=== PATIENT | female | born 1940 | race Caucasian/White ===

== ENCOUNTER → 2018-03-31 13:59 | Outpatient (CLI) | payer MEDICARE, SELFPAY ==
--- NOTE | 2018-03-31 14:02 | ECHOD_ITS ---
Reason For Study: VALVE REPLACEMENT-EVAL Procedure This was a 2D Doppler, Color Flow transthoracic echocardiogram. Exam performed in department. Left Ventricle Normal size and thickness. The estimated ejection fraction is 75 %. Stage 2 diastolic dysfunction. No regional wall motion abnormalities noted. Right Ventricle Normal size and thickness. Normal systolic function. Atria Normal left atrium. Normal right atrium. Normal atrial septum. Bubble contrast study negative for right to left interatrial shunt. Mitral Valve Moderate focal mitral valve thickening. Tricuspid Valve Normal tricuspid valve. Trivial tricuspid valve insufficiency. Right ventricular systolic pressure estimated to be 38 mmHg. Aortic Valve Trisinus/trileaflet aortic valve. Aortic sclerosis, no stenosis. Pulmonic Valve The pulmonic valve is not well visualized. Great Vessels Normal aortic root. Normal arch. Normal inferior vena cava. Inferior vena cava collapse with sniff. Pericardium/Pleural No pericardial effusion. Medication 22 gauge I.V. with prn adaptor inserted into right arm. Performed a rapid injection of agitated mix of 9 cc saline and 1cc air to assess for atrial septal defect. MMode/2D Measurements & Calculations LVIDd: 3.4 cm IVSd: 1.2 cm LVOT diam: 2.0 cm LVIDs: 2.3 cm LVPWd: 0.92 cm LVOT area: 3.1 cm2 RVDd: 2.1 cm FS: 31.4 % Ao root diam: 3.0 cm LAV(MOD-bp): 28.2 ml EDV(MOD-sp4): 49.5 ml LAV(MOD-bp) Indexed: 17.0 ml/m2 ESV(MOD-sp4): 15.2 ml LAV(MOD-sp2): 35.4 ml EF(MOD-sp4): 69.4 % LAV(MOD-sp4): 22.3 ml SV(MOD-sp4): 34.4 ml LA A4 area: 10.7 cm2 RA A4 area: 9.7 cm2 Time Measurements MV dec time: 0.53 sec Doppler Measurements & Calculations MV E max wenceslao: 60.5 cm/sec Lat Peak E' Wenceslao: 6.7 cm/sec Med Peak E' Wenceslao: 9.3 cm/sec MV A max wenceslao: 143.5 cm/sec E/E' lat: 9.1 E/E' med: 6.5 MV E/A: 0.42 MV V2 max: 140.1 cm/sec MV P1/2t max wenceslao: 67.1 cm/sec Ao V2 max: 123.4 cm/sec MV max P.8 mmHg MV P1/2t: 172.2 msec Ao max P.1 mmHg MV V2 mean: 61.4 cm/sec MV dec slope: 114.1 cm/sec2 LITO(V,D): 3.3 cm2 MV mean P.9 mmHg MVA(P1/2t): 1.3 cm2 MV V2 VTI: 31.6 cm LV V1 max: 132.8 cm/sec PA V2 max: 101.0 cm/sec TR max wenceslao: 273.6 cm/sec LV V1 max P.1 mmHg TR max P.1 mmHg Interpretation Summary The estimated ejection fraction is 75 %. Stage 2 diastolic dysfunction. Bubble contrast study negative for right to left interatrial shunt. Trivial tricuspid valve insufficiency. Right ventricular systolic pressure estimated to be 38 mmHg. Compared to echo report dated 05/11/2016, LV function has remained the same. RVSP has decreased from 44 to 38 mm Hg. Ordering Physician: João Melvin Referring Physician: SAGRARIO KATE Performed By: Jessica Reeves RDCS
== END ==
PROVIDERS: Family Provider Internal Medicine; PCP Internal Medicine; Visit Provider Internal Medicine Cardiovascular Disease
DX: I35.0 Nonrheumatic aortic (valve) stenosis (principal); Z95.2 Presence of prosthetic heart valve
CPT/HCPCS: 93306; A4216

== ENCOUNTER → 2019-01-21 12:26 | Outpatient (CLI) | payer MEDICARE, SELFPAY ==
--- NOTE | 2019-01-21 12:28 | STE_ITS ---
Reason For Study: Pre-Op Stress Results Protocol: Dobutamine Stress Echocardiogram Maximum Predicted HR: 140 bpm Target HR: 119 bpm % Maximum Predicted HR: 90 % DurationHeart Rate Stage (mm:ss) (bpm) BP Comment Baseline 65 140/96No Chest Pain DSE 10 MCG 6:18 102 138/83No Chest Pain DSE 20 MCG 2:57 126 125/96No Chest Pain Recovery 85 121/64No Chest Pain Stress Duration: 9:15 mm:ss Maximum Stress HR: 126 bpm METS: 1 Baseline Echocardiogram Findings The estimated ejection fraction is 65 %. Stress Echo Wall motion Data Resting WM Intermediate WM Stress WM Resting Wall Motion Wall Motion Stress No regional wall motion No regional wall motion abnormalities noted. abnormalities noted. EKG Data Normal intervals are noted. The patient was titrated from 10 mcg to a maximum of 20 mcg of dobutamine during the stress. The maximum heart rate attained was 126 beats per minute. This was 90% of maximum predicted heart rate. During dobutamine infusion, there were no ST or T wave changes noted to suggest ischemia. No clinical angina was noted. Interpretation Summary The estimated ejection fraction is 65 %. Normal, adequate, dobutamine echocardiogram. Negative for ischemia by EKG and echocardiographic criteria. No anginal symptoms noted. Rare PVCs and PACs noted, which is a nonspecific finding with dobutamine. Appropriate blood pressure response to dobutamine. Test terminated due to the attainment of target heart rate. Final LVEF of 75%. No complications. Ordering Physician: João Melvin Referring Physician: Vivi Blanchard Performed By: Evy Claros, LATRELL, RVT
== END ==
PROVIDERS: Family Provider Internal Medicine; PCP Internal Medicine; Referring Provider Internal Medicine Cardiovascular Disease; Visit Provider Internal Medicine Cardiovascular Disease
DX: Z01.810 Encounter for preprocedural cardiovascular examination (principal); I27.21 Secondary pulmonary arterial hypertension; I34.2 Nonrheumatic mitral (valve) stenosis; I35.0 Nonrheumatic aortic (valve) stenosis; I49.5 Sick sinus syndrome; R06.09 Other forms of dyspnea; Z95.0 Presence of cardiac pacemaker
CPT/HCPCS: 93017; 93350; J7040; A4216

== ENCOUNTER → 2019-01-27 13:09 | Outpatient (CLI) | payer MEDICARE, SELFPAY ==
[2018-09-25 14:48] VITALS: BMI 22.4
--- NOTE | 2019-01-27 13:11 | ECHOD_ITS ---
Reason For Study: PULMONARY HTN Procedure This was a 2D Doppler, Color Flow transthoracic echocardiogram. Exam performed in department. Left Ventricle Normal size and thickness. The estimated ejection fraction is 75 %. Stage 1 diastolic dysfunction. No regional wall motion abnormalities noted. Right Ventricle Normal size and thickness. ICD or pacer leads identified within the right ventricle. Normal systolic function. Atria Normal left atrium. Normal right atrium. Normal atrial septum. Mitral Valve Mild focal mitral valve calcification. Tricuspid Valve Normal tricuspid valve. Trivial tricuspid valve insufficiency. Right ventricular systolic pressure estimated to be 37 mmHg. Aortic Valve Trisinus/trileaflet aortic valve. Mild diffuse aortic valve thickening. Pulmonic Valve Normal pulmonic valve. Great Vessels Normal aortic root. Normal arch. Normal inferior vena cava. Inferior vena cava collapse with sniff. Pericardium/Pleural No pericardial effusion. MMode/2D Measurements & Calculations LVIDd: 3.7 cm IVSd: 1.1 cm Ao root diam: 3.4 cm LVIDs: 2.3 cm LVPWd: 1.1 cm RVDd: 3.0 cm FS: 36.3 % LAV(MOD-bp): 19.2 ml LVAd ap4: 24.2 cm2 SV(MOD-sp4): 37.7 ml LAV(MOD-bp) Indexed: 11.8 ml/m2 EDV(MOD-sp4): 61.3 ml LAV(MOD-sp2): 27.6 ml EDV(sp4-el): 64.7 ml LAV(MOD-sp4): 12.6 ml LVAs ap4: 13.3 cm2 ESV(MOD-sp4): 23.7 ml ESV(sp4-el): 23.8 ml EF(MOD-sp4): 61.4 % EF(sp4-el): 63.2 % SV(sp4-el): 40.9 ml LA A4 area: 8.0 cm2 LA dimension(2D): 3.3 cm RA A4 area: 8.8 cm2 Time Measurements MV dec time: 0.47 sec Doppler Measurements & Calculations MV E max wenceslao: 76.1 cm/sec Lat Peak E' Wenceslao: 5.0 cm/sec Med Peak E' Wenceslao: 6.9 cm/sec MV A max wenceslao: 115.0 cm/sec E/E' lat: 15.1 E/E' med: 11.0 MV E/A: 0.66 MV V2 max: 125.8 cm/sec Ao V2 max: 152.2 cm/sec AI max wenceslao: 509.0 cm/sec MV max P.3 mmHg Ao max P.3 mmHg AI max P.6 mmHg MV V2 mean: 67.2 cm/sec MV mean P.1 mmHg AI dec slope: 210.8 cm/sec2 MV V2 VTI: 30.6 cm AI P1/2t: 707.2 msec LV V1 max: 136.9 cm/sec PA V2 max: 89.6 cm/sec TR max wenceslao: 284.1 cm/sec LV V1 max P.5 mmHg TR max P.3 mmHg Interpretation Summary The estimated ejection fraction is 75 %. Stage 1 diastolic dysfunction. Right ventricular systolic pressure estimated to be 37 mmHg. Trivial tricuspid valve insufficiency. Compared to echo report dated 03/31/2018, LV Function has remained the same. RVSP has remained the same. Ordering Physician: João Melvin Referring Physician: SAGRARIO KATE Performed By: Jessica Reeves RDCS
== END ==
PROVIDERS: Family Provider Internal Medicine; PCP Internal Medicine; Referring Provider Internal Medicine Cardiovascular Disease; Visit Provider Internal Medicine Cardiovascular Disease
DX: I27.21 Secondary pulmonary arterial hypertension (principal); I49.5 Sick sinus syndrome; I34.2 Nonrheumatic mitral (valve) stenosis; I35.0 Nonrheumatic aortic (valve) stenosis; Z95.0 Presence of cardiac pacemaker
CPT/HCPCS: 93306

== ENCOUNTER → 2020-07-21 13:48 | Outpatient (CLI) | payer MEDICARE, SELFPAY ==
[2020-05-15 14:45] VITALS: BMI 25.4
--- NOTE | 2020-07-21 13:50 | ECHOD_ITS ---
Reason For Study: PHTN Procedure This was a 2D Doppler, Color Flow transthoracic echocardiogram. The study was technically difficult. Due to poor accoustic windows. Exam performed in department. Left Ventricle Normal size and thickness. The estimated ejection fraction is 75 %. Stage 1 diastolic dysfunction. No regional wall motion abnormalities noted. Right Ventricle Normal size and thickness. Normal systolic function. Atria Normal left atrium. Normal right atrium. Normal atrial septum. Mitral Valve Moderate focal mitral valve thickening. Tricuspid Valve Normal tricuspid valve. Trivial tricuspid valve insufficiency. Right ventricular systolic pressure estimated to be 34 mmHg. Aortic Valve Normal aortic valve. Trisinus/trileaflet aortic valve. Pulmonic Valve Normal pulmonic valve. Great Vessels Normal aortic root. Normal arch. Normal inferior vena cava. Inferior vena cava collapse with sniff. Pericardium/Pleural No pericardial effusion. MMode/2D Measurements & Calculations LVIDd: 3.7 cm IVSd: 1.1 cm LAV(MOD-bp): 22.6 ml LVIDs: 2.5 cm LVPWd: 1.1 cm LAV(MOD-bp) Indexed: 13.7 ml/m2 FS: 31.7 % LAV(MOD-sp2): 27.2 ml LAV(MOD-sp4): 17.2 ml LA dimension(2D): 3.8 cm LA A4 area: 9.1 cm2 Doppler Measurements & Calculations MV E max wenceslao: 64.5 cm/sec Lat Peak E' Wenceslao: 4.7 cm/sec Med Peak E' Wenceslao: 7.7 cm/sec MV A max wenceslao: 119.8 cm/sec E/E' lat: 13.6 E/E' med: 8.3 MV E/A: 0.54 Ao V2 max: 110.8 cm/sec LV V1 max: 104.0 cm/sec TR max wenceslao: 270.2 cm/sec Ao max P.9 mmHg LV V1 max P.3 mmHg TR max P.2 mmHg Interpretation Summary The estimated ejection fraction is 75 %. Stage 1 diastolic dysfunction. Trivial tricuspid valve insufficiency. Right ventricular systolic pressure estimated to be 34 mmHg. Compared to echo report dated 01/27/2019, no appreciable changes noted. The study was technically difficult. Ordering Physician: João Melvin Referring Physician: Vivi Blanchard Performed By: Sarah Hunter, LATRELL, RVT
== END ==
PROVIDERS: PCP Internal Medicine; Referring Provider Internal Medicine Cardiovascular Disease; Visit Provider Internal Medicine Cardiovascular Disease
DX: I27.21 Secondary pulmonary arterial hypertension (principal)
CPT/HCPCS: 93306

== ENCOUNTER 2020-12-22 11:08 | Outpatient (RCR) | payer MEDICARE, SELFPAY ==
[2020-12-14 14:14] VITALS: BMI 25.0
== END 2020-12-22 23:59 ==
LOC: IMMUN 11:08
PROVIDERS: PCP Internal Medicine; Visit Provider Family Medicine
DX: Z23 Encounter for immunization (principal)
CPT/HCPCS: 0011A; 0012A; 91301

== ENCOUNTER 2023-09-08 18:31 | Observation (INO) | payer MEDICARE, SELFPAY ==
[2023-09-08 18:32] VITALS: BP 153/91; PULSE 87; RESP 24; TEMP 36.7; O2SAT 92
[2023-09-08 18:35] VITALS: BMI 26.7
--- NOTE | 2023-09-08 18:37 | EKG12_ITS ---
Test Reason : FALL Blood Pressure : / mmHG Vent. Rate : 093 BPM Atrial Rate : 093 BPM P-R Int : 148 ms QRS Dur : 056 ms QT Int : 364 ms P-R-T Axes : 095 014 -22 degrees QTc Int : 452 ms Sinus rhythm with occasional Premature ventricular complexes ST & T wave abnormality, consider inferior ischemia Abnormal ECG When compared with ECG of 03-JUN-2016 13:16, Premature ventricular complexes are now Present Vent. rate has increased BY [address] now depressed in Anterior leads T wave inversion now evident in Inferior leads T wave inversion now evident in Anterior leads Confirmed by JACQUE VAZQUEZ, LATHA ([id number]), commercial production editor ADAM KEENAN ([id number]) on 09/10/2023 2:26:25 PM Referred By: MARIBEL Confirmed By:LATHA SANTILLAN MD
--- NOTE | 2023-09-08 18:38 | CT_ITS ---
EXAM: CT HEAD AND MAXILLOFACIAL WITHOUT INTRAVENOUS CONTRAST CLINICAL INDICATION: altered mental status TECHNIQUE: Helically acquired images were obtained of the head/brain and face without intravenous contrast. This CT exam was performed using one or more of the following dose reduction techniques: automated exposure control, adjustment of the mA and/or kV according to patient size, and/or use of iterative reconstruction technique. COMPARISON: No relevant prior studies available. FINDINGS: BRAIN AND EXTRA-AXIAL SPACES: There is non-specific periventricular hypoattenuation which is most commonly related to chronic microvascular ischemic disease in a patient of this age. There is no mass, mass-effect, or shift of the midline structures. No evidence of acute infarct or acute intracranial hemorrhage. There is no evidence of pathologic extra-axial fluid. There is no hydrocephalus. Patent basal cisterns. Posterior fossa structures are unremarkable. BONES/JOINTS: Bilateral TMJ arthrosis. No discrete lytic or blastic abnormalities. No displaced fracture. SOFT TISSUES: Left frontal scalp soft tissue swelling. No discrete fluid collections. VASCULATURE: Arteriosclerosis. SINUSES: Hyperdensity within the left maxillary sinus likely secondary to inspissated secretions or perhaps fungal elements. MASTOID AIR CELLS: No significant abnormality. Clear. ORBITS: No acute findings. DENTAL: No significant findings. No periodontal osseous erosion. IMPRESSION: 1. Left frontal scalp soft tissue swelling. No evidence of acute maxillofacial fracture. 2. Chronic microvascular ischemic changes. No CT evidence of acute intracranial pathology. 3. Chronic left maxillary sinus disease. Follow-up as clinically indicated. EXAM: CT CERVICAL SPINE WITHOUT INTRAVENOUS CONTRAST CLINICAL INDICATION: altered mental status TECHNIQUE: Helically acquired images were obtained of the cervical spine without intravenous contrast. 2D reformatted images were reviewed. This CT exam was performed using one or more of the following dose reduction techniques: automated exposure control, adjustment of the mA and/or kV according to patient size, and/or use of iterative reconstruction technique. COMPARISON: No relevant prior studies available. FINDINGS: VERTEBRAE: Multilevel facet, uncovertebral joint, and endplate osteophytosis. Degenerative anterolisthesis of C4 on C5. No fracture. No discrete lytic or blastic abnormality. Normal craniocervical junction and cervicothoracic junction. DISCS/SPINAL CANAL/NEURAL FORAMINA: Mild to moderate multilevel spinal canal stenosis. Multilevel intervertebral disc height loss. Mild to moderate multilevel neural foraminal narrowing. SOFT TISSUES: No significant abnormality. No prevertebral soft tissue swelling. VASCULATURE: Vascular calcifications in the neck. LYMPH NODES: No significant abnormality. No cervical adenopathy. LUNG APICES: Apical pulmonary scarring bilaterally. CT/Spine Cervical without Contras IMPRESSION: Degenerative changes in the cervical spine. No evidence of acute fracture. Electronically Signed: García Rivera DO at 20:35 EDT ,
[2023-09-08 18:47] LABS: Absolute Lymphocyte Count 0.98 X10^3/uL (0.83-4.51); Basophil# 0.08 X10^3/uL; Basophil% 0.6 % (0-1); Eosinophil# 0.03 X10^3/uL; Eosinophils% 0.2 % (0-5); Hematocrit 53.1 % (37-47); Hemoglobin 17.1 g/dL (12.0-15.0); Lymphocyte # 0.98 X10^3/ul (0.83-4.51); Mean Corp Hgb Conc 32.2 g/dL (32-36); Monocyte% 6.4 % (0-10); NRBC Flagged by Analyzer 0 % (0-5); Neutrophil # 11.98 X10^3/uL (2.7-7.7); Neutrophil % 85.4 % (47-70); Platelet Count 299 K/mm3 (150-450); RBC Distribution Width CV 13.4 % (11.6-14.6); RBC Distribution Width SD 44.3 fl (35.1-43.9)
--- NOTE | 2023-09-08 18:47 | EDS_ITS ---
HPI History of Present Illness Chief Complaint: Fall Narrative Narrative: 83-year-old female presenting with confusion. She is awake and alert and answering questions. She does not recall what happened to her. She was found down on the floor of unknown downtime. She does not know how she got there. She does not know if she fainted. She cannot recall the last and she remembers. She states he wakes up every day and does the same thing. She complains of some minor hip pain on the left but is able to move her left hip. Per her daughter she was found on the floor facedown and the last time she was known to be well was 1500 yesterday. Patient recently had surgery to remove a skin cancer from her face but does not recall this. She has stitches in place and the seem to be intact. [facility] Medical History Allergic rhinitis COPD (chronic obstructive pulmonary disease) LEAL (dyspnea on exertion) Dyspnea Essential hypertension GERD (gastroesophageal reflux disease) JONATAN (obstructive sleep apnea) Secondary pulmonary arterial hypertension Sick sinus syndrome Syncope Home Medications fluticasone propionate 50 mcg/actuation nasal spray,suspension (Children's Flonase Allergy Relief) 100 mcg intranasal QDAY PRN 12/24/17 [History Last Taken Unknown] cyanocobalamin (vitamin B-12) 250 mcg tablet 250 mcg PO QDAY 03/23/18 [History Last Taken Unknown] lisinopril 10 mg tablet 10 mg PO DAILY #90 tabs 12/24/19 [Rx Last Taken Unknown] cetirizine 10 mg tablet (All Day Allergy (cetirizine)) 10 mg PO DAILY PRN 06/18/21 [History Last Taken Unknown] vitamin E (dl, acetate) 180 mg (400 unit) capsule 180 mg PO DAILY 06/18/21 [History Last Taken Unknown] metoprolol succinate 25 mg tablet,extended release 24 hr 25 mg PO DAILY #90 tabs 08/25/23 [Rx Last Taken Unknown] Allergy/AdvReac Type Severity Reaction Status Date / Time No Known Allergies Allergy Verified 09/08/23 18:32 Family History Mother pacemaker Father pacemaker Surgical History History of left heart catheterization (~05/13/16) History of tonsillectomy Presence of cardiac pacemaker (~04/2016) Social History household members: none Smoking Status: Never smoker second hand exposure: No alcohol intake: never substance use type: does not use caffeine: No what type of physical activity do you participate in: other frequency: 3-4 times per week ROS ROS ED Review of Systems ROS Unobtainable: due to mental status EXAM Physical Exam Const Vital Signs: 09/08/23 18:32 09/08/23 18:44 09/08/23 20:22 Temperature 98.1 F Temperature Source Oral Pulse Rate 87 87 Respiratory Rate 24 H 28 H Respiratory Effort Normal Respiratory Depth Normal Respiratory Pattern Normal Blood Pressure 153/91 H Blood Pressure Mean 111 Pulse Ox 92 97 Oxygen Delivery Method Room Air Room Air Nasal Cannula Oxygen Flow Rate (L/min) 2 09/08/23 21:36 09/08/23 22:18 Temperature Temperature Source Pulse Rate 78 76 Respiratory Rate 26 H 24 H Respiratory Effort Respiratory Depth Respiratory Pattern Blood Pressure Blood Pressure Mean Pulse Ox 98 96 Oxygen Delivery Method Nasal Cannula Nasal Cannula Oxygen Flow Rate (L/min) 2 2 Positive well nourished General Appearance ED: NAD HEENT Reports TM's clear HEENT Narrative: Bruising noted under the bilateral eyes and the lower eyelids Tympanic Membrane ED: Yes TM's clear Eyes PERRL and EOMs intact bilaterally Chest Wall inspection of chest normal Resp normal respiratory effort and clear to auscultation bilaterally Auscultation: Negative for rales, rhonchi or wheezes Cardio regular rhythm Rate: regular rate GI normal to inspection, nondistended, normoactive bowel sounds Back/Spine no thoracic nor lumbar tenderness Extremity Extremity Narrative: Tenderness over the left greater trochanter however the patient is able to flex the hip up to the bed. Negative logroll. No leg shortening or external rotation General Extremety ED: Yes tenderness Neuro oriented x3, CN's II-XII intact bilaterally, moves all extremities, no focal motor deficits and no sensory deficits noted Susy Coma Scale: document GCS findings Spontaneous Obeys Commands Confused 14 Sensorium / Orientation: alert Motor Exam: strength 5/5 throughout Skin Skin Narrative: As described above MDM MDM MDM Narrative Medical decision making narrative: Presenting with confusion. She is awake and alert and answering questions but does not recall any events. She does not know why she was on the floor. She does not know how long she has been there. Differential includes but is not limited to ACS, PE, CHF, pneumonia, COVID, influenza, syncope, intracranial hemorrhage, skull fracture, C-spine fracture, pelvic fracture, left hip fracture, dehydration, dysrhythmia, electrolyte abnormalities, dehydration, UTI, rhabdomyolysis. CBC will be obtained to assess white blood cell count, hemoglobin, platelets. CMP to assess liver function, renal function, electrolytes, glucose, anion gap. High-sensitivity troponin and EKG will be obtained to assess for ischemia/dysrhythmia. Chest x-ray to rule out pneumonia. Urinalysis to be obtained to assess for UTI. CPK will be obtained to assess for rhabdomyolysis. BNP to assess for CHF. Left hip x-ray to rule out a fracture. Patient given a liter normal saline. We will also obtain a CT of the brain, cervical spine, facial bones. CBC shows leukocytosis of 14.0. Hemoglobin concentrated at 17.1. Platelets are normal at 299. Creatinine is elevated at 1.03 consistent with MARY. BUN creatinine ratio was normal however. Total bilirubin elevated 1.4. Direct bilirubin 0.46, AST 47. CPK 873. Patient was given a liter of normal saline. EKG on my interpretation shows sinus rhythm at a ventricular rate of 83 bpm with occasional PVCs. No ST elevation or depression. Chest x-ray on my interpretation does appear to look like pulmonary vascular congestion however BNP 45.7. High-sensitivity troponin is 21. Urinalysis shows nitrites but no other evidence of infection. CT brain, cervical spine, facial bones all within normal limits. After given a liter of normal saline and her CPK was repeated and has gone up to 891 suggest mild rhabdomyolysis. Left hip x-ray on my interpretation showed no acute fracture however the radiologist is concerned there is a slight lucency line consistent with nondisplaced fracture. Patient able to move her left leg on exam without much difficulty. Because of the interpretation I did get a CT of the lower extremity which shows no acute fracture. Ultimately since the patient lives alone she will need to be admitted. Discussed all findings with she and her daughter. Impression: 1. Acute encephalopathy 2. Mild rhabdomyolysis 3. MARY 4. Leukocytosis 5. Left hip contusion Lab Data Attestation: I reviewed the patient's lab results. Labs: Laboratory Results - last 24 hr 09/08/23 09/08/23 09/08/23 18:40 18:40 19:10 WBC 14.0 H RBC 5.90 H Hgb 17.1 H Hct 53.1 H MCV 90.0 MCH 29.0 MCHC 32.2 RDW Std Deviation 44.3 H RDW Coeff of Shilpa 13.4 Plt Count 299 MPV 9.0 Immature Gran % (Auto) 0.400 Neut % (Auto) 85.4 H Lymph % (Auto) 7.0 L [place] % (Auto) 6.4 Eos % (Auto) 0.2 Baso % (Auto) 0.6 Absolute Neuts (auto) 12.0 H Absolute Lymphs (auto) 0.98 Nucleated RBC % 0 Sodium 137 Potassium 4.3 Chloride 100 Carbon Dioxide 30.0 Anion Gap 7 BUN 17 Creatinine 1.03 H Est GFR (MDRD) Af Amer 65 Est GFR (MDRD) Non-Af 54 L BUN/Creatinine Ratio 16.5 Glucose 116 H Calcium 9.2 Total Bilirubin 1.40 H Direct Bilirubin 0.46 H AST 47 H ALT 27 Alkaline Phosphatase 71 Total Creatine Kinase 873 H 891 H Troponin I High Sens 21 B-Natriuretic Peptide 45.7 Total Protein 7.3 Albumin 3.4 Globulin 3.9 Albumin/Globulin Ratio 0.9 Urine Color Yellow Urine Clarity Clear Urine pH 5.0 Ur Specific [place] 1.030 Urine Protein 30 H Urine Glucose (UA) Normal Urine Ketones 15 H Urine Occult Blood 150 H Urine Nitrite Positive H Urine Bilirubin 1 H Urine Urobilinogen 1 H Ur Leukocyte Esterase 25 H Urine RBC 0 SEEN Urine WBC 0 SEEN Ur Squamous Epith Cells 0-5 SEEN Urine Bacteria 0 SEEN Urine Mucus 0 SEEN Radiography Diagnostic Testing: Clinical Impression(s) from Imaging Studies Brain CT 09/08/23 18:36 IMPRESSION: Degenerative changes in the cervical spine. No evidence of acute fracture. Electronically Signed: García Rivera DO at 20:35 EDT , Cervical Spine CT 09/08/23 18:38 IMPRESSION: Degenerative changes in the cervical spine. No evidence of acute fracture. Electronically Signed: García Rivera DO at 20:35 EDT , Facial/Sinus 09/08/23 18:38 IMPRESSION: Degenerative changes in the cervical spine. No evidence of acute fracture. Electronically Signed: García Rivera DO at 20:35 EDT , Chest X-Ray 09/08/23 19:34 IMPRESSION: Apparent pulmonary vascular congestion and right basilar scarring versus intrapleural fluid suggesting a small pleural effusion. Electronically Signed: García Rivera DO at 20:26 EDT , Hip/Pelvis X-Ray 09/08/23 19:34 IMPRESSION: Subtle lucency in the intertrochanteric region of the left femur perhaps indicating nondisplaced fracture. Recommend MRI or CT. Electronically Signed: García Rivera DO at 20:30 EDT , Lower Extremity CT 09/08/23 21:06 IMPRESSION: No discrete evidence of an acute fracture or dislocation. Specifically, no intratrochanteric fracture as suspected on comparison radiograph. Colonic diverticulosis without evidence of diverticulitis. Electronically Signed: García Rivera DO at 21:44 EDT , Discharge Plan Triage Chief Complaint: Fall ED Provider: Corby Frank Dx/Rx/DC Orders Prescriptions: No Action fluticasone propionate [Children's Flonase Allergy Rlf] 50 mcg/actuation spray,suspension 100 mcg INTRANASAL QDAY PRN cyanocobalamin (vit B-12) 250 mcg tablet 250 mcg tablet 250 mcg PO QDAY lisinopril 10 mg tablet 10 mg PO DAILY Qty: 90 3RF cetirizine [All Day Allergy (cetirizine)] 10 mg tablet 10 mg PO DAILY PRN vitamin E (dl, acetate) 180 mg (400 unit) capsule 180 mg PO DAILY metoprolol succinate 25 mg tablet extended release 24 hr 25 mg PO DAILY Qty: 90 3RF Primary Care Provider: Vivi Blanchard Referrals: Vivi Blanchard MD [Primary Care Provider] -
[2023-09-08] MEDS: 0.9% Normal Saline (1000mL) 1,000 ML 999 ML IV (18:54)
[2023-09-08 19:05] LABS: ALB/GLOB Ratio 0.9 RATIO (0.9-2.4); AST(SGOT) 47 U/L (15-37); Alanine Aminotransfer ALT/SGPT 27 U/L (13-56); Albumin, Serum 3.4 g/dL (3.2-5.0); Alkaline Phosphatase 71 U/L (45-117); Anion Gap 7 (5-15); BUN 17 mg/dL (7-18); BUN/Creat Ratio 16.5 RATIO (10-20); Bilirubin, Direct 0.46 mg/dL (0.00-0.30); CPK Total, Creatine Kinase 873 U/L (26-192); Calcium,Total 9.2 mg/dL (8.5-10.1); Chloride 100 mmol/L (98-107); Creatinine, Serum 1.03 mg/dL (0.55-1.02); EST Glomerular Filtration Rate 54 mL/min (>60); Est Glom Filt Rate - Afr Amer 65 mL/min (>60); Globulin 3.9 g/dL (2.2-4.2); Glucose 116 mg/dL (74-106); Potassium 4.3 mmol/L (3.5-5.1); Protein, Total 7.3 g/dL (6.4-8.2); Sodium Level 137 mmol/L (136-145); Troponin-I HS 21 pg/mL (3.0-54.0)
[2023-09-08 19:18] LABS: BNP,B-Type NATRIURETIC PEPTIDE 45.7 pg/mL (0-100)
[2023-09-08 19:18] LABS: Bacteria 0 SEEN /hpf (None Seen); Mucous, Urine 0 SEEN /hpf (<or=2+); Red Blood Cells-Urine 0 SEEN /hpf (0-5); White Blood Cells 0 SEEN /hpf (0-5)
[2023-09-08 19:24] LABS: Color, Urine Yellow (Yellow); Glucose, Dipstick Normal (Normal); Ketone-Dipstick 15 mg/dl (Negative); Leukocyte Esterase-Dipstick 25 /ul (Negative); Nitrite-Dipstick Positive (Negative); Occult Blood-Urine 150 /ul (Negative); Protein-Dipstick 30 mg/dl (Negative); Urine Clarity Clear (Clear); Urine Urobilinogen 1 mg/dl (Normal)
[2023-09-08 19:27] LABS: Urine Bilirubin Dipstick 1 mg/dL (Negative)
[2023-09-08 19:34] LABS: Squamous Epithelial Cells - UA 0-5 SEEN /hpf (5-10)
--- NOTE | 2023-09-08 19:34 | RAD_ITS ---
EXAM: XR CHEST, 1 VIEW CLINICAL INDICATION: weakness TECHNIQUE: Frontal view of the chest. COMPARISON: 06/03/2016 FINDINGS: LUNGS AND PLEURAL SPACES: Apparent pulmonary vascular congestion and right basilar scarring versus intrapleural fluid suggesting a small pleural effusion. No pneumothorax. HEART: No significant abnormality. Cardiac silhouette not enlarged. MEDIASTINUM: Central airways and mediastinal contour are unremarkable. BONES/JOINTS: Degenerative changes in the spine and shoulders. SOFT TISSUES: No significant abnormality. VASCULATURE: Atherosclerosis. TUBES, LINES AND DEVICES: Left-sided cardiac pacer. RAD/Chest 1 View (Portable) IMPRESSION: Apparent pulmonary vascular congestion and right basilar scarring versus intrapleural fluid suggesting a small pleural effusion. Electronically Signed: García Rivera DO at 20:26 EDT ,
--- NOTE | 2023-09-08 19:34 | RAD_ITS ---
EXAM: XR LEFT HIP WITH PELVIS WHEN PERFORMED, 2 OR 3 VIEWS CLINICAL INDICATION: pain TECHNIQUE: Two or three views of the left hip with pelvis when performed. COMPARISON: No relevant prior studies available. FINDINGS: BONES/JOINTS: Subtle lucency in the intertrochanteric region of the left femur perhaps indicating nondisplaced fracture. Right hip arthroplasty with apparent normal alignment. Degenerative changes in the spine, bilateral SI joints, and hips. No widening of the pubic symphysis. SOFT TISSUES: No significant abnormality. No soft tissue swelling or gas. VASCULATURE: Vascular calcifications. RAD/HIP, UNI W/ Pelvis 2-3 Views IMPRESSION: Subtle lucency in the intertrochanteric region of the left femur perhaps indicating nondisplaced fracture. Recommend MRI or CT. Electronically Signed: García Rivera DO at 20:30 EDT ,
[2023-09-08 20:22] VITALS: PULSE 87; RESP 28; O2SAT 97
--- NOTE | 2023-09-08 21:06 | CT_ITS ---
EXAM: CT LEFT LOWER EXTREMITY WITHOUT INTRAVENOUS CONTRAST CLINICAL INDICATION: pain TECHNIQUE: Helically acquired images were obtained of the left lower extremity without intravenous contrast. 2-D reformats were performed by the technologist. This CT exam was performed using one or more of the following dose reduction techniques: automated exposure control, adjustment of the mA and/or kV according to patient size, and/or use of iterative reconstruction technique. COMPARISON: Hip and pelvis radiographs on the same date. FINDINGS: BONES/JOINTS: No discrete evidence of an acute fracture or dislocation. Specifically, no intratrochanteric fracture as suspected on comparison radiograph. Trochanteric enthesopathy. Acetabular hypertrophy and hip joint space narrowing. No sclerotic or destructive changes. SOFT TISSUES: Atrophic changes of the left thigh and gluteus muscles. No soft tissue swelling or gas. No radiopaque foreign body. VASCULATURE: Vascular calcifications. OTHER FINDINGS: Colonic diverticulosis without evidence of diverticulitis. CT/Extremity Lower without Contra IMPRESSION: No discrete evidence of an acute fracture or dislocation. Specifically, no intratrochanteric fracture as suspected on comparison radiograph. Colonic diverticulosis without evidence of diverticulitis. Electronically Signed: García Rivera DO at 21:44 EDT ,
[2023-09-08 21:36] VITALS: PULSE 78; RESP 26; O2SAT 98
[2023-09-08 22:10] LABS: CPK Total, Creatine Kinase 891 U/L (26-192)
[2023-09-08 22:18] VITALS: PULSE 76; RESP 24; O2SAT 96
--- NOTE | 2023-09-08 22:30 | HP.PCM.HOS_ITS ---
[facility] - General General Date of Admission: 09/08/23 Date of Service: 09/08/23 Chief Complaint: Found on the floor HPI Narrative TINO SONI, is a 83 F with a significant history of sick sinus syndrome; hypertension; obstructive sleep apnea; syncope and GERD who was found on the floor on the day of presentation. Reportedly patient was found on the floor with face down. Her last known well was a day before presentation; and the day before she was found on the floor with her face down. Patient has some bruises on her face and she has stitches at the left supraorbital area that was there before her present situation where she was found on the floor. Emergency department doctor reported that the patient was tender at the left hip. And x-ray and CT of the left hip was unremarkable. Patient cannot recount history. Since patient lives at home by herself and her family asked the patient be observed at the hospital. [facility] Medical History (Updated 09/09/23 @ 10:[address] Fredy Hutchins MD) Allergic rhinitis COPD (chronic obstructive pulmonary disease) LEAL (dyspnea on exertion) Dyspnea Essential hypertension GERD (gastroesophageal reflux disease) JONATAN (obstructive sleep apnea) Secondary pulmonary arterial hypertension Sick sinus syndrome Syncope Home Medications fluticasone propionate 50 mcg/actuation nasal spray,suspension (Children's Flonase Allergy Relief) 100 mcg intranasal QDAY PRN 12/24/17 [History Last Taken Unknown] cyanocobalamin (vitamin B-12) 250 mcg tablet 250 mcg PO QDAY 03/23/18 [History Last Taken Unknown] lisinopril 10 mg tablet 10 mg PO DAILY #90 tabs 12/24/19 [Rx Last Taken Unknown] cetirizine 10 mg tablet (All Day Allergy (cetirizine)) 10 mg PO DAILY PRN 06/18/21 [History Last Taken Unknown] vitamin E (dl, acetate) 180 mg (400 unit) capsule 180 mg PO DAILY 06/18/21 [History Last Taken Unknown] metoprolol succinate 25 mg tablet,extended release 24 hr 25 mg PO DAILY #90 tabs 08/25/23 [Rx Last Taken Unknown] Allergy/AdvReac Type Severity Reaction Status Date / Time No Known Allergies Allergy Verified 09/08/23 18:32 Family History Mother pacemaker Father pacemaker Surgical History History of left heart catheterization (~05/13/16) History of tonsillectomy Presence of cardiac pacemaker (~04/2016) Social History household members: none Smoking Status: Never smoker second hand exposure: No alcohol intake: never substance use type: does not use caffeine: No what type of physical activity do you participate in: other frequency: 3-4 times per week ROS ROS Narrative Pertinent positives and pertinent negatives as noted in HPI. All other systems were reviewed and are negative Vital Signs Vital Signs Vital Signs: 09/08/23 18:32 09/08/23 18:44 09/08/23 20:22 Temperature 98.1 F Temperature Source Oral Pulse Rate 87 87 Respiratory Rate 24 H 28 H Respiratory Effort Normal Respiratory Depth Normal Respiratory Pattern Normal Blood Pressure 153/91 H Blood Pressure Mean 111 Pulse Ox 92 97 Oxygen Delivery Method Room Air Room Air Nasal Cannula Oxygen Flow Rate (L/min) 2 09/08/23 21:36 09/08/23 22:18 Temperature Temperature Source Pulse Rate 78 76 Respiratory Rate 26 H 24 H Respiratory Effort Respiratory Depth Respiratory Pattern Blood Pressure Blood Pressure Mean Pulse Ox 98 96 Oxygen Delivery Method Nasal Cannula Nasal Cannula Oxygen Flow Rate (L/min) 2 2 Physical Exam Narrative Physical exam: General: Well-nourished, well-developed. Head: Ecchymosis of face. Normocephalic, no tenderness Eyes: Right supraorbital area with stitches. Vision is grossly intact. EOMI ENT, no trauma, moist mucous membranes, no rhinorrhea Neck: Nontender, No thyromegaly. CVS: Regular rate and rhythm. S1-S2 present. No murmur, gallop or rub. Respiratory : clear to auscultation bilaterally, chest wall nontender Abdomen: Soft, nontender, nondistended, normal bowel sounds, no masses : Deferred Extremities: Nontender full range of motion, no trauma Skin: Normal color, no trauma, abrasions Neuro: Alert, oriented, cranial nerves II through XII grossly intact. Psychiatry: Normal mood. Normal affect. Not depressed. Not anxious. Results Lab / Micro Data 09/09/23 07:05 09/08/23 18:40 Labs: Laboratory Results - last 24 hr 09/08/23 18:40: WBC 14.0 H, RBC 5.90 H, Hgb 17.1 H, Hct 53.1 H, MCV 90.0, MCH 29.0, MCHC 32.2, RDW Std Deviation 44.3 H, RDW Coeff of Shilpa 13.4, Plt Count 299, MPV 9.0, Immature Gran % (Auto) 0.400, Neut % (Auto) 85.4 H, Lymph % (Auto) 7.0 L, [place] % (Auto) 6.4, Eos % (Auto) 0.2, Baso % (Auto) 0.6, Absolute Neuts (auto) 12.0 H, Absolute Lymphs (auto) 0.98, Nucleated RBC % 0, Sodium 137, Potassium 4.3, Chloride 100, Carbon Dioxide 30.0, Anion Gap 7, BUN 17, Creatinine 1.03 H, Est GFR (MDRD) Af Amer 65, Est GFR (MDRD) Non-Af 54 L, BUN/Creatinine Ratio 16.5, Glucose 116 H, Calcium 9.2, Total Bilirubin 1.40 H, Direct Bilirubin 0.46 H, AST 47 H, ALT 27, Alkaline Phosphatase 71, Total Creatine Kinase 873 H 09/08/23 18:40: Total Creatine Kinase 891 H, Troponin I High Sens 21, B-Lisa riuretic Peptide 45.7, Total Protein 7.3, Albumin 3.4, Globulin 3.9, Albumin/Globulin Ratio 0.9 09/08/23 19:10: Urine Color Yellow, Urine Clarity Clear, Urine pH 5.0, Ur Specific [place] 1.030, Urine Protein 30 H, Urine Glucose (UA) Normal, Urine Ketones 15 H, Urine Occult Blood 150 H, Urine Nitrite Positive H, Urine Bilirubin 1 H, Urine Urobilinogen 1 H, Ur Leukocyte Esterase 25 H, Urine RBC 0 SEEN, Urine WBC 0 SEEN, Ur Squamous Epith Cells 0-5 SEEN, Urine Bacteria 0 SEEN, Urine Mucus 0 SEEN Micro: Microbiology 09/08/23 18:57 Nasal Secretion SARS-CoV-2 & FLU Antigen (Rapid) - Final Radiology Impression Brain CT 09/08/23 18:36 IMPRESSION: Degenerative changes in the cervical spine. No evidence of acute fracture. Electronically Signed: García Rivera DO at 20:35 EDT , Cervical Spine CT 09/08/23 18:38 IMPRESSION: Degenerative changes in the cervical spine. No evidence of acute fracture. Electronically Signed: García Rivera DO at 20:35 EDT , Facial/Sinus 09/08/23 18:38 IMPRESSION: Degenerative changes in the cervical spine. No evidence of acute fracture. Electronically Signed: García Rivera DO at 20:35 EDT , Chest X-Ray 09/08/23 19:34 IMPRESSION: Apparent pulmonary vascular congestion and right basilar scarring versus intrapleural fluid suggesting a small pleural effusion. Electronically Signed: García Rivera DO at 20:26 EDT , Hip/Pelvis X-Ray 09/08/23 19:34 IMPRESSION: Subtle lucency in the intertrochanteric region of the left femur perhaps indicating nondisplaced fracture. Recommend MRI or CT. Electronically Signed: Gacría Rivera DO at 20:30 EDT , Lower Extremity CT 09/08/23 21:06 IMPRESSION: No discrete evidence of an acute fracture or dislocation. Specifically, no intratrochanteric fracture as suspected on comparison radiograph. Colonic diverticulosis without evidence of diverticulitis. Electronically Signed: García Rivera DO at 21:44 EDT , Assessment & Plan Assessment/Plan (1) Encephalopathy acute: (2) Rhabdomyolysis: QUALIFIERS: Rhabdomyolysis type: non-traumatic Qualified Code(s): M62.82 - Rhabdomyolysis (3) MARY (acute kidney injury): PLAN: Plan Acute encephalopathy. Etiology is unclear. Differential diagnosis include seizures, syncope, CVA, etc. Check vitamin B12. Check ammonia level. Initiate syncope work-up, initiate CVA work-up. Get ultrasound of carotid. Get MRI of head. NIH scale. TSH. Check EEG. Get PT and OT to evaluate patient. Get MRI and Echocardiogram. NINDS NIH scale ordered. Permissive hypertension. Mild rhabdomyolysis On presentation CPK was 873. Repeat after IV fluids was 891. Continue to trend. IV hydration ordered. AST is only mildly elevated. ALT and alkaline phosphatase are not elevated so less likely from liver and more likely from muscles. Elevated creatinine Presentation was mildly elevated at 1.03. Last creatinine on file was in 2015. At that time his creatinine was 0.77. IV hydration. Avoid nephrotoxins. Trend BMP. DVT Prophylaxis: Subcutaneous Lovenox ordered. Time spent in the patient's overall evaluation,decision-making process, review of diagnostic data, adjustment of management, discussion with other providers, nursing and ancillary staff involved in patient's care documentation, 70 minutes. Charges/Coding Visit Charges Inpatient E&M: 86884 Init Hosp L3
[2023-09-08 23:00] VITALS: PULSE 76; RESP 16; O2SAT 96
[2023-09-08 23:57] VITALS: PULSE 76; RESP 16
[2023-09-09] VITALS (9 sets, daily range): BP systolic 102–156; BP diastolic 69–100; PULSE 78–83; RESP 16–18; TEMP 36.6–37.2; O2SAT 94–100; BMI 27.6
--- NOTE | 2023-09-09 00:14 | CDU_ITS ---
Reason For Study: Syncope Rt. Velocities/BP Lt. Velocities/BP Prox CCA 58.9/8.8 cm/sec. Prox CCA 76.1/15.4 cm/sec. Mid CCA 61.7/8.8 cm/sec. Mid CCA 63/16.8 cm/sec. Dist CCA 47.5/10.7 cm/sec. Dist CCA 49.8/13.5 cm/sec. Prox ICA 53.2/8.8 cm/sec. Prox ICA 49.8/14.6 cm/sec. Mid ICA 49.4/14.5 cm/sec. Mid ICA 64.1/12.4 cm/sec. Dist ICA 48.5/11.6 cm/sec. Dist ICA 53.1/16.8 cm/sec. Rt. ICA/CCA = 0.90. Lt. ICA/CCA = 1.02. Prox ECA 48.5/6 cm/sec. Prox ECA 67.4/9.1 cm/sec. Rt. Vert. 31.5/6 cm/sec. Lt. Vert. 41/11.3 cm/sec. Right Extracranial There is homogeneous, smooth atherosclerotic plaque noted in the right common carotid artery. There is homogeneous, smooth atherosclerotic plaque noted in the right internal carotid artery. There is intimal thickening but no significant atherosclerotic plaque noted in the right external carotid artery. Antegrade flow is noted in the right vertebral artery. Left Extracranial There is intimal thickening but no significant atherosclerotic plaque noted in the left common carotid artery. There is heterogeneous, irregular atherosclerotic plaque noted in the left internal carotid artery. There is intimal thickening but no significant atherosclerotic plaque noted in the left external carotid artery. Antegrade flow is noted in the left vertebral artery. Procedure Carotid Duplex 99771. This is a Carotid Duplex examination using B-mode, color flow and specral Doppler. Exam performed portable in patient room. VL/Carotid Duplex Ultrasound Interpretation Summary Smooth plaque in the proximal right internal carotid artery with less than 50% stenosis Less than 50% stenosis right external carotid artery Minimal irregular plaque at the proximal left internal carotid artery with less than 50% stenosis Less than 50% stenosis left external carotid artery Patent antegrade vertebral arteries bilaterally Ordering Physician: Fredy Hutchins Referring Physician: Vivi Blanchard M.D. Performed By: Regina London RVT
[2023-09-09] MEDS: 0.9% Normal Saline (1000mL) 1,000 ML 100 ML IV ×3 (01:07→20:21)
--- NOTE | 2023-09-09 05:55 | ECHOD_ITS ---
Reason For Study: SYNCOPE Procedure This was a 2D Doppler, Color Flow transthoracic echocardiogram. Previous negative bubble study. The study was technically difficult. Exam performed with patient supine due to injury of left shoulder/arm/side. Exam performed portable in patient room. Left Ventricle Normal LV size. The estimated ejection fraction is 65 %. Diastolic function is indeterminate. No regional wall motion abnormalities noted. Right Ventricle Normal RV size. Normal systolic function. Atria Normal left atrium. Normal right atrium. No doppler evidence for ASD. Mitral Valve Moderate focal mitral valve calcification of the anterior leaflet. There is no mitral valve stenosis. No mitral valve insufficiency. Tricuspid Valve There is no tricuspid stenosis. No tricuspid valve insufficiency. Unable to estimate RV systolic pressure due to inadequate jet, pulmonary artery pressure probably normal. Aortic Valve Trisinus/trileaflet aortic valve. Aortic sclerosis, no stenosis. There is no aortic stenosis. No aortic valve insufficiency. Pulmonic Valve There is no pulmonic valvular stenosis. No pulmonic valve insufficiency. Great Vessels Normal aortic root. Pericardium/Pleural No pericardial effusion. MMode/2D Measurements & Calculations LVIDd: 3.8 cm IVSd: 0.92 cm Ao root diam: 3.0 cm LVIDs: 2.5 cm LVPWd: 1.1 cm RVDd: 3.1 cm FS: 34.0 % LAV(MOD-bp): 37.3 ml LVAd ap4: 15.1 cm2 LVAd ap2: 18.3 cm2 LAV(MOD-bp) Indexed: 20.9 ml/m2 LVLd ap4: 6.7 cm LVLd ap2: 6.9 cm LAV(MOD-sp2): 36.6 ml EDV(MOD-sp4): 28.9 ml EDV(MOD-sp2): 39.0 ml LAV(MOD-sp4): 36.4 ml EDV(sp4-el): 29.0 ml EDV(sp2-el): 41.2 ml LVAs ap4: 8.0 cm2 LVAs ap2: 9.5 cm2 LVLs ap4: 6.2 cm LVLs ap2: 6.1 cm ESV(MOD-sp4): 8.9 ml ESV(MOD-sp2): 12.4 ml ESV(sp4-el): 8.8 ml ESV(sp2-el): 12.5 ml EF(MOD-sp4): 69.1 % EF(MOD-sp2): 68.1 % EF(sp4-el): 69.6 % SV(MOD-sp4): 19.9 ml SV(MOD-sp2): 26.5 ml SV(sp4-el): 20.2 ml LA dimension(2D): 3.1 cm LA A4 area: 15.4 cm2 RA A4 area: 12.9 cm2 TAPSE: 1.7 cm Time Measurements MV dec time: 0.25 sec Doppler Measurements & Calculations MV E max wenceslao: 97.5 cm/sec Lat Peak E' Wenceslao: 5.9 cm/sec Med Peak E' Wenceslao: 5.2 cm/sec MV A max wenceslao: 141.4 cm/sec E/E' lat: 16.6 E/E' med: 18.8 MV E/A: 0.69 MV V2 max: 151.0 cm/sec MV P1/2t max wenceslao: 117.3 cm/sec Ao V2 max: 104.4 cm/sec MV max P.1 mmHg MV P1/2t: 81.7 msec Ao max P.4 mmHg MV V2 mean: 90.7 cm/sec MV dec slope: 420.6 cm/sec2 Ao V2 mean: 79.8 cm/sec MV mean P.6 mmHg Ao mean P.7 mmHg MV V2 VTI: 33.4 cm MVA(P1/2t): 2.7 cm2 Ao V2 VTI: 24.8 cm AV (velocity ratio): 0.93 LV V1 max: 97.6 cm/sec PA V2 max: 54.7 cm/sec TR max wenceslao: 286.4 cm/sec LV V1 max P.8 mmHg TR max P.8 mmHg LV V1 mean P.5 mmHg LV V1 mean: 77.9 cm/sec LV V1 VTI: 23.1 cm ECHO/Echo Complete Interpretation Summary The estimated ejection fraction is 65 %. Diastolic function is indeterminate. Ordering Physician: Fredy Hutchins Referring Physician: Vivi Blanchard Performed By: Sarah Hunter, LATRELL, RVT
[2023-09-09 07:18] LABS: Absolute Lymphocyte Count 1.29 X10^3/uL (0.83-4.51); Absolute Neutrophil Count 7.8 X10^3/uL (2.0-7.7); Basophil# 0.07 X10^3/uL; Basophil% 0.7 % (0-1); Hematocrit 46.6 % (37-47); Hemoglobin 14.9 g/dL (12.0-15.0); Lymphocyte # 1.29 X10^3/ul (0.83-4.51); Lymphocyte % 12.8 % (19-41); Mean Corpuscular Hgb 29.2 pg (27.0-32.0); Mean Corpuscular Volume 91.2 fL (81-99); Mean Platelet Vol. 8.9 fl (6.2-12.0); Monocyte# 0.69 X10^3/uL; Monocyte% 6.9 % (0-10); NRBC Flagged by Analyzer 0 % (0-5); Neutrophil # 7.75 X10^3/uL (2.7-7.7); Neutrophil % 77.1 % (47-70); Platelet Count 221 K/mm3 (150-450); RBC Distribution Width CV 13.5 % (11.6-14.6); RBC Distribution Width SD 45.5 fl (35.1-43.9); Red Blood Count 5.11 M/mm3 (4.2-5.4); White Blood Count 10.1 K/mm3 (4.4-11.0)
[2023-09-09 08:21] LABS: Vitamin B12 568 pg/mL (211-911)
[2023-09-09 08:30] LABS: CPK Total, Creatine Kinase 1047 U/L (26-192); Cholesterol 145 mg/dL (200); High Density Lipoprotein 36 mg/dL; Thyroid Stim Hormone (TSH) 2.13 uIU/mL (0.358-3.74); Triglycerides 158 mg/dL; Very Low Density Lipoprotein 32 mg/dL (5-40)
--- NOTE | 2023-09-09 08:58 | PN.HOSP_ITS ---
Reason for Visit Reason for Visit: Patient is an 83-year-old lady who was brought to the hospital after she was found on the floor Objective Data Objective Data Vital Signs: Vital Signs Temp Pulse Resp BP Pulse Ox O2 Del Method O2 Flow Rate 98.1 F 80 18 144/79 H 95 Nasal Cannula 2 09/09/23 06:00 09/09/23 06:00 09/09/23 06:00 09/09/23 06:00 09/09/23 06:00 09/09/23 06:00 09/09/23 06:00 Oxygen Flow Rate (L/min) 2 Oxygen Delivery Method Nasal Cannula Weight: 72.9 kg Body Mass Index (BMI) 27.6 Intake & Output: Intake and Output for Last 24 Hours 09/07/23 09/08/23 09/09/23 23:59 23:59 23:59 Intake Total 1000 / 1000 0 / 0 Output Total 100 / 100 Balance 1000 / 1000 -100 / -100 Lab / Micro Data 09/09/23 07:05 09/08/23 18:40 Labs: Laboratory Results - last 24 hr 09/08/23 18:40: WBC 14.0 H, RBC 5.90 H, Hgb 17.1 H, Hct 53.1 H, MCV 90.0, MCH 29.0, MCHC 32.2, RDW Std Deviation 44.3 H, RDW Coeff of Shilpa 13.4, Plt Count 299, MPV 9.0, Immature Gran % (Auto) 0.400, Neut % (Auto) 85.4 H, Lymph % (Auto) 7.0 L, [place] % (Auto) 6.4, Eos % (Auto) 0.2, Baso % (Auto) 0.6, Absolute Neuts (auto) 12.0 H, Absolute Lymphs (auto) 0.98, Nucleated RBC % 0, Sodium 137, Potassium 4.3, Chloride 100, Carbon Dioxide 30.0, Anion Gap 7, BUN 17, Creatinine 1.03 H, Est GFR (MDRD) Af Amer 65, Est GFR (MDRD) Non-Af 54 L, BUN/Creatinine Ratio 16.5, Glucose 116 H, Calcium 9.2, Total Bilirubin 1.40 H, Direct Bilirubin 0.46 H, AST 47 H, ALT 27, Alkaline Phosphatase 71, Total Creatine Kinase 873 H 09/08/23 18:40: Total Creatine Kinase 891 H, Troponin I High Sens 21, B- Natriuretic Peptide 45.7, Total Protein 7.3, Albumin 3.4, Globulin 3.9, Albumin/Globulin Ratio 0.9 09/08/23 19:10: Urine Color Yellow, Urine Clarity Clear, Urine pH 5.0, Ur Specific [place] 1.030, Urine Protein 30 H, Urine Glucose (UA) Normal, Urine Ketones 15 H, Urine Occult Blood 150 H, Urine Nitrite Positive H, Urine Bilirubin 1 H, Urine Urobilinogen 1 H, Ur Leukocyte Esterase 25 H, Urine RBC 0 SEEN, Urine WBC 0 SEEN, Ur Squamous Epith Cells 0-5 SEEN, Urine Bacteria 0 SEEN, Urine Mucus 0 SEEN 09/09/23 07:05: WBC 10.1, RBC 5.11, Hgb 14.9, Hct 46.6, MCV 91.2, MCH 29.2, MCHC 32.0, RDW Std Deviation 45.5 H, RDW Coeff of Shilpa 13.5, Plt Count 221, MPV 8.9, Immature Gran % (Auto) 0.500, Neut % (Auto) 77.1 H, Lymph % (Auto) 12.8 L, [place] % (Auto) 6.9, Eos % (Auto) 2.0, Baso % (Auto) 0.7, Absolute Neuts (auto) 7.8 H, Absolute Lymphs (auto) 1.29, Nucleated RBC % 0, Ammonia 30.0, Total Creatine Kinase 1047 H, Triglycerides 158, Cholesterol 145, LDL Cholesterol 77, VLDL Cholesterol 32, HDL Cholesterol 36 L, Vitamin B12 568, TSH 2.13 Micro: Microbiology 09/08/23 18:57 Nasal Secretion SARS-CoV-2 & FLU Antigen (Rapid) - Final Radiography Diagnostic Testing: Radiology Impression Brain CT 09/08/23 18:36 IMPRESSION: Degenerative changes in the cervical spine. No evidence of acute fracture. Electronically Signed: García Rivera DO at 20:35 EDT , Cervical Spine CT 09/08/23 18:38 IMPRESSION: Degenerative changes in the cervical spine. No evidence of acute fracture. Electronically Signed: García Rivera DO at 20:35 EDT , Facial/Sinus 09/08/23 18:38 IMPRESSION: Degenerative changes in the cervical spine. No evidence of acute fracture. Electronically Signed: García Rivera DO at 20:35 EDT , Chest X-Ray 09/08/23 19:34 IMPRESSION: Apparent pulmonary vascular congestion and right basilar scarring versus intrapleural fluid suggesting a small pleural effusion. Electronically Signed: García Rivera DO at 20:26 EDT , Hip/Pelvis X-Ray 09/08/23 19:34 IMPRESSION: Subtle lucency in the intertrochanteric region of the left femur perhaps indicating nondisplaced fracture. Recommend MRI or CT. Electronically Signed: García Rivera DO at 20:30 EDT , Lower Extremity CT 09/08/23 21:06 IMPRESSION: No discrete evidence of an acute fracture or dislocation. Specifically, no intratrochanteric fracture as suspected on comparison radiograph. Colonic diverticulosis without evidence of diverticulitis. Electronically Signed: García Rivera DO at 21:44 EDT , Physical Exam Narrative GENERAL: Flat affect HEENT: Atraumatic; normocephalic EYES; Anicteric, Normal Conjunctiva NECK; supple, normal thyroid, RESPIRATORY: Diminished to auscultation CARDIOVASCULAR: Regular S1 S2, GI: soft, normoactive bowel sounds, : No Renal angle tenderness; EXTREMITIES: No edema, no clubbing, MUSCULOSKELETAL: no muscle wasting NEURO: Awake; no lateralizing signs. SKIN: No Rash PSYCH; Flat affect Assessment & Plan Assessment/Plan (1) Encephalopathy acute: (2) Rhabdomyolysis: PLAN: Plan Patient is an 83-year-old lady who was brought to the hospital after she was found on the floor 1. Acute encephalopathy ? There was a suspicion of possible CVA initial head CT unremarkable, an MRI could not be performed in view of patient having a pacemaker. An EEG was performed results pending 2. Suspected cystitis ? This may explain patient's acute encephalopathy. Patient urinalysis was abnormal with positive urine nitrites as well as urine leukocyte esterase patient started on ceftriaxone cultures sent 3. Mild rhabdomyolysis ? As a result of prolonged immobilization patient is on IV fluid with subsequent monitoring of CPK levels 4. Sick sinus syndrome ? Status post pacemaker placement 5. Hypertension - Blood pressure controlled, home medications continued with dose adjustment as needed 6. DVT prophylaxis ? [place] Time spent in the patient's overall evaluation,decision-making process, review of diagnostic data, adjustment of management, discussion with other providers, nursing nursing and ancillary staff involved in patient's care documentation, 50 Minutes Charges/Coding Visit Charges Inpatient E&M: 67318 [facility] L3
[2023-09-09] MEDS: Enoxaparin 40 MG/0.4 ML Syringe SC (10:17)
--- NOTE | 2023-09-09 10:53 | CASEMGMT ---
Assessment- SW called patient's daughter Melinda introduced self and role at [facility]. Melinda was willing to participate in assessment and is able to answer all questions appropriately.? Care providers, pharmacy, and demographics verified. Melinda wishes for patient to discharge to [place] [facility] vs [place]. SW to follow for appropriate d/c plan. Living situation- Patient normally lives alone in a multi-level old farmhouse with entry steps. PCP: Dr Blanchard Specialists: [facility] Pharmacy: [facility] DME:? CPAP, walker, rollator, wheelchair, bedside commode, and raised toilet seat. ADL's/IADL's: Patient's daughter manages patient's meds. Patient has not been using a walker. Patient has not been bathing herself as the only shower is upstairs. Patient does not drive. Patient's daughter stops by patient's home 3 nights a week to assist. Past SNF/rehab: Patient has never been to a longterm Past HH: Patient has never had home health LW: Yes. Patient's daughter was notified there is not a copy at [facility] and to please bring in a copy. POA:? Yes. Patient's daughter was notified to bring in a copy for [facility]. Patient's daughter Melinda is patient's POA. Per Melinda patient also has a DNR. SW asked Melinda to also bring this in as [facility] has patient as full code right now. Plan: Per Melinda the plan was already in place to move patient into assisted living at [place] by the end of the month. However, now that patient is in the hospital Melinda would like for patient to go to [place] [facility] or [place] whichever is more appropriate at d/c. Sofie Vora [employer]
--- NOTE | 2023-09-09 11:19 | CASEMGMT ---
Discharge Planning Referral sent to [facility] via [facility]. Zehra Salgado, Discharge Planning Asst.
--- NOTE | 2023-09-09 14:51 | CHAPLAIN ---
Type of Pastoral Visit _x__ Initial Visit ___ Follow-up Visit ___ On-call Visit ___ General Patient Visit ___ Spiritual Assessment ___ Family Conference ___ Bereavement ___ Rapid Response ___ Code Blue ___ Other (describe below) Pastoral Care Referral From _x__ Patient ___ Family ___ Nurse ___ Physician ___ Automatic Riveting Machine Operator ___ Journeyman Glazier ___ Other (describe below) Sacrament/Intervention _x__ Active listening ___ Anointing ___ Nondenominational ___ Bereavement ___ Communion _x__ Yeny exploration ___ _x__ Life review _x__ Prayer ___ Reconciliation ___ Sacrament of Sick _x__ Supportive presence ___ Wedding ___ Other (describe below) Pastoral Comments patient is sitting in a chair; this professional advisor sat in chair in front of patient and asked about her life; pt goes back to her early years growing up in [place] and then going to the farm each summer at her grandparents; pt states that she now lives in a home that has been owned for 100+ years by her family; pt cannot state why she is in the hospital or what her issue has been; pt continues to talk about her life and her experiences growing up; pt weclomes a prayer; pt is member of [employer]
--- NOTE | 2023-09-09 15:14 | CASEMGMT ---
ALVIN sent PT/OT evals to [place] via [facility]. Sofie Vora FIELD GEOLOGIST BRAND MARKETING COORDINATOR
[2023-09-09] MEDS: Ceftriaxone 1 GM/50 ML BAG IV (15:46)
[2023-09-10 00:10] VITALS: BP 158/90; PULSE 74; RESP 12; TEMP 36.6; O2SAT 99
[2023-09-10 02:16] VITALS: BMI 27.6
[2023-09-10 04:00] VITALS: BP 118/68; PULSE 74; RESP 16; TEMP 36.6; O2SAT 97
[2023-09-10 05:00] VITALS: BMI 27.6
[2023-09-10] MEDS: 0.9% Normal Saline (1000mL) 1,000 ML 100 ML IV ×2 (06:04→16:51)
[2023-09-10 07:05] VITALS: O2SAT 94
[2023-09-10 07:07] LABS: Absolute Lymphocyte Count 1.03 X10^3/uL (0.83-4.51); Absolute Neutrophil Count 4.5 X10^3/uL (2.0-7.7); Basophil# 0.03 X10^3/uL; Basophil% 0.5 % (0-1); Eosinophil# 0.33 X10^3/uL; Eosinophils% 5.1 % (0-5); Hematocrit 41.5 % (37-47); Hemoglobin 13.3 g/dL (12.0-15.0); Lymphocyte # 1.03 X10^3/ul (0.83-4.51); Lymphocyte % 15.8 % (19-41); Mean Corpuscular Hgb 29.2 pg (27.0-32.0); Mean Corpuscular Volume 91.2 fL (81-99); Mean Platelet Vol. 9.1 fl (6.2-12.0); Monocyte# 0.54 X10^3/uL; Monocyte% 8.3 % (0-10); NRBC Flagged by Analyzer 0 % (0-5); Neutrophil # 4.54 X10^3/uL (2.7-7.7); Neutrophil % 69.8 % (47-70); Platelet Count 169 K/mm3 (150-450); RBC Distribution Width CV 13.6 % (11.6-14.6); RBC Distribution Width SD 45.9 fl (35.1-43.9); Red Blood Count 4.55 M/mm3 (4.2-5.4); White Blood Count 6.5 K/mm3 (4.4-11.0)
[2023-09-10 07:37] LABS: Anion Gap 4 (5-15); BUN 17 mg/dL (7-18); BUN/Creat Ratio 26.4 RATIO (10-20); CPK Total, Creatine Kinase 488 U/L (26-192); Calcium,Total 7.9 mg/dL (8.5-10.1); Chloride 109 mmol/L (98-107); Creatinine, Serum 0.64 mg/dL (0.55-1.02); EST Glomerular Filtration Rate 93 mL/min (>60); Est Glom Filt Rate - Afr Amer 113 mL/min (>60); Estimated Creatinine Clearance 35.52 ml/min; Glucose 106 mg/dL (74-106); Potassium 4.1 mmol/L (3.5-5.1); Sodium Level 141 mmol/L (136-145)
[2023-09-10 07:39] LABS: Phosphorus 3.3 mg/dL (2.5-4.9)
[2023-09-10 07:57] VITALS: BP 136/76; PULSE 70; RESP 16; TEMP 36.8; O2SAT 95
[2023-09-10] MEDS: Enoxaparin 40 MG/0.4 ML Syringe SC (10:06)
[2023-09-10] MEDS: Acetaminophen 325 MG Tablet 650 MG PO (10:07)
[2023-09-10] MEDS: Ceftriaxone 1 GM/50 ML BAG IV (10:07)
--- NOTE | 2023-09-10 10:28 | CASEMGMT ---
Call placed to patients daughter to complete HENDERSON form. HENDERSON form explained to daughter who voiced understanding. Phone call and acknowledgment was witnessed by Sofie ESQUIVEL. Original form placed in pt?s chart and copy placed in patients room. Zehra Salgado, Discharge Planning Asst.
[2023-09-10 14:32] VITALS: BP 121/73; PULSE 79; RESP 16; TEMP 37.2; O2SAT 94
--- NOTE | 2023-09-10 14:44 | CASEMGMT ---
ALVIN received a call from [employer] [facility]. They are approving patient for [facility] skilled. ALVIN will notify physician. Sofie BENAVIDEZ
--- NOTE | 2023-09-10 15:48 | TREXTCAR_ITS ---
Diet Diet Order/Speech Therapy: 09/09/23 00:14 Diet: Cardiac - Regular Food consistency:: Regular Liquid Consistency:: Regular/Thin Routine Orders/Code Status Code Status: Full Code Wound(s) Lt forehead: Wound Type: Surgical Incision Therapies Weight Bearing: Full weight bearing Physical Therapy: Eval and Treat Occupational Therapy: Eval and Treat Problem/Diagnosis (1) Encephalopathy acute: Status: Acute Code(s): G93.40 - Encephalopathy, unspecified (2) Rhabdomyolysis: Status: Acute Code(s): M62.82 - Rhabdomyolysis Plan 1. Acute encephalopathy-believed to be secondary to metabolic reasons #2 acute cystitis-organism unknown #3 rhabdomyolysis #4 essential hypertension #5 acute debility Allergies/Procedures Done in Hospital Allergies No Known Allergies Allergy (Verified 09/08/23 18:32) Procedures: None Type of Care/Length of Stay Estimated LOS: Convalescent Care Less Than 30 days Type of Care Needed: Skilled Rehab Potential: Good Prognosis: Good Additional Orders/Day of Discharge H&P will serve as current which was dated: 09/08/23 Day of Discharge: 09/10/23 Dietary and Speech Recommendations Dietitian Recommendations/Changes: Continue cardiac diet as ordered. ONS as needed once PO adequacy established with meals. Discharge Plan Admission Admit Date/Time: 09/08/23 22:38 Primary Reason for Your Visit: metabolic encephalopathy Attending Provider: David Alaniz Primary Care Provider: Vivi Blanchard Consulting Providers: Fredy Hutchins; David Alvarez Discharge Orders/Prescriptions Prescriptions: New acetaminophen 325 mg Tablet 650 mg PO Q6H PRN PRN (Reason: Pain 1-10 Or Fever>100.7) Qty: 0 0RF cephalexin 500 mg capsule 500 mg PO TID Qty: 15 0RF Rx Instructions: start 09/11/23-stop after 15 doses Continued cyanocobalamin (vit B-12) 250 mcg tablet 250 mcg tablet 250 mcg PO QDAY lisinopril 10 mg tablet 10 mg PO DAILY Qty: 90 3RF metoprolol succinate 25 mg tablet extended release 24 hr 25 mg PO DAILY Qty: 90 3RF Discontinued fluticasone propionate [Children's Flonase Allergy Rlf] 50 mcg/actuation spray,suspension 100 mcg INTRANASAL QDAY PRN cetirizine [All Day Allergy (cetirizine)] 10 mg tablet 10 mg PO DAILY PRN vitamin E (dl, acetate) 180 mg (400 unit) capsule 180 mg PO DAILY Referrals / Follow Up: Vivi Blanchard MD [Primary Care Provider] - Disposition Disposition (needs filled in before D/C Order can be placed): Care Home Facility (2) Rhabdomyolysis Qualifiers: Rhabdomyolysis type: non-traumatic Qualified Code(s): M62.82 - Rhabdomyolysis
--- NOTE | 2023-09-10 16:01 | DS.PCM_ITS ---
Providers Date of Admission: 09/08/23 Date of Discharge: 09/10/23 Primary Care Physician: Dr. Vivi Blanchard MD Reason For Visit: ACUTE ENCEPHALOPATHY, MILD RHABDO, MARY Diagnosis Discharge Diagnosis (1) Encephalopathy acute: Status: Acute Code(s): G93.40 - Encephalopathy, unspecified (2) Rhabdomyolysis: Status: Acute Code(s): M62.82 - Rhabdomyolysis Qualifiers: Rhabdomyolysis type: non-traumatic Qualified Code(s): M62.82 - Rhabdomyolysis Plan 1. Acute encephalopathy-believed to be secondary to metabolic reasons #2 acute cystitis-organism unknown #3 rhabdomyolysis #4 essential hypertension #5 acute debility #6 dehydration Additional note: Acute kidney injury was ruled out Medications at Discharge Home Medications cyanocobalamin (vitamin B-12) 250 mcg tablet 250 mcg PO QDAY 03/23/18 lisinopril 10 mg tablet 10 mg PO DAILY #90 tabs 12/24/19 metoprolol succinate 25 mg tablet,extended release 24 hr 25 mg PO DAILY #90 tabs 08/25/23 acetaminophen 325 mg tablet 650 mg (2 x 325 mg) PO Q6H PRN PRN Pain 1-10 Or Fever>100.7 #0 tabs 09/10/23 cephalexin 500 mg capsule 500 mg PO TID #15 caps 09/10/23 Hospital Course Operations None Procedures None Summary of Care Provided Minutes Spent on Discharge: 32 Hospital Course: This 83-year-old white female was seen in the emergency room at [facility] with complaints of confusion, she was found down on the floor of her home-patient lives alone, she did not know how she got on the floor, she did not know if she fainted. Per her daughter, patient was due to be moved to an assisted living facility for further care in the near future. Work-up in the emergency room revealed an elevated white blood cell count 14,000, creatinine was slightly elevated at 1.03, CPK was elevated at 873, and bilirubin was elevated at 1.4. Patient's urine was positive for nitrites, however there were no RBCs or WBCs seen and there was no bacteria seen. 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 Patient was admitted to PCU for metabolic encephalopathy, she was seen by PT and OT, it was requested that the patient go to an extended care facility for short-term rehab services by the family and the patient consented. She was treated for cystitis, at the time of discharge, patient's urine culture was pending. This examiner remove sutures from the patient's left forehead area under direction of nursing and I also took 1 suture out myself. The wound area appears to be well-healing. On 09/10/2023, patient was seen and examined: On examination she appeared in good health and spirits, she does not appear to be in any distress. Vital signs as documented. Skin warm and dry and without overt rashes. Neck without JVD, thyroid appears normal, trachea is midline, neck is supple. Lungs clear, normal air movement was noted. Heart exam notable for regular rhythm, normal sounds and absence of murmurs, rubs or gallops. Abdomen unremarkable and without evidence of organomegaly, masses, or abdominal aortic enlargement, bowel sounds are present in all 4 quadrants, no abdominal tenderness was noted. Extremities none dematous, no cyanosis was noted, no clubbing was noted. Neuro: Cranial nerves II through XII are grossly intact, no focal motor deficits were noted, sensation to light touch and pinprick is intact, motor exam 5/5 throughout. Psych: Patient is alert and oriented as to person and place, she answers most questions appropriately On 09/10/2023, patient was seen and examined and felt to be stable for discharge to an extended care facility for [facility]. Weight / BMI Weight Weight: 72.9 kg Body Mass Index (BMI) 27.6 ABG / Lab / Microbiology Data 09/10/23 06:44 09/10/23 06:44 Laboratory: Laboratory Results - last 24 hr 09/10/23 06:44: WBC 6.5, RBC 4.55, Hgb 13.3, Hct 41.5, MCV 91.2, MCH 29.2, MCHC 32.0, RDW Std Deviation 45.9 H, RDW Coeff of Shilpa 13.6, Plt Count 169, MPV 9.1, Immature Gran % (Auto) 0.500, Neut % (Auto) 69.8, Lymph % (Auto) 15.8 L, [place] % (Auto) 8.3, Eos % (Auto) 5.1 H, Baso % (Auto) 0.5, Absolute Neuts (auto) 4.5, A bsolute Lymphs (auto) 1.03, Nucleated RBC % 0, Sodium 141, Potassium 4.1, Chloride 109 H, Carbon Dioxide 28.0, Anion Gap 4 L, BUN 17, Creatinine 0.64, Est im Creat Clear Calc 35.52, Est GFR (MDRD) Af Amer 113, Est GFR (MDRD) Non-Af 93, BUN/Creatinine Ratio 26.4 H, Glucose 106, Calcium 7.9 L, Phosphorus 3.3, Magnesium 2.0, Total Creatine Kinase 488 H Microbiology: Microbiology 09/08/23 18:57 Nasal Secretion SARS-CoV-2 & FLU Antigen (Rapid) - Final Meaningful Use Info Meaningful Use Diagnoses (Choose all that apply): None applicable Discharge Plan Admission Admit Date/Time: 09/08/23 22:38 Primary Reason for Your Visit: metabolic encephalopathy Attending Provider: David Alaniz Primary Care Provider: Vivi Blanchard Consulting Providers: Fredy Hutchins; David Alvarez Discharge Orders/Prescriptions Prescriptions: New acetaminophen 325 mg Tablet 650 mg PO Q6H PRN PRN (Reason: Pain 1-10 Or Fever>100.7) Qty: 0 0RF cephalexin 500 mg capsule 500 mg PO TID Qty: 15 0RF Rx Instructions: start 09/11/23-stop after 15 doses Continued cyanocobalamin (vit B-12) 250 mcg tablet 250 mcg tablet 250 mcg PO QDAY lisinopril 10 mg tablet 10 mg PO DAILY Qty: 90 3RF metoprolol succinate 25 mg tablet extended release 24 hr 25 mg PO DAILY Qty: 90 3RF Discontinued fluticasone propionate [Children's Flonase Allergy Rlf] 50 mcg/actuation spray,suspension 100 mcg INTRANASAL QDAY PRN cetirizine [All Day Allergy (cetirizine)] 10 mg tablet 10 mg PO DAILY PRN vitamin E (dl, acetate) 180 mg (400 unit) capsule 180 mg PO DAILY Referrals / Follow Up: Vivi Blanchard MD [Primary Care Provider] - Disposition Disposition (needs filled in before D/C Order can be placed): Senior Living Facility Charges/Coding Visit Charges Inpatient E&M: 76136 Disch Hosp >30min
--- NOTE | 2023-09-10 16:17 | CASEMGMT ---
ALVIN notified physician. ALVIN notified Rukhsana at [facility] via [facility]. ALVIN sent orders to [facility] via [facility]. ALVIN notified RN that patient needs a Covid test. ALVIN completed a PASRR in [facility] system as patient is observation status in the hospital. Awaiting response from Rukhsana so transport can be arranged. Plan: d/c to [facility] under skilled level of care on a PASRR. [facility] will transport patient. Sofie Vora DUDE WRANGLEREvi BENAVIDEZ
--- NOTE | 2023-09-10 16:45 | CASEMGMT ---
SW called patient's daughter Melinda and let her know that patient will be going to [facility] longterm facility today. Melinda would like a call when transport is arranged. Plan: d/c to [facility] under skilled level of care on a PASRR. Sofie Vora PUMP MECHANIC REEMA
--- NOTE | 2023-09-10 16:54 | CASEMGMT ---
ALVIN spoke with Rukhsana and patient can go today. ALVIN asked Zehra d/eric logistics and planning manager to please set up transport. Sofie Vora GERMAN PROFESSOR REEMA
--- NOTE | 2023-09-10 17:01 | CASEMGMT ---
Discharge Planning Transport time sent to [facility] via [facility]. [facility] will transport patient by cot at 8p. Nursing, SW, and patients daughter updated. Zehra Salgado, Discharge Planning Asst.
[2023-09-10 18:26] VITALS: BP 153/83; PULSE 83; RESP 16; TEMP 36.9; O2SAT 92
--- NOTE | 2023-09-10 19:24 | NURSING ---
1924 Report called to [facility]
== END 2023-09-10 16:31 | disposition skilled nursing facility (03) ==
LOC: ED 22:46 → PCU 23:27
PROVIDERS: Internal Medicine; Admitting Provider Hospitalist; Emergency Provider Student in an Organized Health Care Education/Training Program; PCP Internal Medicine; Visit Provider Internal Medicine
DX: G93.40 Encephalopathy, unspecified (principal); J44.9 Chronic obstructive pulmonary disease, unspecified; I27.21 Secondary pulmonary arterial hypertension; I49.5 Sick sinus syndrome; M62.82 Rhabdomyolysis; R53.81 Other malaise; J32.0 Chronic maxillary sinusitis; S70.02XA Contusion of left hip, initial encounter; S00.83XA Contusion of other part of head, initial encounter; I10 Essential (primary) hypertension; W19.XXXA Unspecified fall, initial encounter; N30.00 Acute cystitis without hematuria; E86.0 Dehydration; K21.9 Gastro-esophageal reflux disease without esophagitis; Z79.899 Other long term (current) drug therapy; Z95.0 Presence of cardiac pacemaker; Z98.890 Other specified postprocedural states; Z85.828 Personal history of other malignant neoplasm of skin; R94.31 Abnormal electrocardiogram [ECG] [EKG]; I49.3 Ventricular premature depolarization; R06.09 Other forms of dyspnea; R55 Syncope and collapse
CPT/HCPCS: 15853; 36415; 70450; 70486; 71045; 72125; 73502; 73700; 80048; 80053; 80061; 80076; 81001; 82140; 82550; 82607; 83735; 83880; 84100; 84443; 84484; 85025; 87086; 87428; 87811; 93005; 93306; 93880; 94762; 95819; 96361; 96365; 96366; 96372; 97110; 97116; 97150; 97162; 97166; 97530; 97802; 99221; 99285; J7030; P9612; A4216; G0378

== ENCOUNTER → 2023-09-26 | Outpatient (REF) | payer MEDICARE, SELFPAY ==
[2023-09-26 09:40] LABS: Absolute Neutrophil Count 7.3 X10^3/uL (2.0-7.7); Basophil# 0.08 X10^3/uL; Basophil% 0.8 % (0-1); Eosinophil# 0.36 X10^3/uL; Eosinophils% 3.8 % (0-5); Hemoglobin 14.4 g/dL (12.0-15.0); Lymphocyte % 9.5 % (19-41); Mean Corp Hgb Conc 31.3 g/dL (32-36); Mean Corpuscular Hgb 28.9 pg (27.0-32.0); Mean Corpuscular Volume 92.4 fL (81-99); Mean Platelet Vol. 10.3 fl (6.2-12.0); Monocyte# 0.84 X10^3/uL; Monocyte% 8.9 % (0-10); NRBC Flagged by Analyzer 0 % (0-5); Neutrophil # 7.25 X10^3/uL (2.7-7.7); Neutrophil % 76.6 % (47-70); Platelet Count 273 K/mm3 (150-450); RBC Distribution Width CV 13.4 % (11.6-14.6); RBC Distribution Width SD 46.2 fl (35.1-43.9); Red Blood Count 4.98 M/mm3 (4.2-5.4); White Blood Count 9.5 K/mm3 (4.4-11.0)
[2023-09-26 09:56] LABS: Anion Gap 4 (5-15); BUN 15 mg/dL (7-18); BUN/Creat Ratio 20.7 RATIO (10-20); Calcium,Total 8.9 mg/dL (8.5-10.1); Chloride 102 mmol/L (98-107); Creatinine, Serum 0.73 mg/dL (0.55-1.02); EST Glomerular Filtration Rate 81 mL/min (>60); Est Glom Filt Rate - Afr Amer 98 mL/min (>60); Glucose 114 mg/dL (74-106); Potassium 4.2 mmol/L (3.5-5.1); Sodium Level 139 mmol/L (136-145)
== END ==
LOC: OLS.WHLTCC 05:00
PROVIDERS: PCP Internal Medicine; Visit Provider Internal Medicine
DX: I10 Essential (primary) hypertension (principal); G93.40 Encephalopathy, unspecified
CPT/HCPCS: 36415; 80048; 85025

== ENCOUNTER → 2023-10-24 | Outpatient (REF) | payer MEDICARE, SELFPAY ==
[2023-10-24 09:08] LABS: Absolute Lymphocyte Count 0.99 X10^3/uL (0.83-4.51); Absolute Neutrophil Count 7.7 X10^3/uL (2.0-7.7); Basophil# 0.04 X10^3/uL; Basophil% 0.4 % (0-1); Eosinophil# 0.42 X10^3/uL; Eosinophils% 4.2 % (0-5); Hemoglobin 14.7 g/dL (12.0-15.0); Lymphocyte # 0.99 X10^3/ul (0.83-4.51); Mean Corpuscular Hgb 28.9 pg (27.0-32.0); Mean Corpuscular Volume 90.6 fL (81-99); Mean Platelet Vol. 10.3 fl (6.2-12.0); Monocyte# 0.75 X10^3/uL; Monocyte% 7.6 % (0-10); NRBC Flagged by Analyzer 0 % (0-5); Neutrophil # 7.66 X10^3/uL (2.7-7.7); Neutrophil % 77.3 % (47-70); Platelet Count 246 K/mm3 (150-450); RBC Distribution Width CV 13.5 % (11.6-14.6); RBC Distribution Width SD 45.2 fl (35.1-43.9); Red Blood Count 5.08 M/mm3 (4.2-5.4); White Blood Count 9.9 K/mm3 (4.4-11.0)
[2023-10-24 09:35] LABS: Anion Gap 3 (5-15); BUN 17 mg/dL (7-18); Calcium,Total 9.1 mg/dL (8.5-10.1); Chloride 102 mmol/L (98-107); Creatinine, Serum 0.74 mg/dL (0.55-1.02); EST Glomerular Filtration Rate 79 mL/min (>60); Est Glom Filt Rate - Afr Amer 96 mL/min (>60); Glucose 107 mg/dL (74-106); Potassium 4.1 mmol/L (3.5-5.1); Sodium Level 138 mmol/L (136-145)
== END ==
LOC: OLS.WHLEAS 05:00
PROVIDERS: PCP Internal Medicine; Visit Provider Internal Medicine
DX: I10 Essential (primary) hypertension (principal)
CPT/HCPCS: 36415; 80048; 85025

== ENCOUNTER → 2023-11-26 | Outpatient (REF) | payer MEDICARE, SELFPAY ==
[2023-11-26 10:01] LABS: Absolute Lymphocyte Count 0.86 X10^3/uL (0.83-4.51); Absolute Neutrophil Count 8.1 X10^3/uL (2.0-7.7); Basophil# 0.06 X10^3/uL; Basophil% 0.6 % (0-1); Eosinophil# 0.52 X10^3/uL; Hemoglobin 13.5 g/dL (12.0-15.0); Lymphocyte # 0.86 X10^3/ul (0.83-4.51); Lymphocyte % 8.3 % (19-41); Mean Corp Hgb Conc 31.4 g/dL (32-36); Mean Corpuscular Volume 92.5 fL (81-99); Mean Platelet Vol. 10.1 fl (6.2-12.0); Monocyte# 0.81 X10^3/uL; Monocyte% 7.8 % (0-10); NRBC Flagged by Analyzer 0 % (0-5); Neutrophil # 8.06 X10^3/uL (2.7-7.7); Neutrophil % 77.7 % (47-70); Platelet Count 233 K/mm3 (150-450); RBC Distribution Width SD 47.8 fl (35.1-43.9); Red Blood Count 4.65 M/mm3 (4.2-5.4); White Blood Count 10.4 K/mm3 (4.4-11.0)
[2023-11-26 10:56] LABS: Anion Gap 6 (5-15); BUN 17 mg/dL (7-18); BUN/Creat Ratio 24.1 RATIO (10-20); Calcium,Total 9.1 mg/dL (8.5-10.1); Chloride 103 mmol/L (98-107); EST Glomerular Filtration Rate 84 mL/min (>60); Est Glom Filt Rate - Afr Amer 101 mL/min (>60); Glucose 117 mg/dL (74-106); Potassium 4.1 mmol/L (3.5-5.1); Sodium Level 140 mmol/L (136-145)
== END ==
LOC: OLS.WHLTSB 05:00
PROVIDERS: PCP Internal Medicine; Visit Provider Internal Medicine
DX: I10 Essential (primary) hypertension (principal)
CPT/HCPCS: 36415; 80048; 85025

== ENCOUNTER → 2023-12-11 | Outpatient (REF) | payer MEDICARE, SELFPAY ==
--- OUTSIDE RECORDS SUMMARY | 2023-12-11 04:22 | XMS RPT_ITS | CCD ---
Author Name Unknown Address [address] [facility], [address] [place] [address] Organization [facility] Care Team Providers Care Spinning Machine Operator Name Role Phone Cyndy Coleman Unavailable Unavailable Cyndy Coleman Unavailable Unavailable FLORENTIN Gordon, Carolina Hunt Unavailable Unavailable Alana LERMA, Tracey Arriaza Unavailable Maren Caraballo Unavailable Unavailable Poornima Capone Unavailable Unavailable Cyndy Coleman Unavailable Unavailable Mago Smith Unavailable Unavailable Mago Smith Unavailable Unavailable Mago Smith Unavailable Unavailable LULY HARRIS Admitting Unavailable LULY HARRIS Attending Unavailable RITIKA WHEELER Consulting Unavailable Mago Smith Unavailable Unavailable Sagrario Blanchard MD Primary Care Provider Luly Harris MD Unavailable Luly Harris MD Unavailable Sagrario Blanchard MD Primary Care Provider Luly Harris MD Unavailable Luly Harris MD Unavailable MAREN DUVAL Attending Unavailable TALAMPAS, SAGRARIO D Primary Care Unavailable TALAMPAS, SAGRARIO D Referring Unavailable TALAMPAS, SAGRARIO D Primary Care Unavailable TALAMPAS, SAGRARIO D Attending Unavailable TALAMPAS, SAGRARIO D Primary Care Unavailable TALAMPAS, SAGRARIO D Attending Unavailable TALAMPAS, SAGRARIO D Referring Unavailable TALAMPAS, SAGRARIO D Primary Care Unavailable Allergies Allergy Classification Reported Allergen(s) Allergy Type Date of Onset Reaction(s) Facility (20 sources) NKDA; Translations: [NKDA] drug allergy 6 [facility] Work Phone: (8 sources) Seasonal allergy; Translations: [SEASONAL ALLERGIES] Propensity to adverse reactions (disorder) 7 Other: See Comments [facility] Other [facility] NEGATED: Highlighted row has been ruled out! (4 sources) Observed no known allergies at [facility] No Known Allergies 7 propensity to adverse reactions [facility] Work Phone: Medications Completed/Discontinued Medications Medication Drug Class(es) Dates Sig (Normalized) Sig (Original) ALBUTEROL SULFATE (20 sources) beta2-Adrenergic Agonist Start: 08-28-2016 End: 12-19-2016 take 2 puff(s) by inhalation every four hours as needed VENTOLIN HFA 108 (90 Base) MCG/ACT AERS 2 puffs INH q4 hours PRN SOB ALBUTEROL SULFATE [id number] David Venturader HUMAN RESOURCE PROFESSIONAL-C Problems Active Problems Problem Classification Problem Date Documented Date Episodic/Chronic Cardiac dysrhythmias (11 sources) Sick sinus syndrome; Translations: [Sick sinus syndrome] Onset: 05-14-2016 05-14-2016 Chronic Chronic obstructive pulmonary disease and bronchiectasis (11 sources) Chronic obstructive lung disease; Translations: [Chronic obstructive pulmonary disease, unspecified] Onset: 08-28-2016 08-28-2016 Chronic Conduction disorders (17 sources) Cardiac pacemaker in situ; Translations: [Presence of cardiac pacemaker] Onset: 05-14-2016 05-14-2016 Chronic Coronary atherosclerosis and other heart disease (18 sources) Atherosclerotic heart disease of [place] coronary artery without angina pectoris; Translations: [Atherosclerotic heart disease of [place] coronary artery without angina pectoris] Onset: 06-07-2016 Resolved: 06-30-2017 06-30-2017 Chronic Diabetes mellitus without complication (4 sources) Impaired fasting glycemia; Translations: [Impaired fasting glucose] Onset: 08-29-2023 Episodic Disorders of lipid metabolism (10 sources) Mixed hyperlipidemia; Translations: [Mixed hyperlipidemia] Onset: 06-08-2009 Chronic Esophageal disorders (8 sources) Gastroesophageal reflux disease; Translations: [Gastro-esophageal reflux disease without esophagitis] Onset: 06-08-2009 06-08-2009 Chronic Essential hypertension (20 sources) Hypertensive disorder; Translations: [Essential hypertension] Onset: 11-16-2010 06-07-2016 Chronic Heart valve disorders (20 sources) Aortic stenosis, non-rheumatic ; Translations: [Nonrheumatic mitral (valve) stenosis] Onset: 06-07-2016 12-16-2016 Chronic Immunizations and screening for infectious disease (1 source) Encounter for immunization; Translations: [Encounter for immunization] Onset: 08-29-2023 Episodic Menopausal disorders (6 sources) Atrophic vaginitis; Translations: [Postmenopausal atrophic vaginitis] Onset: 03-18-2008 03-18-2008 Chronic Osteoarthritis (6 sources) Primary coxarthrosis, bilateral; Translations: [Bilateral primary osteoarthritis of hip] Onset: 05-25-2018 05-25-2018 Chronic Other aftercare (2 sources) Patient encounter status; Translations: [Other detention (current) drug therapy] Episodic Other connective tissue disease (1 source) Presence of right artificial hip joint; Translations: [Status post total replacement of right hip] Onset: 03-03-2019 Chronic Other connective tissue disease (6 sources) History of repair of hip joint; Translations: [Presence of right artificial hip joint] Onset: 03-03-2019 04-06-2019 Chronic Other screening for suspected conditions (not mental disorders or infectious disease) (3 sources) Protein level - finding; Translations: [Other specified abnormal findings of blood chemistry] Onset: 08-29-2023 07-15-2023 Episodic Other upper respiratory disease (18 sources) Allergic rhinitis; Translations: [Allergic rhinitis, unspecified] Onset: 08-28-2016 08-28-2016 Chronic Other upper respiratory disease (6 sources) Allergic rhinitis due to house dust mite; Translations: [Other allergic rhinitis] Onset: 10-21-2017 10-21-2017 Chronic Pulmonary heart disease (14 sources) Other secondary pulmonary hypertension; Translations: [Pulmonary arterial hypertension] Onset: 06-07-2016 06-07-2016 Chronic Residual codes; unclassified (20 sources) Breathing-related sleep disorder; Translations: [Obstructive sleep apnea syndrome] Onset: 10-09-2016 10-09-2016 Chronic Residual codes; unclassified (8 sources) Obstructive sleep apnea syndrome; Translations: [Obstructive sleep apnea (adult) (pediatric)] Onset: 04-07-2017 04-07-2017 Chronic Past or Other Problems Problem Classification Problem Date Documented Da te Episodic/Chronic Malaise and fatigue (4 sources) Fatigue; Translations: [Other fatigue] Onset: 07-02-2017 07-02-2017 Episodic Other lower respiratory disease (11 sources) Dyspnea; Translations: [Dyspnea, unspecified] Onset: 08-02-2016 08-02-2016 Episodic Syncope (6 sources) Syncope and collapse; Translations: [Syncope and collapse] Onset: 07-01-2017 07-01-2017 Episodic Results Test Name Value Interpretation Reference Range Facil ity Vital Signs Date Time Vital Sign Value Performing Clinician Facility 08-29-2023 13:59-0400 Body weight 72.12 kg Maren Duval UI DEVELOPER DESIGNER.REGISTERED PHYSICAL THERAPIST Work Phone: [facility] 08-29-2023 13:59-0400 Diastolic blood pressure 84 mm[Hg] Maren Duval UI DEVELOPER DESIGNER.REGISTERED PHYSICAL THERAPIST Work Phone: [facility] 08-29-2023 13:59-0400 Heart rate 78 /min Maren Duval UI DEVELOPER DESIGNER.REGISTERED PHYSICAL THERAPIST Work Phone: [facility] 08-29-2023 13:59-0400 Respiratory rate 16 /min Maren Duval UI DEVELOPER DESIGNER.REGISTERED PHYSICAL THERAPIST Work Phone: [facility] 08-29-2023 13:59-0400 Systolic blood pressure 138 mm[Hg] Maren Duval UI DEVELOPER DESIGNER.REGISTERED PHYSICAL THERAPIST Work Phone: [facility] 06-11-2023 14:56-0400 Body temperature 98.6 [degF] Sagrario Blanchard MD Work Phone: [facility] 06-11-2023 14:56-0400 Body weight 71.67 kg Sagrario Blanchard MD Work Phone: [facility] 06-11-2023 14:56-0400 Diastolic blood pressure 62 mm[Hg] Sagrario Blanchard MD Work Phone: [facility] 06-11-2023 14:56-0400 Heart rate 80 /min Sagrario Blanchard MD Work Phone: [facility] 06-11-2023 14:56-0400 Respiratory rate 18 /min Sagrario Blanchard MD Work Phone: [facility] 06-11-2023 14:56-0400 SaO2% (BldA) [Mass fraction] 95 % Sagrario Blanchard MD Work Phone: [facility] 06-11-2023 14:56-0400 Systolic blood pressure 112 mm[Hg] Sagrario Blanchard MD Work Phone: [facility] 07-02-2017 06:19-0400 BMI (Body Mass Index) 24.89 kg/m2 Mago Smith [facility] Work Phone: 07-02-2017 06:19-0400 Body Temperature 97.4 [degF] Mago Smith [facility] Work Phone: 07-02-2017 06:19-0400 BP Diastolic 80 mm[Hg] Mago Smith [facility] Work Phone: 07-02-2017 06:19-0400 BP Systolic 140 mm[Hg] Mago Smith [facility] Work Phone: 07-02-2017 06:19-0400 Height 162.56 cm Mago Luis [facility] Work Phone: 07-02-2017 06:19-0400 Pulse (Heart Rate) 76 /min Mago Smith [facility] Work Phone: 07-02-2017 06:19-0400 Respiratory Rate 18 /min Mago Smith [facility] Work Phone: 07-02-2017 06:19-0400 Weight 65.77 kg Mago Smith [facility] Work Phone: 06-30-2017 11:49-0400 BMI (Body Mass Index) 24.89 kg/m2 [facility] Work Phone: 06-30-2017 11:49-0400 BP Diastolic 84 mm[Hg] [facility] Work Phone: 06-30-2017 11:49-0400 BP Systolic 144 mm[Hg] Maren Garridoby [facility] Work Phone: 06-30-2017 11:49-0400 Height 162.56 cm [facility] Work Phone: 06-30-2017 11:49-0400 Pulse (Heart Rate) 70 /min [facility] Work Phone: 06-30-2017 11:49-0400 Respiratory Rate 18 /min [facility] Work Phone: 06-30-2017 11:49-0400 Weight 65.77 kg [facility] Work Phone: 04-07-2017 14:26-0400 BMI (Body Mass Index) 24.54 kg/m2 Mago Smith [facility] Work Phone: 04-07-2017 14:26-0400 Body Temperature 97.5 [degF] Mago Smith [facility] Work Phone: 04-07-2017 14:26-0400 BP Diastolic 97 mm[Hg] Mago Smith [facility] Work Phone: 04-07-2017 14:26-0400 BP Systolic 162 mm[Hg] Mago Luis [facility] Work Phone: 04-07-2017 14:26-0400 Height 162.56 cm Mago Smith [facility] Work Phone: 04-07-2017 14:26-0400 Pulse (Heart Rate) 69 /min Mago Smith [facility] Work Phone: 04-07-2017 14:26-0400 Pulse Oximetry 97 % Mago Smith [facility] Work Phone: 04-07-2017 14:26-0400 Respiratory Rate 18 /min Mago Smith [facility] Work Phone: 04-07-2017 14:26-0400 Weight 64.86 kg Mago Smith [facility] Work Phone: 01-02-2017 14:16-0500 Body Temperature 97.52 [degF] Mago Smith [facility] Work Phone: 01-02-2017 14:16-0500 BSA (Body Surface Area) 1.73 m2 Mago Smith [facility] Work Phone: 01-02-2017 14:16-0500 Height 162.56 cm Mago Luis [facility] Work Phone: 01-02-2017 14:16-0500 Weight 67.73 kg Mago Smith [facility] Work Phone: Encounters Encounter Date Encounter Type Care Provider Facility Start: 08-29-2023 End: 08-30-2023 ambulatory MAREN DUVAL Facility:[facility] Start: 08-29-2023 End: 08-29-2023 Office outpatient visit 25 minutes Maren Duval APRN.REGISTERED PHYSICAL THERAPIST Work Phone: [facility] Procedures Date Procedure Procedure Detail Performing Clinician Start: 08-29-2023 INFLUENZA VACCINE, P RSV FREE, AGE 65+ YR, HIGH DOSE, QUADRIVALENT (FLUZONE HIGH-DOSE) Maren Duval UI DEVELOPER DESIGNER.REGISTERED PHYSICAL THERAPIST Work Phone: Start: 02-19-2019 Antibody screen LULY HARRIS Plan of Treatment Date Care Activity Detail Author Start: 06-11-2026 DIABETES SCREEN DIABETES SCREEN [facility] Start: 06-11-2026 Diabetes Screening Diabetes Screenin g [facility] Start: 04-26-2025 DIABETES SCREEN DIABETES SCREEN [facility] Start: 06-11-2024 COVID-19 VACCINE (3 - Moderna series) COVID-19 VACCINE (3 - Moderna series) [facility] Immunizations Immunization Date Immunization Notes Care Provider Ashly vargas 08-29-2023 influenza (HD-IIV4) vaccine, age 65+ yr, high dose, quadrivalent, PF (FLUZONE HIGH-DOSE) Maren Duval UI DEVELOPER DESIGNER.REGISTERED PHYSICAL THERAPIST Work Phone: [facility] Work Phone: 12-09-2022 influenza, high-dose , quadrivalent vaccine (FLUZONE HIGH DOSE QUADRIVALENT) Sagrario Blanchard MD Work Phone: [facility] 09-28-2021 influenza, high-dose , quadrivalent vaccine (FLUZONE HIGH DOSE QUADRIVALENT) Sagrario Blanchard MD Work Phone: [facility] 08-16-2020 influenza, high-dose , quadrivalent vaccine (FLUZONE HIGH DOSE QUADRIVALENT) Sagrario Blanchard MD Work Phone: [facility] 12-15-2018 influenza, high dose seasonal, preservative-free Sagrario Blanchard MD Work Phone: [facility] 09-02-2017 influenza, high dose seasonal, preservative-free Sagrario Blanchard MD Work Phone: [facility] Work Phone: 10-09-2016 influenza, high dose seasonal, preservative-free Sagrario Blanchard MD Work Phone: [facility] 10-09-2016 influenza, high dose seasonal, preservative-free [facility] Work Phone: 10-09-2016 [id number] [facility] Work Phone: 05-01-2016 pneumococcal conjuga te vaccine, 13 valent Sagrario Blanchard MD Work Phone: [facility] 10-31-2015 influenza, high dose seasonal, preservative-free Sagrario Blanchard MD Work Phone: [facility] 10-24-2014 influenza, seasonal, injectable Sagrario Blanchard MD Work Phone: [facility] 11-08-2013 influenza virus vacc ine, unspecified formulation Sagrario Blanchard MD Work Phone: [facility] 10-11-2009 tetanus and diphther ia toxoids, adsorbed, preservative free, for adult use (2 Lf of tetanus toxoid and 2 Lf of diphtheria toxoid) Sagrario Blanchard MD Work Phone: [facility] 11-02-2008 influenza virus vacc ine, unspecified formulation Sagrario Blanchard MD Work Phone: [facility] 11-24-2007 pneumococcal polysaccharide vaccine, 23 valent Sagrario Blanchard MD Work Phone: [facility] Work Phone: Payers Date Payer Category Payer Medicare HU[employer]NA MEDICARE HU[employer]NA MEDICARE PPO [id number] 2021-Present [phone] [id number] [place] [id number] PPO [id number] 2021 Medicare [id number] Social History Date Type Detail Facility Start: 01-10-2017 End: 08-29-2023 Tobacco smoking status NHIS Never smoked tobacco [facility] Start: 01-10-2017 End: 08-29-2023 Tobacco use and exposure Smokeless tobacco non-user [facility] Start: 09-28-2021 End: 08-29-2023 Alcohol intake Current non-drinker of alcohol (finding) [facility] Start: 1940 Sex Assigned At Not on file [facility] Start: 12-09-2022 End: 06-11-2023 History of Social function [facility] Work Phone: Start: 12-09-2022 End: 06-11-2023 Tobacco use panel [facility] Work Phone: Adult Depression Screening Assessment 0 [facility] Work Phone: Medical Equipment Procedure Code Equipment Code Equipment Origin al Text Equipment Identifier Dates Head V40 Lfit 22 mm +0mm Offset Taper Cocr Femoral Primary Hip - [id number] Start: 03-03-2019 Insert Mobile Be aring Hip Oriental Orthodox 38d X3 22.2mm Acetabular Anatomic - [id number] Start: 03-03-2019 Screw Trident Secur-Fit Torx 6.5mm Titanium 25mm Bone Sterile Acetabular - [id number] Start: 03-03-2019 Clinical Notes 03-10-2017 to 08-29-2023 Maren Duval APRN.REGISTERED PHYSICAL THERAPIST - 08/29/2023 2:00 PM EDTTelephone Encounter - Amberly Wann SHADE CLOTH FINISHER - 07/18/2023 9:16 AM EDTTelephone Encounter - BirdieCarolina SHADE CLOTH FINISHER - 07/16/2023 10:42 AM EDT Note Date & Type Note Facility 08-29-2023 Note HNO ID: [id number] Author: Maren Duval APRN.REGISTERED PHYSICAL THERAPIST Service: ? Author Type: Nurse Specialist Type: Progress Notes Filed: 08/29/2023 2:40 PM Note Text: SUBJECTIVE: Influenza Vaccine(1) due on 07/25/2023 HPI Alicia Argueta is a 83 year old female. PMH significant for ACTIVE PROBLEM LIST Postmenopausal Atrophic Vaginitis Mixed Hyperlipidemia Esophageal Reflux Allergic Rhinitis Hypertension Presence of Cardiac Pacemaker Allergic Rhinitis Due to Dust Mite Primary Osteoarthritis of Both Hips Roberto On Cpap History of Right Hip Replacement Presents with daughter Melinda that helps with HPI. She notes she is in her usual state of health. Note inquiring regarding assisted living facility, [place]. Cardiology: [facility], last visit 03/2023. Follows up routinely. Device check and office visit notes doing well and likely would not need battery replacement for about 5 years. Notes taking medicines for environmental allergies, they are helpful. HTN: Without report of headache, chest pain, palpitations, dyspnea, peripheral edema, orthopnea, fatigue, and PND. Last 14 Encounter BP Readings: Date: BP: 08/29/2023 138/84 06/11/2023 112/62 12/09/2022 118/68 04/26/2022 126/82 09/28/2021 112/70 03/14/2021 126/78 07/20/2019 138/88 04/02/2019 125/80 03/29/2019 123/78 03/26/2019 118/70 03/25/2019 110/70 03/24/2019 115/72 03/23/2019 128/80 03/19/2019 118/72 Without current complaints regarding GERD. Review of Systems Constitutional: Negative. Objective BP 138/84 Pulse 78 Resp 16 Wt 72.1 kg (159 lb) BMI 27.29 kg/m? Physical Exam Vitals and nursing note reviewed. Constitutional: Appearance: Normal appearance. HENT: Head: Normocephalic and atraumatic. Eyes: Conjunctiva/sclera: Conjunctivae normal. Neck: Thyroid: No thyromegaly. Vascular: No JVD. Cardiovascular: Rate and Rhythm: Normal rate and regular rhythm. Pulses: Carotid pulses are 2+ on the right side and 2+ on the left side. Radial pulses are 2+ on the right side and 2+ on the left side. Heart sounds: Normal heart sounds. Pulmonary: Effort: Pulmonary effort is normal. Breath sounds: Normal breath sounds. Abdominal: General: Bowel sounds are normal. Palpations: Abdomen is soft. Musculoskeletal: Right lower leg: No edema. Left lower leg: No edema. Skin: General: Skin is warm and dry. Neurological: Mental Status: Mental status is at baseline. ALLERGIES Allergen Reactions Seasonal Allergies Other: See Comments Positive skin test: Dust mites and molds Medications metoprolol succinate ER (TOPROL XL) 25 mg 24 hr tablet cetirizine (ZYRTEC) 10 mg tablet Take 1 tablet by mouth once daily. lisinopril (ZESTRIL, PRINIVIL) 10 mg tablet Take 1 tablet by mouth once daily. Vitamin E 100 unit/0.25 mL drop Take by mouth once daily. Vitamin O56-Qbpcb Acid 0.5-1 mg tab Take by mouth. Friday, Friday, Friday fluticasone (FLONASE) 50 mcg/actuation nasal spray Use 2 Sprays in each nostril once daily as needed. PAST MEDICAL HISTORY Diagnosis Date Allergic rhinitis suspect mild asthma in the spring(2012) Diverticulosis of colon (without mention of hemorrhage) ESOPHAGEAL REFLUX 06/08/2009 Declined need for meds as of 06-01: plans to work on wt loss Microscopic hematuria 10/03/2008 MIXED HYPERLIPIDEMIA 06/08/2009 TG 314, HDL 41 in 06-01: will see if pt has success with wt loss Nonspecific abnormal findings on radiological and examination of lung field 06/13/2009 CT scan 06-01: right hilar LN unchanged from previous testing in 10-31 OBESITY NOS 06/08/2009 TSH 1.99 in 06-01 Sinus node dysfunction (HCC) 05/20/2016 treated with pacemaker Trochanteric bursitis of left hip 03/10/2017 PAST SURGICAL HISTORY Procedure Laterality Date COLONOSCOPY FLX DX W/COLLJ SPEC WHEN PFRMD 10/10/2011 Colonoscopy INS NEW/RPLCMT PRM PACEMAKR W/TRANS ELTRD ATRIAL Left April 2016 Perm pacemaker insert VAGINAL HYSTERECTOMY benign reasons; had prolapse Social History Tobacco Use Smoking status: Never Smokeless tobacco: Never Substance Use Topics Alcohol use: No Drug use: No FAMILY HISTORY Problem Relation Age of Onset Hypertension Mother Heart disease Mother Hypertension Sister Heart disease Sister Stroke Father Heart disease Father Cancer Paternal Grandmother Component Latest Ref Rng AND Units 04/26/2022 06/11/2023 Protein, Total 6.3 - 8.0 g/dL 7.5 6.9 Albumin 3.9 - 4.9 g/dL 4.1 4.0 Calcium 8.5 - 10.2 mg/dL 10.0 9.8 Bilirubin, Total 0.2 - 1.3 mg/dL 0.7 0.8 Alkaline Phosphatase 34 - 123 U/L 84 73 AST 13 - 35 U/L 32 28 ALT 7 - 38 U/L 28 18 Glucose 74 - 99 mg/dL 99 111 (H) BUN 7 - 21 mg/dL 13 9 Creatinine 0.58 - 0.96 mg/dL 0.93 0.91 Sodium 136 - 144 mmol/L 141 138 Potassium 3.7 - 5.1 mmol/L 4.4 4.5 Chloride 97 - 105 mmol/L 102 96 (L) CO2 22 - 30 mmol/L 27 26 Anion Gap 9 - 18 mmol/L 12 16 eGFR >=60 mL/min/1.73mA? 61 62 WBC 3.70 - 1 (more content not included)... [facility] 08-29-2023 History of Presen t illness Narrative SUBJECTIVE: Influenza Vaccine(1) due on 07/25/2023 HPI Alicia Argueta is a 83 year old female. PMH significant for ACTIVE PROBLEM LIST Postmenopausal Atrophic Vaginitis Mixed Hyperlipidemia Esophageal Reflux Allergic Rhinitis Hypertension Presence of Cardiac Pacemaker Allergic Rhinitis Due to Dust Mite Primary Osteoarthritis of Both Hips Roberto On Cpap History of Right Hip Replacement Presents with daughter Melinda that helps with HPI. She notes she is in her usual state of health. Note inquiring regarding assisted living facility, [place]. Cardiology: [facility], last visit 03/2023. Follows up routinely. Device check and office visit notes doing well and likely would not need battery replacement for about 5 years. Notes taking medicines for environmental allergies, they are helpful. HTN: Without report of headache, chest pain, palpitations, dyspnea, peripheral edema, orthopnea, fatigue, and PND. Last 14 Encounter BP Readings: Date: BP: 08/29/2023 138/84 06/11/2023 112/62 12/09/2022 118/68 04/26/2022 126/82 09/28/2021 112/70 03/14/2021 126/78 07/20/2019 138/88 04/02/2019 125/80 03/29/2019 123/78 03/26/2019 118/70 03/25/2019 110/70 03/24/2019 115/72 03/23/2019 128/80 03/19/2019 118/72 Without current complaints regarding GERD. Review of Systems Constitutional: Negative. Objective BP 138/84 Pulse 78 Resp 16 Wt 72.1 kg (159 lb) BMI 27.29 kg/m Physical Exam Vitals and nursing note reviewed. Constitutional: Appearance: Normal appearance. HENT: Head: Normocephalic and atraumatic. Eyes: Conjunctiva/sclera: Conjunctivae normal. Neck: Thyroid: No thyromegaly. Vascular: No JVD. Cardiovascular: Rate and Rhythm: Normal rate and regular rhythm. Pulses: Carotid pulses are 2+ on the right side and 2+ on the left side. Radial pulses are 2+ on the right side and 2+ on the left side. Heart sounds: Normal heart sounds. Pulmonary: Effort: Pulmonary effort is normal. Breath sounds: Normal breath sounds. Abdominal: General: Bowel sounds are normal. Palpations: Abdomen is soft. Musculoskeletal: Right lower leg: No edema. Left lower leg: No edema. Skin: General: Skin is warm and dry. Neurological: Mental Status: Mental status is at baseline. ALLERGIES Allergen Reactions Seasonal Allergies Other: See Comments Positive skin test: Dust mites and molds Medications metoprolol succinate ER (TOPROL XL) 25 mg 24 hr tablet cetirizine (ZYRTEC) 10 mg tablet Take 1 tablet by mouth once daily. lisinopril (ZESTRIL, PRINIVIL) 10 mg tablet Take 1 tablet by mouth once daily. Vitamin E 100 unit/0.25 mL drop Take by mouth once daily. Vitamin T36-Imjou Acid 0.5-1 mg tab Take by mouth. Friday, Friday, Friday fluticasone (FLONASE) 50 mcg/actuation nasal spray Use 2 Sprays in each nostril once daily as needed. PAST MEDICAL HISTORY Diagnosis Date Allergic rhinitis suspect mild asthma in the spring(2012) Diverticulosis of colon (without mention of hemorrhage) ESOPHAGEAL REFLUX 06/08/2009 Declined need for meds as of 06-01: plans to work on wt loss Microscopic hematuria 10/03/2008 MIXED HYPERLIPIDEMIA 06/08/2009 TG 314, HDL 41 in 06-01: will see if pt has success with wt loss Nonspecific abnormal findings on radiological and examination of lung field 06/13/2009 CT scan 06-01: right hilar LN unchanged from previous testing in 10-31 OBESITY NOS 06/08/2009 TSH 1.99 in 06-01 Sinus node dysfunction (HCC) 05/20/2016 treated with pacemaker Trochanteric bursitis of left hip 03/10/2017 PAST SURGICAL HISTORY Procedure Laterality Date COLONOSCOPY FLX DX W/COLLJ SPEC WHEN PFRMD 10/10/2011 Colonoscopy INS NEW/RPLCMT PRM PACEMAKR W/TRANS ELTRD ATRIAL Left April 2016 Perm pacemaker insert VAGINAL HYSTERECTOMY benign reasons; had prolapse Social History Tobacco Use Smoking status: Never Smokeless tobacco: Never Substance Use Topics Alcohol use: No Drug use: No FAMILY HISTORY Problem Relation Age of Onset Hypertension Mother Heart disease Mother Hypertension Sister Heart disease Sister Stroke Father Heart disease Father Cancer Paternal Grandmother Component Latest Ref Rng & Units 04/26/2022 06/11/2023 Protein, Total 6.3 - 8.0 g/dL 7.5 6.9 Albumin 3.9 - 4.9 g/dL 4.1 4.0 Calcium 8.5 - 10.2 mg/dL 10.0 9.8 Bilirubin, Total 0.2 - 1.3 mg/dL 0.7 0.8 Alkaline Phosphatase 34 - 123 U/L 84 73 AST 13 - 35 U/L 32 28 ALT 7 - 38 U/L 28 18 Glucose 74 - 99 mg/dL 99 111 (H) BUN 7 - 21 mg/dL 13 9 Creatinine 0.58 - 0.96 mg/dL 0.93 0.91 Sodium 136 - 144 mmol/L 141 138 Potassium 3.7 - 5.1 mmol/L 4.4 4.5 Chloride 97 - 105 mmol/L 102 96 (L) CO2 22 - 30 mmol/L 27 26 Anion Gap 9 - 18 mmol/L 12 16 eGFR >=60 mL/min/1.73m 61 62 WBC 3.70 - 11.00 k/uL 10.62 11.18 (H) RBC 3.90 - 5.20 m/uL 5.65 (H) 5.77 (H) Hemoglobin 11.5 - 15.5 g/dL 15.9 (H) 16.3 (H) Hematocrit 36.0 - 46.0 % 49.7 (H) 50.8 (H) MCV 80.0 - 100.0 fL 88.0 88.0 MCH 26.0 - 34.0 pg 28.1 28.2 MCHC 30.5 - 36.0 g/dL 32.0 32.1 RDW-CV 11.5 - 15.0 % 13.2 13.9 Platelet Count 150 - 400 k/uL 292 248 MPV 9.0 - 12.7 fL 9.6 9.9 Absolute nRBC <0.01 k/uL <0.01 <0.01 Total Cholesterol, Nonfasting <200 mg/dL 234 (H) 206 (H) Triglycerides, Nonfasting <150 mg/dL 238 (H) 209 (H) HDL Cholesterol, Nonfasting >39 mg/dL 47 42 LDL Cholesterol, Nonfasting <100 mg/dL 139 (H) 122 (H) Non HDL Cholesterol, Nonfasting <130 mg/dL 187 (H) 164 (H) VLDL Cholesterol, Nonfasting <30 mg/dL 48 (H) 42 (H) Total Chol/HDL Ratio, Nonfasting <5.10 mg/dL 4.98 4.90 LDL/HDL Ratio, Nonfasting <2.54 mg/dL 2.96 (H) 2.90 (H) Hemoglobin A1C 4.3 - 5.6 % 5.8 (H) Estimated Average Glucose mg/dL 120 Ferritin 14.7 - 205.1 ng/mL 276.0 (H) ASSESSMENT/PLAN: 1. Essential hypertension - ICD9: 401.9, ICD10: I10 (primary diagnosis) controlled - Continue current medications - Encouraged sodium restriction, DASH or Mediterranean diet - Recommend regular aerobic exercise as tolerated 2. Encounter for immunization - ICD9: V03.89, ICD10: Z23 - INFLUENZA VACCINE, PRSV FREE, AGE 65+ YR, HIGH DOSE, QUADRIVALENT (FLUZONE HIGH-DOSE) 3. Mixed hyperlipidemia - ICD9: 272.2, ICD10: E78.2 Lipids are improved. Recommend a plant based diet such as Mediterranean diet with plenty of vegetables, fruits,whole grains, fish, chicken, turkey or plant proteins and routine exercise such as walking 4. IFG (impaired fasting glucose) - ICD9: 790.21, ICD10: R73.01 Hemoglobin A1c is a little elevated but still low level of diabetes. 5. Elevated ferritin - ICD9: 790.6, ICD10: R79.89 Recheck with next lab work 6. Gastroesophageal reflux disease, unspecified whether esophagitis present - ICD9: 530.81, ICD10: K21.9 controlled, continue with lifestyle measures Maren Duval APRN.REGISTERED PHYSICAL THERAPIST Medical Decision Making: Problems: Moderate: 2+ stable chronic illnesses Risk: Moderate: Drug management Medical Decision Making Level: 4 - Moderate documented in this encounter [facility] 07-18-2023 Miscellaneous Notes Results below given to Melinda. Amberly Wan LPN ----- Message from Sagrario Blanchard MD sent at 07/15/2023 11:49 PM EDT ----- White blood cell count slightly elevated, along with red blood cell count, hemoglobin and hematocrit. HgA1C a little elevated but still below diabetes level. Ferritin slightly elevated. CMP fine for not being fasting (glucose under 120) Lipids with improved triglycerides and LDL. Labs ordered for next follow up. documented in this encounter [facility] 06-11-2023 Note HNO ID: [id number] Author: Sagrario Blanchard MD Service: ? Author Type: Physician Type: Progress Notes Filed: 07/15/2023 11:55 PM Note Text: This note was created using NoteWriter. Subjective Alicia Argueta is a 83 year old female. Patient presents with: Established Patient SUBJECTIVE: Alicia Argueta is a 83 year old year old lady here today for follow up appointment for review of medical conditions. Doing well. Burning sensation of eyes noted. Stable control of medical issues as noted in assessment and plan. PAST MEDICAL HISTORY Diagnosis Date Allergic rhinitis suspect mild asthma in the spring(2012) Diverticulosis of colon (without mention of hemorrhage) ESOPHAGEAL REFLUX 06/08/2009 Declined need for meds as of 06-01: plans to work on wt loss Microscopic hematuria 10/03/2008 MIXED HYPERLIPIDEMIA 06/08/2009 TG 314, HDL 41 in 06-01: will see if pt has success with wt loss Nonspecific abnormal findings on radiological and examination of lung field 06/13/2009 CT scan 06-01: right hilar LN unchanged from previous testing in 10-31 OBESITY NOS 06/08/2009 TSH 1.99 in 06-01 Sinus node dysfunction (HCC) 05/20/2016 treated with pacemaker Trochanteric bursitis of left hip 03/10/2017 Current Outpatient Medications Medication Sig cetirizine (ZYRTEC) 10 mg tablet Take 1 tablet by mouth once daily. lisinopril (ZESTRIL, PRINIVIL) 10 mg tablet Take 1 tablet by mouth once daily. Vitamin E 100 unit/0.25 mL drop Take by mouth once daily. Vitamin B26-Sleuv Acid 0.5-1 mg tab Take by mouth. Friday, Friday, Friday fluticasone (FLONASE) 50 mcg/actuation nasal spray Use 2 Sprays in each nostril once daily as needed. No current facility-administered medications for this visit. Review of Systems Objective BP 112/62 Pulse 80 Temp 37 ?C (98.6 ?F) Resp 18 Wt 71.7 kg (158 lb) SpO2 95% BMI 27.12 kg/m? Last 5 Encounter Wt Readings: Date: Wt: 06/11/2023 71.7 kg (158 lb) 12/09/2022 70.3 kg (154 lb 14.4 oz) 04/26/2022 67.6 kg (149 lb) 09/28/2021 63 kg (139 lb) 03/14/2021 66.2 kg (146 lb) No waist measurement recorded Estimated body mass index is 27.12 kg/m? as calculated from the following: Height as of 03/03/19: 162.6 cm (5' 4 ). Weight as of this encounter: 71.7 kg (158 lb). Last 5 Encounter BP Readings: Date: BP: 06/11/2023 112/62 12/09/2022 118/68 04/26/2022 126/82 09/28/2021 112/70 03/14/2021 126/78 Physical Exam Constitutional: Appearance: Normal appearance. HENT: Head: Normocephalic. Eyes: Conjunctiva/sclera: Conjunctivae normal. Cardiovascular: Rate and Rhythm: Normal rate and regular rhythm. Heart sounds: Normal heart sounds. Pulmonary: Effort: Pulmonary effort is normal. Breath sounds: Normal breath sounds. Skin: General: Skin is warm and dry. Neurological: General: No focal deficit present. Mental Status: She is alert and oriented to person, place, and time. Psychiatric: Attention and Perception: Attention and perception normal. Mood and Affect: Mood and affect normal. Speech: Speech normal. Behavior: Behavior is cooperative. Judgment: Judgment normal. Hemoglobin A1C (%) Date Value 06/11/2023 5.8 03/14/2021 5.4 01/28/2020 5.4 05/25/2018 5.4 10/24/2016 5.7 04/25/[address] out Assessment and Plan Encounter Diagnosis ICD-10-CM 1. Essential hypertension I10 2. IFG (impaired fasting glucose) R73.01 3. Mixed hyperlipidemia E78.2 LIPID PANEL, NONFASTING Above issues addressed with patient and daughter (Melinda). Patient involved in shared decision making for management of medical issues. History and medications reviewed. Epic updated as needed Refills and/or prescriptions taken care of and meds adjusted as indicated after reviewed history, exam and labs. Health Maintenance reviewed. Updated record and/or ordered tests as recorded. Encouraged on efforts at healthy diet and regular exercise and adequate sleep. Needs to keep working on diet and exercise with lifestyle changes for effective weight loss as well as prevention of DM, and control of BP and lipids. Sagrario Blanchard MD [facility] 06-11-2023 History of Presen t illness Narrative This note was created using NoteWriter. Subjective Alicia Argueta is a 83 year old female. Patient presents with: Established Patient SUBJECTIVE: Alicia Argueta is a 83 year old year old lady here today for follow up appointment for review of medical conditions. Doing well. Burning sensation of eyes noted. Stable control of medical issues as noted in assessment and plan. PAST MEDICAL HISTORY Diagnosis Date Allergic rhinitis suspect mild asthma in the spring(2012) Diverticulosis of colon (without mention of hemorrhage) ESOPHAGEAL REFLUX 06/08/2009 Declined need for meds as of 06-01: plans to work on wt loss Microscopic hematuria 10/03/2008 MIXED HYPERLIPIDEMIA 06/08/2009 TG 314, HDL 41 in 06-01: will see if pt has success with wt loss Nonspecific abnormal findings on radiological and examination of lung field 06/13/2009 CT scan 06-01: right hilar LN unchanged from previous testing in 10-31 OBESITY NOS 06/08/2009 TSH 1.99 in 06-01 Sinus node dysfunction (HCC) 05/20/2016 treated with pacemaker Trochanteric bursitis of left hip 03/10/2017 Current Outpatient Medications Medication Sig cetirizine (ZYRTEC) 10 mg tablet Take 1 tablet by mouth once daily. lisinopril (ZESTRIL, PRINIVIL) 10 mg tablet Take 1 tablet by mouth once daily. Vitamin E 100 unit/0.25 mL drop Take by mouth once daily. Vitamin R58-Qpfpi Acid 0.5-1 mg tab Take by mouth. Friday, Friday, Friday fluticasone (FLONASE) 50 mcg/actuation nasal spray Use 2 Sprays in each nostril once daily as needed. No current facility-administered medications for this visit. Review of Systems Objective BP 112/62 Pulse 80 Temp 37 C (98.6 F) Resp 18 Wt 71.7 kg (158 lb) SpO2 95% BMI 27.12 kg/m Last 5 Encounter Wt Readings: Date: Wt: 06/11/2023 71.7 kg (158 lb) 12/09/2022 70.3 kg (154 lb 14.4 oz) 04/26/2022 67.6 kg (149 lb) 09/28/2021 63 kg (139 lb) 03/14/2021 66.2 kg (146 lb) No waist measurement recorded Estimated body mass index is 27.12 kg/m as calculated from the following: Height as of 03/03/19: 162.6 cm (5' 4 ). Weight as of this encounter: 71.7 kg (158 lb). Last 5 Encounter BP Readings: Date: BP: 06/11/2023 112/62 12/09/2022 118/68 04/26/2022 126/82 09/28/2021 112/70 03/14/2021 126/78 Physical Exam Constitutional: Appearance: Normal appearance. HENT: Head: Normocephalic. Eyes: Conjunctiva/sclera: Conjunctivae normal. Cardiovascular: Rate and Rhythm: Normal rate and regular rhythm. Heart sounds: Normal heart sounds. Pulmonary: Effort: Pulmonary effort is normal. Breath sounds: Normal breath sounds. Skin: General: Skin is warm and dry. Neurological: General: No focal deficit present. Mental Status: She is alert and oriented to person, place, and time. Psychiatric: Attention and Perception: Attention and perception normal. Mood and Affect: Mood and affect normal. Speech: Speech normal. Behavior: Behavior is cooperative. Judgment: Judgment normal. Hemoglobin A1C (%) Date Value 06/11/2023 5.8 03/14/2021 5.4 01/28/2020 5.4 05/25/2018 5.4 10/24/2016 5.7 04/25/[address] out Assessment and Plan Encounter Diagnosis ICD-10-CM 1. Essential hypertension I10 2. IFG (impaired fasting glucose) R73.01 3. Mixed hyperlipidemia E78.2 LIPID PANEL, NONFASTING Above issues addressed with patient and daughter (Melinda). Patient involved in shared decision making for management of medical issues. History and medications reviewed. Epic updated as needed Refills and/or prescriptions taken care of and meds adjusted as indicated after reviewed history, exam and labs. Health Maintenance reviewed. Updated record and/or ordered tests as recorded. Encouraged on efforts at healthy diet and regular exercise and adequate sleep. Needs to keep working on diet and exercise with lifestyle changes for effective weight loss as well as prevention of DM, and control of BP and lipids. Sagrario Blanchard MD documented in this encounter [facility] 12-12-2022 Miscellaneous Notes Daughter notified apt has been made and refill sent to the pharmacy. Amberly Wan LPN The following approved medication requests have been transmitted electronically. Requested Prescriptions Signed Prescriptions Disp Refills cetirizine (ZYRTEC) 10 mg tablet 90 tablet 3 Sig: Take 1 tablet by mouth once daily. Authorizing Provider: SAGRARIO BLANCHARD lisinopril (ZESTRIL, PRINIVIL) 10 mg tablet 90 tablet 3 Sig: Take 1 tablet by mouth once daily. Authorizing Provider: SAGRARIO BLANCHARD MD Patient has been identified by name and date of : daughter phones for refill(s): Requested Prescriptions Pending Prescriptions Disp Refills cetirizine (ZYRTEC) 10 mg tablet 90 tablet 3 Sig: Take 1 tablet by mouth once daily. lisinopril (ZESTRIL, PRINIVIL) 10 mg tablet 90 tablet 3 Sig: Take 1 tablet by mouth once daily. Date of last office visit in primary care: 12/09/2022 Last 2 Encounter Wt Readings: Date: Wt: 12/09/2022 70.3 kg (154 lb 14.4 oz) 04/26/2022 67.6 kg (149 lb) Previous labs/tests for medication: Blood Pressure: BUN (mg/dL) Date Value 04/26/2022 13 03/14/2021 10 Sodium (mmol/L) Date Value 04/26/2022 141 03/14/2021 141 Last 1 Encounter BP Readings: Date: BP: 12/09/2022 118/68 Please advise. Thank you. Kristin Kirk LPN documented in this encounter [facility] 12-09-2022 Note HNO ID: [id number] Author: Sagrario Blanchard MD Service: ? Author Type: Physician Type: Progress Notes Filed: 01/05/2023 10:58 PM Note Text: This note was created using Sumoingriter. Subjective Alicia Argueta is a 82 year old female. Patient presents with: F/U 6 months SUBJECTIVE: Alicia Argueta is a 82 year old year old lady here today for 6 month follow up appointment for review of medical conditions. Noted nonhealing wound on forehead the last few months (after last appointment). Looks like going to heal then wouldn't. PAST MEDICAL HISTORY Diagnosis Date Allergic rhinitis suspect mild asthma in the spring(2012) Diverticulosis of colon (without mention of hemorrhage) ESOPHAGEAL REFLUX 06/08/2009 Declined need for meds as of 06-01: plans to work on wt loss Microscopic hematuria 10/03/2008 MIXED HYPERLIPIDEMIA 06/08/2009 TG 314, HDL 41 in 06-01: will see if pt has success with wt loss Nonspecific abnormal findings on radiological and examination of lung field 06/13/2009 CT scan 06-01: right hilar LN unchanged from previous testing in 10-31 OBESITY NOS 06/08/2009 TSH 1.99 in 06-01 Sinus node dysfunction (HCC) 05/20/2016 treated with pacemaker Trochanteric bursitis of left hip 03/10/2017 Current Outpatient Medications Medication Sig cetirizine (ZYRTEC) 10 mg tablet Take 1 tablet by mouth once daily. lisinopril (ZESTRIL, PRINIVIL) 10 mg tablet Take 1 tablet by mouth once daily. Vitamin E 100 unit/0.25 mL drop Take by mouth once daily. Vitamin X47-Yfsmm Acid 0.5-1 mg tab Take by mouth. Friday, Friday, Friday fluticasone (FLONASE) 50 mcg/actuation nasal spray Use 2 Sprays in each nostril once daily as needed. No current facility-administered medications for this visit. Review of Systems Objective BP 118/68 Pulse 80 Temp 36.7 ?C (98.1 ?F) Resp 18 Wt 70.3 kg (154 lb 14.4 oz) SpO2 95% BMI 26.59 kg/m? Last 5 Encounter Wt Readings: Date: Wt: 12/09/2022 70.3 kg (154 lb 14.4 oz) 04/26/2022 67.6 kg (149 lb) 09/28/2021 63 kg (139 lb) 03/14/2021 66.2 kg (146 lb) 07/20/2019 64.9 kg (143 lb) No waist measurement recorded Estimated body mass index is 26.59 kg/m? as calculated from the following: Height as of 03/03/19: 162.6 cm (5' 4 ). Weight as of this encounter: 70.3 kg (154 lb 14.4 oz). Last 5 Encounter BP Readings: Date: BP: 12/09/2022 118/68 04/26/2022 126/82 09/28/2021 112/70 03/14/2021 126/78 07/20/2019 138/88 Physical Exam Constitutional: Appearance: Normal appearance. HENT: Head: Normocephalic. Eyes: Conjunctiva/sclera: Conjunctivae normal. Cardiovascular: Rate and Rhythm: Normal rate and regular rhythm. Heart sounds: Normal heart sounds. Pulmonary: Effort: Pulmonary effort is normal. Breath sounds: Normal breath sounds. Skin: General: Skin is warm and dry. Neurological: General: No focal deficit present. Mental Status: She is alert and oriented to person, place, and time. Psychiatric: Attention and Perception: Attention normal. Mood and Affect: Mood and affect normal. Speech: Speech normal. Behavior: Behavior is cooperative. Assessment and Plan Encounter Diagnosis ICD-10-CM 1. Essential hypertension I10 COMP METABOLIC PANEL CBC FERRITIN BLD 2. Nonhealing nonsurgical wound T14.8XXA forehead, left sidel dark crust noted but no bleeding; not hot ,red or painful or tender;' no signs of abscess 3. IFG (impaired fasting glucose) R73.01 COMP METABOLIC PANEL HGB A1C 4. Mixed hyperlipidemia E78.2 LIPID PANEL BASIC 5. Encounter for immunization Z23 INFLUENZA SEASONAL QUADRIVALENT HIGH DOSE AGE 65+ Above issues addressed with patient. Patient involved in shared decision making for management of medical issues. History and medications reviewed. Epic updated as needed Refills and/or prescriptions taken care of and meds adjusted as indicated after reviewed history, exam and labs. Health Maintenance reviewed. Updated record and/or ordered tests as recorded. Encouraged on efforts at healthy diet and regular exercise and adequate sleep. Dermatology evaluation if wound does not heal. Continue present meds. Continue present management. Further evaluation and treatment as indicated. Sagrario Blanchard MD [facility] 07-11-2022 Miscellaneous Notes Spoke with patient's daughter. Given message from provider's office. She verbalizes understanding. Sarahi Galeano RN Message left for pt's daughter to return call to a nurse. ----- Message from Sagrario Blanchard MD sent at 07/11/2022 1:08 PM EDT ----- Red blood cell counts up again--has been up and down over the years. Continues to monitor. CMP within normal limits Lipids with LDL up but TG improved from 349 to 238. Continues to avoid too much processed carbs. HDL is back up and good at 47 Labs prior to November appointment ordered (or done same day if hard for her to come in prior) documented in this encounter [facility] documented as of this encounter (statuses as of 07/11/2022) [facility] History of Past illness Narrative* Problem Noted Date Resolved Date Trochanteric bursitis of left hip 03/10/2017 05/25/2018 Sinus node dysfunction 05/20/2016 8 Overview: treated with pacemaker IFG (impaired fasting glucose) 10/31/2015 1 01/02/2016 Nonspecific abnormal finding s on radiological and examination of lung field 06/13/2009 10/31/2015 Overview: CT scan 06-01: right hilar LN unchanged from previous testing in 10-31 Obesity, unspecified 06/08/2009 10/31/2015 Overview: TSH 1.99 in 06-01 SLEEP APNEA NOS--presumed by Dr. Lugo 06/08/20 09 11/06/2012 Overview: Pt plans to check with insurance about coverage as of 06-01 Microscopic hematuria 10/03/2008 10/31/2015 Urethritis, unspecified 03/18/2008 10/31/20 15 ILEALTIBIAL BAND FRICTION SYND 10/28/2007 1 01/01/2015 Hematuria 10/28/2007 10/31/2015 documented as of this encounter (statuses as of 07/11/2022) [facility] History of Past illness Narrative* Problem Noted Date Resolved Date Trochanteric bursitis of left hip 03/10/2017 05/25/2018 Sinus node dysfunction 05/20/2016 8 Overview: treated with pacemaker IFG (impaired fasting glucose) 10/31/2015 1 01/02/2016 Nonspecific abnormal finding s on radiological and examination of lung field 06/13/2009 10/31/2015 Overview: CT scan 06-01: right hilar LN unchanged from previous testing in 10-31 Obesity, unspecified 06/08/2009 10/31/2015 Overview: TSH 1.99 in 06-01 SLEEP APNEA NOS--presumed by Dr. Lugo 06/08/20 09 11/06/2012 Overview: Pt plans to check with insurance about coverage as of 06-01 Microscopic hematuria 10/03/2008 10/31/2015 Urethritis, unspecified 03/18/2008 10/31/20 15 ILEALTIBIAL BAND FRICTION SYND 10/28/2007 1 01/01/2015 Hematuria 10/28/2007 10/31/2015 documented as of this encounter (statuses as of 12/12/2022) [facility] History of Past illness Narrative* Problem Noted Date Diagnosed Date Resolved Date Trochanteric bursitis of left hip 03/10/2017 05/25/2018 Sinus node dysfunction 05/20/201606/09 Overview: treated with pacemaker IFG (impaired fasting glucose) 10/31/2015 11/01/2016 Nonspecific abnormal finding s on radiological and examination of lung field 06/13/2009 10/31/2015 Overview: CT scan 06-01: right hilar LN unchanged from previous testing in 10-31 Obesity, unspecified 06/08/2009 015 Overview: TSH 1.99 in 06-01 SLEEP APNEA NOS--presumed by Dr. Lugo 06/08/2009 11/06/2012 Overview: Pt plans to check with insurance about coverage as of 06-01 Microscopic hematuria 10/03/20082014 Urethritis, unspecified 03/18/200806/2015 ILEALTIBIAL BAND FRICTION SYND 10/28/2007 10/31/2015 Hematuria 10/28/2007 10/31/2015 documented as of this encounter (statuses as of 07/16/2023) [facility] History of Past illness Narrative* Problem Noted Date Diagnosed Date Resolved Date Trochanteric bursitis of left hip 03/10/2017 05/25/2018 Sinus node dysfunction 05/20/201606/09 Overview: treated with pacemaker IFG (impaired fasting glucose) 10/31/2015 11/01/2016 Nonspecific abnormal finding s on radiological and examination of lung field 06/13/2009 10/31/2015 Overview: CT scan 06-01: right hilar LN unchanged from previous testing in 10-31 Obesity, unspecified 06/08/2009 015 Overview: TSH 1.99 in 06-01 SLEEP APNEA NOS--presumed by Dr. Lugo 06/08/2009 11/06/2012 Overview: Pt plans to check with insurance about coverage as of 06-01 Microscopic hematuria 10/03/20082014 Urethritis, unspecified 03/18/200806/2015 ILEALTIBIAL BAND FRICTION SYND 10/28/2007 10/31/2015 Hematuria 10/28/2007 10/31/2015 documented as of this encounter (statuses as of 07/18/2023) [facility] History of Past illness Narrative* Problem Noted Date Diagnosed Date Resolved Date Trochanteric bursitis of left hip 03/10/2017 05/25/2018 Sinus node dysfunction 05/20/201606/09 Overview: treated with pacemaker IFG (impaired fasting glucose) 10/31/2015 11/01/2016 Nonspecific abnormal finding s on radiological and examination of lung field 06/13/2009 10/31/2015 Overview: CT scan 06-01: right hilar LN unchanged from previous testing in 10-31 Obesity, unspecified 06/08/2009 015 Overview: TSH 1.99 in 06-01 SLEEP APNEA NOS--presumed by Dr. Lugo 06/08/2009 11/06/2012 Overview: Pt plans to check with insurance about coverage as of 06-01 Microscopic hematuria 10/03/20082014 Urethritis, unspecified 03/18/200806/2015 ILEALTIBIAL BAND FRICTION SYND 10/28/2007 10/31/2015 Hematuria 10/28/2007 10/31/2015 documented as of this encounter (statuses as of 08/30/2023) [facility] [place] [facility] Diagnosis Primary hypertension- Primary Unspecified essential hypertension Mixed hyperlipidemia IFG (impaired fasting glucose) Impaired fasting glucose Encounter for long-term current use of medication Essential hypertension Unspecified essential hypertension [facility] Diagnosis Allergic rhinitis, unspecified seasonality, unspecified trigger Essential hypertension Unspecified essential hypertension documented [facility] this [facility] [place] [facility] Diagnosis Essential hypertension- Primary Unspecified essential hypertension IFG (impaired fasting glucose) Impaired fasting glucose Mixed hyperlipidemia Elevated ferritin Other abnormal blood chemistry [facility] this [facility] [place] [facility] Diagnosis Essential hypertension- Primary Unspecified essential hypertension Encounter for immunization Need for other specified prophylactic vaccination against single bacterial disease Mixed hyperlipidemia IFG (impaired fasting glucose) Impaired fasting glucose Elevated ferritin Other abnormal blood chemistry Gastroesophageal reflux disease, unspecified whether esophagitis present Pulmonary arterial hypertension (HCC) Other chronic pulmonary heart diseases documented in this encounter [facility] Summary Purpose Family History No Family History Records FoundNo Family History Records Found Advance Directives No Advanced Directives Records FoundDocuments on File Type Date Recorded Patient Reheater Expl anation Advance Directive(s) 12/30/2018 9:13 AM Advance Directive(s) 12/06/2014 8:29 AM Latest Code Status on File Code Status Date Activated Date Inactivated Comments Full Code 03/05/2019 3:12 PM Latest Code Status on File Code Status Date Activated Date Inactivated Comments Full Code 03/05/2019 3:12 PM Hospital Course Note HNO ID: [id number] Author: Dario santiago ([facility]) Grater Service: Orthopaedic Surgery Author Type: Nurse Practitioner Type: Discharge Summary Filed: 03/05/2019 11:23 AM Note Text: DISCHARGE SUMMARY PATIENT NAME: Alicia Argueta ADMISSION DATE: 03/03/2019 DISCHARGE DATE: 03/04/2019 PATIENT DISCHARGE SUMMARY C O N F I D E N T I A L I N F O R M A T I O N The following is a brief overview of your hospitalization. Some of the information contained on this summary may be confidential. This information should be kept in your records and should be shared with your regular doctor. These instructions explain what you or your director of patient care need to do to continue your care at home or at another healthcare facility ? Please go over these instructions with your nurse and director of patient care. ? If you are not sure about something, please ask. Highest Readmission Risk Score: 6 The 30 day re (more content not included)... Additional Source Comments INFORMATION SOURCE (unrecogn ized section and content) DATE CREATED AUTHOR AUTHOR'S ARMEN ATION 09/03/2023 [facility] Source Comments (unrecognize d section and content) In the event this informatio n is protected by the Federal Confidentiality of Alcohol and Drug Abuse Patient Records regulations: The Federal rules restrict any use of the information to criminally investigate or prosecute any alcohol or drug abuse patient.[facility] the event this information is protected by the Federal Confidentiality of Alcohol and Drug Abuse Patient Records regulations: The Federal rules restrict any use of the information to criminally investigate or prosecute any alcohol or drug abuse patient.[facility] the event this information is protected by the Federal Confidentiality of Alcohol and Drug Abuse Patient Records regulations: The Federal rules restrict any use of the information to criminally investigate or prosecute any alcohol or drug abuse patient.[facility] the event this information is protected by the Federal Confidentiality of Alcohol and Drug Abuse Patient Records regulations: The Federal rules restrict any use of the information to criminally investigate or prosecute any alcohol or drug abuse patient.[facility] the event this information is protected by the Federal Confidentiality of Alcohol and Drug Abuse Patient Records regulations: The Federal rules restrict any use of the information to criminally investigate or prosecute any alcohol or drug abuse patient.[facility] the event this information is protected by the Federal Confidentiality of Alcohol and Drug Abuse Patient Records regulations: The Federal rules restrict any use of the information to criminally investigate or prosecute any alcohol or drug abuse patient.[facility] Care Teams (unrecognized sec tion and content) Spinning Machine Operator Relationship Specialty Start Date End Date Sagrario Blanchard MD [address] [place] [address] PCP - General Internal Medicine 11/13/10 Luly Harris MD [address] [place] [address] Referring Orthopedics 03/04/19 Luly Harris MD [address] [place] [address] Home Care Physician Orthopedics 03/04/19 Spinning Machine Operator Relationship Specialty Start Date End Date Sagrario Blanchard MD [address] [place] [address] PCP - General Internal Medicine 11/13/10 Luly Harris MD [address] [facility] [place] [address] Referring Orthopedics 03/04/19 Luly Harris MD [address] [place] [address] Home Care Provider Orthopedics 03/04/19 Spinning Machine Operator Relationship Specialty Start Date End Date Sagrario Blanchard MD [address] [place] [address] PCP - General Internal Medicine 11/13/10 Luly Harris MD [address] [place] [address] Referring Orthopedics 03/04/19 Luly Harris MD [address] [place] [address] Home Care Provider Orthopedics 03/04/19 Spinning Machine Operator Relationship Specialty Start Date End Date Sagrario Blanchard MD [address] [place] [address] PCP - General Internal Medicine 11/13/10 Luly Harris MD [address] [place] [address] Referring Orthopedics 03/04/19 Luly Harris MD [address] [place] [address] Home Care Provider Orthopedics 03/04/19 Spinning Machine Operator Relationship Specialty Start Date End Date Sagrario Blanchard MD [address] [place] [address] PCP - General Internal Medicine 11/13/10 Luly Harris MD [address] [place] [address] Referring Orthopedics 03/04/19 Luly Harris MD [address] [place], [place] [address] Home Care Provider Orthopedics 03/04/19 Reason for Visit (unrecogniz ed section and content) Reason Onset Date Comments Refill Request 12/12/2022 Reason Comments Established Patient Reason Comments Wellness FOR RECORDS PERTAINING TO PATIENTS WHO ARE OR HAVE BEEN ENROLLED IN A CHEMICAL DEPENDENCY/SUBSTANCEABUSE PROGRAM, SOME INFORMATION MAY BE OMITTED. This clinical summary was aggregated from multiple sources. Caution should be exercised in using it in the provision of clinical care. This summary normalizes information from multiple sources, and as a consequence, information in this document may materially change the coding, format and clinical context of patient data. In addition, data may be omitted in some cases. CLINICAL DECISIONS SHOULD BE BASED ON THE PRIMARY CLINICAL RECORDS. [employer] provides no warranty or guarantee of the accuracy or completeness of information in this document.
[2023-12-11 08:50] LABS: Vitamin B12 556 pg/mL (211-911)
[2023-12-11 08:59] LABS: AST(SGOT) 31 U/L (15-37); Alanine Aminotransfer ALT/SGPT 28 U/L (13-56); Albumin, Serum 2.8 g/dL (3.2-5.0); Alkaline Phosphatase 73 U/L (45-117); Bilirubin, Direct 0.13 mg/dL (0.00-0.30); Globulin 3.3 g/dL (2.2-4.2); Protein, Total 6.1 g/dL (6.4-8.2)
== END ==
LOC: OLS.WHLTSB 05:00
PROVIDERS: PCP Internal Medicine; Visit Provider Internal Medicine
DX: R53.83 Other fatigue (principal); M62.82 Rhabdomyolysis; N17.9 Acute kidney failure, unspecified; N30.00 Acute cystitis without hematuria
CPT/HCPCS: 36415; 80076; 82607

== ENCOUNTER → 2023-12-29 | Outpatient (REF) | payer MEDICARE, SELFPAY ==
--- OUTSIDE RECORDS SUMMARY | 2023-12-29 04:04 | XMS RPT_ITS | CCD ---
Author Name Unknown Address [address] [facility] [address] [place] [address] Organization [facility] Care Team Providers Care Tester Regulator Name Role Phone Cyndy Coleman Unavailable Unavailable Cyndy Coleman Unavailable Unavailable FLORENTIN Gordon, Carolina Hunt Unavailable Unavailable Alana LERMA, Tracey Arriaza Unavailable [phone] Maren Caraballo Unavailable Unavailable Poornima Capone Unavailable [...] adverse reactions (disorder) 7 Other: See Comments [facility] Other [place] Repository NEGATED: Highlighted row has been ruled out! (4 sources) Observed no known allergies at GE No Known Allergies 7 propensity to adverse reactions [facility] Work Phone: Medications Completed/Discontinued Medications Medication Drug Class(es) Dates Sig (Normalized) Sig (Original) ALBUTEROL SULFATE (20 sources) beta2-Adrenergic Agonist Start: 08-28-2016 End: 12-19-2016 take 2 puff(s) by inhalation every four hours as needed VENTOLIN HFA 108 (90 Base) MCG/ACT AERS 2 puffs INH q4 hours PRN SOB ALBUTEROL SULFATE [id number] David Venturader POST CLOSER-C Problems Active Problems Problem Classification Problem Date [...] disease (18 sources) Atherosclerotic heart disease of [place] coronary artery without angina pectoris; Translations: [Atherosclerotic heart disease of [place] coronary artery without angina pectoris] Onset: 06-07-2016 [...] (2 sources) Patient encounter status; Translations: [Other half-way (current) drug therapy] Episodic Other connective tissue [...] 13:59-0400 Body weight 72.12 kg Maren Duval VIDEO JOURNALIST.REEL FILM INSPECTOR Work Phone: [facility] 08-29-2023 13:59-0400 Diastolic blood pressure 84 mm[Hg] Maren Duval VIDEO JOURNALIST.REEL FILM INSPECTOR Work Phone: [facility] 08-29-2023 13:59-0400 Heart rate 78 /min Maren Duval VIDEO JOURNALIST.REEL FILM INSPECTOR Work Phone: [facility] 08-29-2023 13:59-0400 Respiratory rate 16 /min Maren Duval VIDEO JOURNALIST.REEL FILM INSPECTOR Work Phone: [facility] 08-29-2023 13:59-0400 Systolic blood pressure 138 mm[Hg] Maren Duval VIDEO JOURNALIST.REEL FILM INSPECTOR Work Phone: [facility] 06-11-2023 14:56-0400 Body temperature 98.6 [degF] Sagrario Blanchard MD Work Phone: [facility] 06-11-2023 14:56-0400 Body weight 71.67 kg Sagrario Blanchard MD Work Phone: [facility] 06-11-2023 14:56-0400 Diastolic blood pressure 62 mm[Hg] Sagrario Blanchard MD Work Phone: [facility] 06-11-2023 14:56-0400 Heart rate 80 /min Sagrario Blanchard MD Work Phone: [facility] 06-11-2023 14:56-0400 Respiratory rate 18 /min Sagrario Blanchard MD Work Phone: [facility] 06-11-2023 14:56-0400 SaO2% (BldA) [Mass fraction] 95 % Sagrario Blanchard MD Work Phone: [facility] 06-11-2023 14:56-0400 Systolic blood pressure 112 mm[Hg] Sagrario Blanchard MD Work Phone: [facility] 07-02-2017 06:19-0400 BMI (Body Mass Index) 24.89 kg/m2 Mago Smith [facility] Work Phone: 07-02-2017 06:19-0400 Body Temperature 97.4 [degF] Mago Smith [facility] [place] Work Phone: 07-02-2017 06:19-0400 BP Diastolic 80 mm[Hg] Mago Smith [facility] [place] Work Phone: 07-02-2017 06:19-0400 BP Systolic 140 mm[Hg] Mago Smith [facility] [place] Work Phone: 07-02-2017 06:19-0400 Height 162.56 cm Mago Luis [facility] [place] Work Phone: 07-02-2017 06:19-0400 Pulse (Heart Rate) 76 /min Mago Smith [facility] [place] Work Phone: 07-02-2017 06:19-0400 Respiratory Rate 18 /min Mago Smith [facility] Work Phone: 07-02-2017 06:19-0400 Weight 65.77 kg Mago Smith [facility] [place] Work Phone: 06-30-2017 11:49-0400 BMI (Body Mass [...] 24.54 kg/m2 Mago Smith [facility] Work Phone: 04-07-2017 14:26-0400 Body Temperature 97.5 [degF] Mago Smith [facility] Work Phone: 04-07-2017 14:26-0400 BP Diastolic 97 mm[Hg] Mago Smith [facility] Work Phone: 04-07-2017 14:26-0400 BP Systolic 162 mm[Hg] Mago Luis [facility] Work Phone: 04-07-2017 14:26-0400 Height 162.56 cm Mago Smith [facility] Work Phone: 04-07-2017 14:26-0400 Pulse (Heart Rate) 69 /min Mago Smith [facility] Work Phone: 04-07-2017 14:26-0400 Pulse Oximetry 97 % Mago Smith [facility] Work Phone: 04-07-2017 14:26-0400 Respiratory Rate 18 /min Mago Smith [facility] Work Phone: 04-07-2017 14:26-0400 Weight 64.86 kg Mago Smith [facility] Work Phone: 01-02-2017 14:16-0500 Body Temperature 97.52 [degF] Mago Smith [facility] Work Phone: 01-02-2017 14:16-0500 BSA (Body Surface Area) 1.73 m2 Mago Smith [facility] Work Phone: 01-02-2017 14:16-0500 Height 162.56 cm Mago Luis [facility] Work Phone: 01-02-2017 14:16-0500 Weight 67.73 kg Mago Smith [facility] Work Phone: Encounters Encounter Date Encounter Type Care Provider Facility Start: 08-29-2023 End: 08-30-2023 ambulatory MAREN DUVAL Facility:[facility] Start: 08-29-2023 End: 08-29-2023 Office outpatient visit 25 minutes Maren Duval APRN.REEL FILM INSPECTOR Work Phone: [facility] [place] Procedures Date Procedure Procedure Detail Performing Clinician Start: 08-29-2023 INFLUENZA VACCINE, P RSV FREE, AGE 65+ YR, HIGH DOSE, QUADRIVALENT (FLUZONE HIGH-DOSE) Maren Duval VIDEO JOURNALIST.REEL FILM INSPECTOR Work Phone: Start: 02-19-2019 Antibody screen LULY HARRIS Plan of Treatment Date Care Activity Detail Author Start: 06-11-2026 DIABETES SCREEN DIABETES SCREEN [facility] Start: 06-11-2026 Diabetes Screening Diabetes Screenin g [facility] Start: 04-26-2025 DIABETES SCREEN DIABETES SCREEN [facility] Start: 06-11-2024 COVID-19 VACCINE (3 - Moderna series) COVID-19 VACCINE (3 - Moderna series) [facility] Immunizations Immunization Date Immunization Notes Care Provider Ashly vargas 08-29-2023 influenza (HD-IIV4) vaccine, age 65+ yr, high dose, quadrivalent, PF (FLUZONE HIGH-DOSE) Maren Duval VIDEO JOURNALIST.REEL FILM INSPECTOR Work Phone: [facility] Work Phone: 12-09-2022 influenza, high-dose , quadrivalent vaccine (FLUZONE HIGH DOSE QUADRIVALENT) Sagrario Blanchard MD Work Phone: [facility] 09-28-2021 influenza, high-dose , quadrivalent vaccine (FLUZONE HIGH DOSE QUADRIVALENT) Sagrario Blanchard MD Work Phone: [facility] 08-16-2020 influenza, high-dose , quadrivalent vaccine (FLUZONE HIGH DOSE QUADRIVALENT) Sagrario Blanchard MD Work Phone: [facility] 12-15-2018 influenza, high dose seasonal, preservative-free Sagrario Blanchard MD Work Phone: [facility] 09-02-2017 influenza, high dose seasonal, preservative-free Sagrario Blanchard MD Work Phone: [facility] Work Phone: 10-09-2016 influenza, high dose seasonal, preservative-free Sagrario Blanchard MD Work Phone: [facility] 10-09-2016 influenza, high dose seasonal, preservative-free [facility] Work Phone: 10-09-2016 [id number] [facility] Work Phone: 05-01-2016 pneumococcal conjuga te vaccine, 13 valent Sagrario Blanchard MD Work Phone: [facility] 10-31-2015 influenza, high dose seasonal, preservative-free Sagrario Blanchard MD Work Phone: [facility] 10-24-2014 influenza, seasonal, injectable Sagrario Blanchard MD Work Phone: [facility] 11-08-2013 influenza virus vacc ine, unspecified formulation Sagrario Blanchard MD Work Phone: [facility] 10-11-2009 tetanus and diphther ia toxoids, adsorbed, preservative free, for adult use (2 Lf of tetanus toxoid and 2 Lf of diphtheria toxoid) Sagrario Blanchard MD Work Phone: [facility] 11-02-2008 influenza virus vacc ine, unspecified formulation Sagrario Blanchard MD Work Phone: [facility] 11-24-2007 pneumococcal polysaccharide vaccine, 23 valent Sagrario Blanchard MD Work Phone: [facility] Work Phone: Payers Date Payer Category Payer Medicare HU[employer]NA MEDICARE HU[employer]NA MEDICARE PPO [id number] 2021-Present [phone] [address] [place] [id number] PPO [id number] 2021 Medicare [id number] Social History Date Type Detail Facility Start: 01-10-2017 End: 08-29-2023 Tobacco smoking status NHIS Never smoked tobacco [facility] Start: 01-10-2017 End: 08-29-2023 Tobacco use and exposure Smokeless tobacco non-user [facility] Start: 09-28-2021 End: 08-29-2023 Alcohol intake Current non-drinker of alcohol (finding) [facility] Start: 1940 Sex Assigned At Not on file [facility] Start: 12-09-2022 End: 06-11-2023 History of Social function [facility] Work Phone: Start: 12-09-2022 End: 06-11-2023 Tobacco use panel [facility] Work Phone: Adult Depression Screening Assessment 0 [facility] Work Phone: Medical Equipment Procedure Code Equipment Code Equipment Origin al Text Equipment Identifier Dates Head V40 Lfit 22 mm +0mm Offset Taper Cocr Femoral Primary Hip - [id number] Start: 03-03-2019 Insert Mobile Be aring Hip Christian 38d X3 22.2mm Acetabular Anatomic - [id number] Start: 03-03-2019 Screw [employer]ident Secur-Fit Torx 6.5mm Titanium 25mm Bone Sterile Acetabular - [id number] Start: 03-03-2019 Clinical Notes 03-10-2017 to 08-29-2023 Maren Duval APRN.REEL FILM INSPECTOR - 08/29/2023 2:00 PM EDTTelephone Encounter - Amberly Wann OBJECTS CONSERVATOR - 07/18/2023 9:16 AM EDTTelephone Encounter - BirdieCarolina OBJECTS CONSERVATOR - 07/16/2023 10:42 AM EDT Note Date & Type Note Facility 08-29-2023 Note HNO ID: [id number] Author: Maren Duval APRN.REEL FILM INSPECTOR Service: ? Author Type: Nurse Specialist Type: [...] health. Note inquiring regarding assisted living facility, [facility]. Cardiology: [facility], last visit 03/2023. Follows up [...] drop Take by mouth once daily. Vitamin D69-Sbnry Acid 0.5-1 mg tab Take by mouth. [...] 3.70 - 1 (more content not included)... [facility] 08-29-2023 History of Presen t illness [...] health. Note inquiring regarding assisted living facility, [facility]. Cardiology: [facility], last visit 03/2023. Follows up [...] drop Take by mouth once daily. Vitamin X98-Cqrxe Acid 0.5-1 mg tab Take by mouth. [...] controlled, continue with lifestyle measures Maren Duval APRN.REEL FILM INSPECTOR Medical Decision Making: Problems: Moderate: 2+ stable chronic illnesses Risk: Moderate: Drug management Medical Decision Making Level: 4 - Moderate documented in this encounter [facility] 07-18-2023 Miscellaneous Notes Results below given [...] next follow up. documented in this encounter [facility] 06-11-2023 Note HNO ID: [id number] Author: Sagrario Blanchard MD Service: ? Author [...] drop Take by mouth once daily. Vitamin W46-Suirw Acid 0.5-1 mg tab Take by mouth. [...] of BP and lipids. Sagrario Blanchard MD [facility] 06-11-2023 History of Presen t illness [...] drop Take by mouth once daily. Vitamin J95-Vpxvd Acid 0.5-1 mg tab Take by mouth. [...] Sagrario Blanchard MD documented in this encounter [facility] 12-12-2022 Miscellaneous Notes Daughter notified apt [...] Kristin Kirk LPN documented in this encounter [facility] 12-09-2022 Note HNO ID: [id number] Author: Sagrario Blanchard MD Service: ? Author Type: Physician Type: Progress Notes Filed: 01/05/2023 10:58 PM Note Text: This note was created using Bitmenuriter. Subjective Alicia Argueta is a 82 year [...] drop Take by mouth once daily. Vitamin U65-Lvgai Acid 0.5-1 mg tab Take by mouth. [...] and treatment as indicated. Sagrario Blanchard MD [facility] 07-11-2022 Miscellaneous Notes Spoke with patient's daughter. Given message from provider's office. She verbalizes understanding. Saraih Galeano RN Message left for pt's daughter [...] come in prior) documented in this encounter [facility] documented as of this encounter (statuses as of 07/11/2022) [facility] History of Past illness Narrative* Problem [...] of this encounter (statuses as of 07/11/2022) [facility] History of Past illness Narrative* Problem [...] of this encounter (statuses as of 12/12/2022) [facility] History of Past illness Narrative* Problem [...] of this encounter (statuses as of 07/16/2023) [facility] History of Past illness Narrative* Problem [...] of this encounter (statuses as of 07/18/2023) [facility] of Past illness Narrative* Problem [...] of this encounter (statuses as of 08/30/2023) [facility] Primary hypertension- Primary Unspecified essential hypertension Mixed hyperlipidemia IFG (impaired fasting glucose) Impaired fasting glucose Encounter for long-term current use of medication Essential hypertension Unspecified essential hypertension [facility] Diagnosis Allergic rhinitis, unspecified seasonality, unspecified trigger Essential hypertension Unspecified essential hypertension [facility] Diagnosis Essential hypertension- Primary Unspecified essential hypertension IFG (impaired fasting glucose) Impaired fasting glucose Mixed hyperlipidemia Elevated ferritin Other abnormal blood chemistry [facility] Diagnosis Essential hypertension- Primary Unspecified essential hypertension Encounter for immunization Need for other specified prophylactic vaccination against single bacterial disease Mixed hyperlipidemia IFG (impaired fasting glucose) Impaired fasting glucose Elevated ferritin Other abnormal blood chemistry Gastroesophageal reflux disease, unspecified whether esophagitis present Pulmonary arterial hypertension (HCC) Other chronic pulmonary heart diseases documented in this encounter [facility] Summary Purpose Family History No Family History Records FoundNo Family History Records Found Advance Directives No Advanced Directives Records FoundDocuments on File Type Date Recorded Patient Business Analytics Analyst Expl anation Advance Directive(s) 12/30/2018 9:13 AM Advance Directive(s) 12/06/2014 8:29 AM Latest Code Status on File Code Status Date Activated Date Inactivated Comments Full Code 03/05/2019 3:12 PM Latest Code Status on File Code Status Date Activated Date Inactivated Comments Full Code 03/05/2019 3:12 PM Hospital Course Note HNO ID: [id number] Author: Dario santiago ([facility]) Grater Service: Orthopaedic Surgery Author Type: Nurse [...] These instructions explain what you or your healthcare administrator need to do to continue your care at home or at another healthcare facility ? Please go over these instructions with your nurse and healthcare administrator. ? If you are not sure about something, please ask. Highest Readmission Risk Score: 6 The 30 day re (more content not included)... Additional Source Comments INFORMATION SOURCE (unrecogn ized section and content) DATE CREATED AUTHOR AUTHOR'S ARMEN ATION 09/03/2023 [facility] Source Comments (unrecognize d section and content) In the event this informatio n is protected by the Federal Confidentiality of Alcohol and Drug Abuse Patient Records regulations: The Federal rules restrict any use of the information to criminally investigate or prosecute any alcohol or drug abuse patient.[facility] the event this information is protected by the Federal Confidentiality of Alcohol and Drug Abuse Patient Records regulations: The Federal rules restrict any use of the information to criminally investigate or prosecute any alcohol or drug abuse patient.[facility] the event this information is protected by the Federal Confidentiality of Alcohol and Drug Abuse Patient Records regulations: The Federal rules restrict any use of the information to criminally investigate or prosecute any alcohol or drug abuse patient.[facility] the event this information is protected by the Federal Confidentiality of Alcohol and Drug Abuse Patient Records regulations: The Federal rules restrict any use of the information to criminally investigate or prosecute any alcohol or drug abuse patient.[facility] the event this information is protected by the Federal Confidentiality of Alcohol and Drug Abuse Patient Records regulations: The Federal rules restrict any use of the information to criminally investigate or prosecute any alcohol or drug abuse patient.[facility] the event this information is protected by the Federal Confidentiality of Alcohol and Drug Abuse Patient Records regulations: The Federal rules restrict any use of the information to criminally investigate or prosecute any alcohol or drug abuse patient.[facility] Care Teams (unrecognized sec tion and content) Tester Regulator Relationship Specialty Start Date End Date Sagrario Blanchard MD [address] [place] [address] PCP - General Internal Medicine 11/13/10 Luly Harris MD [address] [place] [address] Referring Orthopedics 03/04/19 Luly Harris MD [address] [place] [address] Home Care Physician Orthopedics 03/04/19 Tester Regulator Relationship Specialty Start Date End Date Sagrario Blanchard MD [address] [place] [address] PCP - General Internal Medicine 11/13/10 Luly Harris MD [address] [place] [place] [address] Referring Orthopedics 03/04/19 Luly Harris MD [address] [place] [address] Home Care Provider Orthopedics 03/04/19 Tester Regulator Relationship Specialty Start Date End Date Sagrario Blanchard MD [address] [place] [address] PCP - General Internal Medicine 11/13/10 Luly Harris MD [address] [place] [address] Referring Orthopedics 03/04/19 Luly Harris MD [address] [place] [address] Home Care Provider Orthopedics 03/04/19 Tester Regulator Relationship Specialty Start Date End Date Sagrario Blanchard MD [address] [place] [address] PCP - General Internal Medicine 11/13/10 Luly Harris MD [address] [place] [address] Referring Orthopedics 03/04/19 Luly Harris MD [address] [place] [address] Home Care Provider Orthopedics 03/04/19 Tester Regulator Relationship Specialty Start Date End Date Sagrario Blanchard MD [address] [place] [address] PCP - General Internal Medicine 11/13/10 Luly Harris MD [address] [place] [address] Referring Orthopedics 03/04/19 Luly Harris MD [address] [place], [place] [address] Home Care Provider Orthopedics 03/04/19 Reason for [...] BE BASED ON THE PRIMARY CLINICAL RECORDS. [employer] provides no warranty or guarantee of the accuracy or completeness of information in this document.
[2023-12-29 07:02] LABS: Absolute Lymphocyte Count 0.74 X10^3/uL (0.83-4.51); Absolute Neutrophil Count 8.3 X10^3/uL (2.0-7.7); Basophil# 0.04 X10^3/uL; Basophil% 0.4 % (0-1); Eosinophil# 0.33 X10^3/uL; Eosinophils% 3.2 % (0-5); Hematocrit 43.9 % (37-47); Hemoglobin 13.6 g/dL (12.0-15.0); Lymphocyte # 0.74 X10^3/ul (0.83-4.51); Lymphocyte % 7.3 % (19-41); Mean Corpuscular Hgb 28.9 pg (27.0-32.0); Mean Corpuscular Volume 93.4 fL (81-99); Mean Platelet Vol. 10.4 fl (6.2-12.0); Monocyte# 0.72 X10^3/uL; Monocyte% 7.1 % (0-10); NRBC Flagged by Analyzer 0 % (0-5); Neutrophil # 8.31 X10^3/uL (2.7-7.7); Neutrophil % 81.5 % (47-70); Platelet Count 226 K/mm3 (150-450); RBC Distribution Width CV 13.6 % (11.6-14.6); RBC Distribution Width SD 47.5 fl (35.1-43.9); White Blood Count 10.2 K/mm3 (4.4-11.0)
[2023-12-29 07:13] LABS: Anion Gap 1 (5-15); BUN 17 mg/dL (7-18); BUN/Creat Ratio 28.5 RATIO (10-20); Calcium,Total 9.2 mg/dL (8.5-10.1); Chloride 98 mmol/L (98-107); EST Glomerular Filtration Rate 101 mL/min (>60); Est Glom Filt Rate - Afr Amer 123 mL/min (>60); Glucose 105 mg/dL (74-106); Potassium 4.2 mmol/L (3.5-5.1); Sodium Level 139 mmol/L (136-145)
[2023-12-30 10:02] LABS: Color, Urine Yellow (Yellow); Glucose, Dipstick Normal (Normal); Ketone-Dipstick 5 mg/dl (Negative); Leukocyte Esterase-Dipstick 500 /ul (Negative); Nitrite-Dipstick Positive (Negative); Occult Blood-Urine 150 /ul (Negative); Protein-Dipstick 30 mg/dl (Negative); Urine Bilirubin Dipstick Negative (Negative); Urine Clarity Sl. Cloudy (Clear); Urine Urobilinogen 1 mg/dl (Normal)
== END ==
LOC: OLS.WHLTSB 04:00
PROVIDERS: PCP Internal Medicine; Visit Provider Internal Medicine
DX: N39.0 Urinary tract infection, site not specified (principal); M62.82 Rhabdomyolysis; N17.9 Acute kidney failure, unspecified; M62.561 Muscle wasting and atrophy, not elsewhere classified, right lower leg
CPT/HCPCS: 36415; 80048; 81002; 85025; 87077; 87086; 87088; 87186

== ENCOUNTER → 2024-01-07 | Outpatient (REF) | payer MEDICARE, SELFPAY ==
[2024-01-07 09:07] LABS: Absolute Lymphocyte Count 0.69 X10^3/uL (0.83-4.51); Absolute Neutrophil Count 7.7 X10^3/uL (2.0-7.7); Basophil# 0.06 X10^3/uL; Basophil% 0.6 % (0-1); Eosinophil# 0.39 X10^3/uL; Hematocrit 45.7 % (37-47); Hemoglobin 13.9 g/dL (12.0-15.0); Lymphocyte # 0.69 X10^3/ul (0.83-4.51); Lymphocyte % 7.1 % (19-41); Mean Corp Hgb Conc 30.4 g/dL (32-36); Mean Corpuscular Volume 95.2 fL (81-99); Mean Platelet Vol. 10.8 fl (6.2-12.0); Monocyte# 0.78 X10^3/uL; NRBC Flagged by Analyzer 0 % (0-5); Neutrophil # 7.73 X10^3/uL (2.7-7.7); Neutrophil % 79.9 % (47-70); Platelet Count 183 K/mm3 (150-450); RBC Distribution Width CV 13.7 % (11.6-14.6); RBC Distribution Width SD 48.1 fl (35.1-43.9); White Blood Count 9.7 K/mm3 (4.4-11.0)
[2024-01-07 09:29] LABS: BNP,B-Type NATRIURETIC PEPTIDE 103.9 pg/mL (0-100)
== END ==
LOC: OLS.WHLTSB 07:18
PROVIDERS: PCP Internal Medicine; Visit Provider Internal Medicine
DX: J18.9 Pneumonia, unspecified organism (principal); R06.09 Other forms of dyspnea
CPT/HCPCS: 36415; 83880; 85025; 87449

== ENCOUNTER → 2024-01-29 | Outpatient (REF) | payer MEDICARE, SELFPAY ==
[2024-01-29 08:08] LABS: Absolute Lymphocyte Count 0.78 X10^3/uL (0.83-4.51); Absolute Neutrophil Count 7.8 X10^3/uL (2.0-7.7); Basophil# 0.06 X10^3/uL; Basophil% 0.6 % (0-1); Eosinophil# 0.45 X10^3/uL; Eosinophils% 4.5 % (0-5); Hematocrit 44.2 % (37-47); Hemoglobin 13.4 g/dL (12.0-15.0); Lymphocyte # 0.78 X10^3/ul (0.83-4.51); Lymphocyte % 7.9 % (19-41); Mean Corp Hgb Conc 30.3 g/dL (32-36); Mean Corpuscular Volume 95.7 fL (81-99); Mean Platelet Vol. 10.8 fl (6.2-12.0); Monocyte% 8.1 % (0-10); NRBC Flagged by Analyzer 0 % (0-5); Neutrophil # 7.76 X10^3/uL (2.7-7.7); Neutrophil % 78.3 % (47-70); Platelet Count 200 K/mm3 (150-450); RBC Distribution Width CV 14.1 % (11.6-14.6); RBC Distribution Width SD 49.9 fl (35.1-43.9); Red Blood Count 4.62 M/mm3 (4.2-5.4); White Blood Count 9.9 K/mm3 (4.4-11.0)
[2024-01-29 08:16] LABS: Anion Gap 1 (5-15); BUN 14 mg/dL (7-18); BUN/Creat Ratio 19.9 RATIO (10-20); Calcium,Total 9.4 mg/dL (8.5-10.1); Chloride 98 mmol/L (98-107); EST Glomerular Filtration Rate 84 mL/min (>60); Est Glom Filt Rate - Afr Amer 101 mL/min (>60); Glucose 129 mg/dL (74-106); Potassium 4.4 mmol/L (3.5-5.1); Sodium Level 142 mmol/L (136-145)
== END ==
LOC: OLS.WHLTSB 05:00
PROVIDERS: PCP Internal Medicine; Visit Provider Internal Medicine
DX: I10 Essential (primary) hypertension (principal); J18.9 Pneumonia, unspecified organism; N17.9 Acute kidney failure, unspecified; F03.90 Unspecified dementia, unspecified severity, without behavioral disturbance, psychotic disturbance, mood disturbance, and anxiety
CPT/HCPCS: 36415; 80048; 85025; 87449

== ENCOUNTER 2024-02-04 09:24 | Inpatient (IN) | payer MEDICARE, SELFPAY ==
[2024-02-04] VITALS (17 sets, daily range): BP systolic 116–145; BP diastolic 57–87; PULSE 68–98; RESP 12–36; TEMP 36.1–36.6; O2SAT 70–99; BMI 34.2
--- NOTE | 2024-02-04 09:38 | EKG12_ITS ---
Test Reason : SOB Blood Pressure : / mmHG Vent. Rate : 080 BPM Atrial Rate : 080 BPM P-R Int : 156 ms QRS Dur : 074 ms QT Int : 364 ms P-R-T Axes : 034 007 031 degrees QTc Int : 419 ms Sinus rhythm with Premature supraventricular complexes Otherwise normal ECG Confirmed by JACQUE VAZQUEZ, LATHA ([id number]), avid editor ADAM KEEANN ([id number]) on 02/05/2024 6:24:27 AM Referred By: ANGEL/OWEN Confirmed By:LATHA SANTILLAN MD
--- NOTE | 2024-02-04 09:38 | RAD_ITS ---
STUDY: X-RAY CHEST REASON FOR EXAM: Female, 83 years old. Dyspnea TECHNIQUE: Single AP portable view of the chest. COMPARISON: Comparison is made with prior study dated September 08, 2023. FINDINGS: Limited inspiratory effort. EKG electrodes are seen. There is evidence of vascular congestion and mild CHF. Blunting of both cost phrenic angles. Mild increased markings at the left lung base suggestive of left basilar infiltrate and/or atelectasis. Normal size heart. A left-sided dual-chamber pacemaker is present. Normal mediastinum and karime. Normal visualized pulmonary arteries. Normal visualized aortic arch and descending thoracic aorta. There are diffuse degenerative changes of the visualized thoracic spine. Normal visualized ribs, clavicles, and shoulders. There is no demonstrated abnormality of the visualized soft tissue structures of the upper abdomen. RAD/Chest 1 View (Portable) IMPRESSION: Vascular congestion mild CHF with blunting of both costophrenic angles and increased markings at the left lung base suggest mild atelectasis. Electronically Signed: Jordan Gu MD at 10:17 EDT ,
--- NOTE | 2024-02-04 09:39 | EDS_ITS ---
HPI History of Present Illness Chief Complaint: Shortness of Breath Detail of Chief Complaint: Shortness of breath Informant: patient and EMS Narrative Narrative: Patient presents via EMS from extended-care facility with complaint of shortness of breath. Unclear how long patient's short of breath as she is got a history of dementia and not able to tell me. She does describe a cough. Per EMS her O2 sat was 87% on room air this morning. In the emergency department she is 73% on room air. She did receive a aerosol at the group home and then EMS gave her breathing treatment as well which seemed to improve her O2 saturations. Patient denies any chest pain. [facility] Medical History (Updated 02/04/24 @ 10:[address] Noam Esteves, DO) Allergic rhinitis COPD (chronic obstructive pulmonary disease) LEAL (dyspnea on exertion) Dyspnea Essential hypertension GERD (gastroesophageal reflux disease) JONATAN (obstructive sleep apnea) Secondary pulmonary arterial hypertension Sick sinus syndrome Syncope Home Medications cyanocobalamin (vitamin B-12) 250 mcg tablet 250 mcg PO QDAY 03/23/18 [History Last Taken Unknown] lisinopril 10 mg tablet 10 mg PO DAILY #90 tabs 12/24/19 [Rx Last Taken Unknown] metoprolol succinate 25 mg tablet,extended release 24 hr 25 mg PO DAILY #90 tabs 08/25/23 [Rx Last Taken Unknown] acetaminophen 325 mg tablet 650 mg (2 x 325 mg) PO Q6H PRN PRN Pain 1-10 Or Fever>100.7 #0 tabs 09/10/23 [Rx Last Taken Unknown] cephalexin 500 mg capsule 500 mg PO TID #15 caps 09/10/23 [Rx Last Taken Unknown] Allergy/AdvReac Type Severity Reaction Status Date / Time No Known Allergies Allergy Verified 02/04/24 09:35 Family History Mother pacemaker Father pacemaker Surgical History History of left heart catheterization (~05/13/16) History of tonsillectomy Presence of cardiac pacemaker (~04/2016) Social History household members: none Smoking Status: Never smoker second hand exposure: No alcohol intake: never substance use type: does not use caffeine: No what type of physical activity do you participate in: other frequency: 3-4 times per week ROS ROS ED Review of Systems ROS Unobtainable: due to mental condition and other Constitutional Constitutional ED: Reports lethargy; Denies chills, fever(s), sweats or weight loss Eyes Eyes: Denies blurry vision, change in vision or diplopia ENT ENT ED: Denies rhinorrhea or sore throat Cardiovascular Cardiovascular: Denies chest pain, orthopnea or racing heartbeat Respiratory/Chest Respiratory/Chest: Reports cough, dyspnea and dyspnea on exertion; Denies orthopnea or sputum Gastrointestinal Gastrointestinal: Denies abdominal pain, diarrhea, nausea or vomiting Genitourinary Genitourinary ED: Denies dysuria, hematuria or urinary frequency Musculoskeletal Musculoskeletal: Denies arthralgias, back pain, myalgias or neck pain Integumentary Denies abscess, Abrasions or rash Neurologic Neurologic: Denies headache(s) or weakness Psychiatric Psychiatric: Denies anxiety, depression or suicidal thoughts Endocrine Endocrinology: Denies polydipsia, polyphagia or polyuria Hematologic/Lymphatic Hematologic/Lymphatic: Denies easy bleeding, easy bruising or lymphadenopathy Allergic/Immunologic Allergic/Immunologic ED: Denies mouth swelling, tongue swelling or urticaria EXAM Physical Exam Const Vital Signs: 02/04/24 09:26 02/04/24 09:32 02/04/24 09:34 Temperature 97.6 F L 97.6 F L Temperature Source Temporal Temporal Pulse Rate 82 82 Respiratory Rate 26 H 26 H Respiratory Effort Respiratory Depth Respiratory Pattern Blood Pressure 137/76 H 137/76 H Blood Pressure Mean 96 96 Pulse Ox 73 73 96 Oxygen Delivery Method Room Air Room Air High Flow Oxygen Flow Rate (L/min) 6 02/04/24 09:43 02/04/24 10:25 02/04/24 10:25 Temperature Temperature Source Pulse Rate 80 Respiratory Rate 18 Respiratory Effort Short of Breath Respiratory Depth Shallow Respiratory Pattern Tachypnea Blood Pressure 132/82 H Blood Pressure Mean 98 Pulse Ox 99 Oxygen Delivery Method Room Air Nasal Cannula Oxygen Flow Rate (L/min) 2 Positive well nourished and well developed General Appearance ED: well developed and NAD HEENT Reports TM's clear and moist mucous membranes normocephalic and atraumatic; Negative for trauma or tenderness Tympanic Membrane ED: Yes TM's clear Eyes PERRL and EOMs intact bilaterally General Eye ED: Negative for pale conjunctiva or scleral icterus Neck no lymphadenopathy, supple and no JVD General: Negative for tenderness Chest Wall inspection of chest normal and palpation of chest normal Chest: Negative for tenderness Resp normal respiratory effort and No clear to auscultation bilaterally Resp Narrative: Mild tachypnea with shallow respirations. Few Rales in the bases. Few faint expiratory wheezes bilaterally. No accessory muscle use or retractions noted. Effort and Inspection: Negative for respiratory distress or pain with movement Auscultation: Negative for rhonchi, wheezes or diminished lung sounds Cardio regular rate, regular rhythm, S1 normal heart sound, S2 normal heart sound and no murmurs Peripheral Pulses: pulses 2+ throughout GI normal to inspection, nondistended, normoactive bowel sounds, soft to palpation, non-tender, non-distended and no masses Back/Spine no CVA tenderness and no thoracic nor lumbar tenderness Extremity normal to inspection Extremity Narrative: Patient with +2 edema both lower extremities. General Extremety ED: Yes edema General Extremity: edema Neuro oriented x3, CN's II-XII intact bilaterally, no sensory deficits noted and gait normal Sensorium / Orientation: awake, alert, oriented to person, oriented to place and oriented to time Motor Exam: strength 5/5 throughout and strength abnormal Psych mental status grossly normal Skin no rashes or lesions noted and no wounds MDM MDM MDM Narrative Medical decision making narrative: Patient presents with dyspnea and hypoxemia from group home and really cannot get much history from the patient. Clinically I suspected CHF as she has Rales in the bases and diffuse edema both lower extremities. CBC with differential white count of 11.2 with hemoglobin 12.8 and platelet count of 195. Chemistries unremarkable. CO2 greater than 45. Lactate was elevated at 2.3. Troponin was minimally elevated at 66 and BNP was 320. Patient was ordered Lasix 40 mg IV. Chest x-ray obtained showed pulmonary congestion and signs of CHF. Will discuss case with hospitalist to evaluate patient for admission Lab Data Attestation: I reviewed the patient's lab results. Labs: Laboratory Results - last 24 hr 02/04/24 09:50 WBC 11.2 H RBC 4.39 Hgb 12.8 Hct 42.6 MCV 97.0 MCH 29.2 MCHC 30.0 L RDW Std Deviation 50.3 H RDW Coeff of Shilpa 14.0 Plt Count 195 MPV 9.9 Immature Gran % (Auto) 0.600 Neut % (Auto) 87.6 H Lymph % (Auto) 5.3 L [place] % (Auto) 5.6 Eos % (Auto) 0.5 Baso % (Auto) 0.4 Absolute Neuts (auto) 9.8 H Absolute Lymphs (auto) 0.59 L Nucleated RBC % 0 Sodium 138 Potassium 3.8 Chloride 90 L Carbon Dioxide > 45.0 H* Anion Gap TNP BUN 19 H Creatinine 0.76 Estim Creat Clear Calc 56.05 Est GFR (MDRD) Af Amer 93 Est GFR (MDRD) Non-Af 77 BUN/Creatinine Ratio 25.1 H Glucose 176 H Lactic Acid 2.3 H* Calcium 8.8 Troponin I High Sens 66 H B-Natriuretic Peptide 319.7 H Radiography Diagnostic Testing: Clinical Impression(s) from Imaging Studies Chest X-Ray 02/04/24 09:38 IMPRESSION: Vascular congestion mild CHF with blunting of both costophrenic angles and increased markings at the left lung base suggest mild atelectasis. Electronically Signed: Jordan Gu MD at 10:17 EDT , 1 view chest x-ray obtained interpreted as increased vascular markings suspicious for CHF with suspected left small effusion. Radiology felt there was CHF with increased markings left lung base suggestive of mild atelectasis. EKG Initial EKG: Attestation: I personally reviewed and interpreted this EKG as follows: Comments: Sinus rhythm with rate of 80 bpm with PACs, no acute ST segment changes Discharge Plan Triage Chief Complaint: Shortness of Breath ED Provider: Noam Esteves Dx/Rx/DC Orders Clinical Impression: CHF (congestive heart failure), Hypoxemia, Dyspnea, Respiratory failure Prescriptions: No Action cyanocobalamin (vit B-12) 250 mcg tablet 250 mcg tablet 250 mcg PO QDAY lisinopril 10 mg tablet 10 mg PO DAILY Qty: 90 3RF metoprolol succinate 25 mg tablet extended release 24 hr 25 mg PO DAILY Qty: 90 3RF acetaminophen 325 mg Tablet 650 mg PO Q6H PRN PRN (Reason: Pain 1-10 Or Fever>100.7) Qty: 0 0RF cephalexin 500 mg capsule 500 mg PO TID Qty: 15 0RF Rx Instructions: start 09/11/23-stop after 15 doses Primary Care Provider: Vivi Blanchard Referrals: Vivi Blanchard MD [Primary Care Provider] - Disposition Disposition: Acute Care Hospital [facility]
[2024-02-04 10:09] LABS: Absolute Lymphocyte Count 0.59 X10^3/uL (0.83-4.51); Absolute Neutrophil Count 9.8 X10^3/uL (2.0-7.7); Basophil# 0.05 X10^3/uL; Basophil% 0.4 % (0-1); Eosinophil# 0.06 X10^3/uL; Eosinophils% 0.5 % (0-5); Hematocrit 42.6 % (37-47); Hemoglobin 12.8 g/dL (12.0-15.0); Lymphocyte # 0.59 X10^3/ul (0.83-4.51); Lymphocyte % 5.3 % (19-41); Mean Corpuscular Hgb 29.2 pg (27.0-32.0); Mean Platelet Vol. 9.9 fl (6.2-12.0); Monocyte# 0.63 X10^3/uL; Monocyte% 5.6 % (0-10); NRBC Flagged by Analyzer 0 % (0-5); Neutrophil # 9.81 X10^3/uL (2.7-7.7); Neutrophil % 87.6 % (47-70); POSITIVE DIFFERENTIAL YES; Platelet Count 195 K/mm3 (150-450); RBC Distribution Width SD 50.3 fl (35.1-43.9); Red Blood Count 4.39 M/mm3 (4.2-5.4); White Blood Count 11.2 K/mm3 (4.4-11.0)
[2024-02-04 10:31] LABS: BNP,B-Type NATRIURETIC PEPTIDE 319.7 pg/mL (0-100)
--- NOTE | 2024-02-04 10:31 | ED.RN ---
LAB CALLED CRITICAL LACTIC 2.3 AN D CO2 GREATER THEN 45. DR GARCIA
[2024-02-04 10:32] LABS: BUN 19 mg/dL (7-18); BUN/Creat Ratio 25.1 RATIO (10-20); Calcium,Total 8.8 mg/dL (8.5-10.1); Carbon Dioxide > 45.0 mmol/L (21.0-32.0); Chloride 90 mmol/L (98-107); Creatinine, Serum 0.76 mg/dL (0.55-1.02); EST Glomerular Filtration Rate 77 mL/min (>60); Est Glom Filt Rate - Afr Amer 93 mL/min (>60); Estimated Creatinine Clearance 56.05 ml/min; Glucose 176 mg/dL (74-106); Lactic Acid 2.3 mmol/L (0.4-1.9); Potassium 3.8 mmol/L (3.5-5.1); Sodium Level 138 mmol/L (136-145); Troponin-I HS 66 pg/mL (3.0-54.0)
[2024-02-04] MEDS: MethylPREDNISolone 125 MG/2 ML Vial IV (10:33)
--- NOTE | 2024-02-04 10:51 | PCM.HP.STD ---
HPI - General General Date of Admission: 02/04/24 Date of Service: 02/04/24 Chief Complaint: shortness of breath HPI Narrative TINO SONI, is a 83 F with a PMH as outlined who presents from her SNF via the ED on 02/04/2024 with a complaint of shortness of breath. She wasnt able to give much of a history due to dementia. She was found to be saturating at 87% on room air. She was placed on oxygen and given a breathing treatment and brought to the ED. Unable to do review of systems otherwise due to her severe dementia. Vitals in the ED were BP of 132/82, MS of 80, RR of 18 and oxygen sats of 99%on 2L of oxygen. CBC was significant for hb of 12.8, wbc of 11.2 and platelets of 195. Chemistry showed sodium of 132, potassium of 3.8, bicarb of >45 and Cr of 0.76. BNP was 319.7, and initial troponin was 66. lactic acid was 2.3. CXR showed vascular congestion with mild CHF and blunting of both costophrenic angles with increased markings at the left lung base suggesting mild atelectasis. I did request that an ABG should be ordered. She is being admitted to be managed for acute on chronic hypoxic and hypercapnic respiratory failure due to acute on chronic heart failure. Patient's daughter was by her bedside during review. Daughter could not give much of the history as she said [facility] and she was just told that she was short of breath there but did not have any other information. [facility] Medical History Allergic rhinitis COPD (chronic obstructive pulmonary disease) LEAL (dyspnea on exertion) Dyspnea Essential hypertension GERD (gastroesophageal reflux disease) JONATAN (obstructive sleep apnea) Secondary pulmonary arterial hypertension Sick sinus syndrome Syncope Home Medications lisinopril 10 mg tablet 10 mg PO DAILY #90 tabs 12/24/19 [Rx Last Taken Unknown] metoprolol succinate 25 mg tablet,extended release 24 hr 25 mg PO DAILY #90 tabs 08/25/23 [Rx Last Taken Unknown] acetaminophen 325 mg tablet 650 mg PO Q6H PRN Pain 1-10 Or Fever>100.7 02/04/24 [History Last Taken Unknown] albuterol sulfate 2.5 mg/0.5 mL solution for nebulization 2.5 mg inhalation Q4H PRN shortness of breath or wheezing 02/04/24 [History Last Taken Unknown] cyanocobalamin (vitamin B-12) 250 mcg tablet 500 mcg PO DAILY 02/04/24 [History Last Taken Unknown] food supplemt, lactose-reduced 0.06 gram-1 kcal/mL oral liquid (Boost High Protein) 120 ml PO BID 02/04/24 [History Last Taken Unknown] furosemide 20 mg tablet 20 mg PO DAILY 02/04/24 [History Last Taken Unknown] hydrocortisone 2.5 % topical cream 1 applic topical BID DERMATITIS 02/04/24 [History Last Taken Unknown] polyethylene glycol 400 0.25 % eye drops 1 drp ophthalmic (eye) Q6H PRN DRY EYE 02/04/24 [History Last Taken Unknown] Allergy/AdvReac Type Severity Reaction Status Date / Time No Known Allergies Allergy Verified 02/04/24 09:35 Family History Mother pacemaker Father pacemaker Surgical History History of left heart catheterization (~05/13/16) History of tonsillectomy Presence of cardiac pacemaker (~04/2016) Social History household members: none Smoking Status: Never smoker second hand exposure: No alcohol intake: never substance use type: does not use caffeine: No what type of physical activity do you participate in: other frequency: 3-4 times per week ROS Review of Systems ROS Unobtainable: due to encephalopathy Vital Signs Vital Signs Vital Signs: 02/04/24 09:26 02/04/24 09:32 02/04/24 09:34 Temperature 97.6 F L 97.6 F L Temperature Source Temporal Temporal Pulse Rate 82 82 Respiratory Rate 26 H 26 H Respiratory Effort Respiratory Depth Respiratory Pattern Blood Pressure 137/76 H 137/76 H Blood Pressure Mean 96 96 Pulse Ox 73 73 96 Oxygen Delivery Method Room Air Room Air High Flow Oxygen Flow Rate (L/min) 6 02/04/24 09:43 02/04/24 10:25 02/04/24 10:25 Temperature Temperature Source Pulse Rate 80 Respiratory Rate 18 Respiratory Effort Short of Breath Respiratory Depth Shallow Respiratory Pattern Tachypnea Blood Pressure 132/82 H Blood Pressure Mean 98 Pulse Ox 99 Oxygen Delivery Method Room Air Nasal Cannula Oxygen Flow Rate (L/min) 2 Weight Weight: 199 lb 11.821 oz Body Mass Index (BMI) 34.2 Physical Exam Const alert Orientation / Consciousness: confused and lethargic HEENT normocephalic and head/scalp atraumatic Mouth: dry mucous membranes Eyes PERRL and EOMs intact bilaterally Neck no lymphadenopathy and supple Lymph Lymphatic: no lymphadenopathy noted and no lymphedema noted Resp Resp Narrative: moderately diminished breath sounds bibasally, no wheezes or crackles. On 6L of oxygen. Cardio regular rate, regular rhythm, S1 normal heart sound, S2 normal heart sound and no murmurs GI normal to inspection, nondistended, normoactive bowel sounds, soft to palpation, non-tender and non-distended Extremity normal capillary refill, no clubbing, cyanosis or edema and no calf tenderness General Extremity: no tenderness to palpation of joints or extremities Skin General Skin Exam: no breakdown Neuro CN's II-XII intact bilaterally and no focal motor deficits Motor Exam: general weakness Psych Psych Narrative: confused, lethargic Results Lab / Micro Data 02/04/24 09:50 02/04/24 09:50 Labs: Laboratory Results - last 24 hr 02/04/24 09:50: WBC 11.2 H, RBC 4.39, Hgb 12.8, Hct 42.6, MCV 97.0, MCH 29.2, MCHC 30.0 L, RDW Std Deviation 50.3 H, RDW Coeff of Shilpa 14.0, Plt Count 195, MPV 9.9, Immature Gran % (Auto) 0.600, Neut % (Auto) 87.6 H, Lymph % (Auto) 5.3 L, [place] % (Auto) 5.6, Eos % (Auto) 0.5, Baso % (Auto) 0.4, Absolute Neuts (auto) 9.8 H, Absolute Lymphs (auto) 0.59 L, Nucleated RBC % 0, Sodium 138, Potassium 3.8, Chloride 90 L, Carbon Dioxide > 45.0 H*, Anion Gap TNP, BUN 19 H, Creatinine 0.76, Estim Creat Clear Calc 56.05, Est GFR (MDRD) Af Amer 93, Est GFR (MDRD) Non-Af 77, BUN/Creatinine Ratio 25.1 H, Glucose 176 H, Lactic Acid 2.3 H*, Calcium 8.8, Troponin I High Sens 66 H, B-Natriuretic Peptide 319.7 H Imaging Radiology Impression Chest X-Ray 02/04/24 09:38 IMPRESSION: Vascular congestion mild CHF with blunting of both costophrenic angles and increased markings at the left lung base suggest mild atelectasis. Electronically Signed: Jordan Gu MD at 10:17 EDT , Assessment & Plan Assessment/Plan (1) Respiratory failure: PLAN: Plan # Acute on chronic hypoxic and hypercapnic respiratory failure due to acute exacerbation of heart failure and COPD exacerbation [facility] with a complaint of shortness of breath. BNP is elevated. Chest x-ray shows evidence of fluid overload. Bicarb on BMP was more than 45 so ABG was checked which showed pCO2 of 91. Patient will therefore be placed on BiPAP. Diuresed with IV Lasix 40 mg twice daily. Monitor intake and output. Fluid restriction to 15 cc daily. Wean off BiPAP as tolerated once ABG comes down. Breathing treatment with Bronchodilators. place on IV solumedrol #Sick sinus syndrome: s/p pacemaker on 04/2016. #Hypertension: on lisinopril and metoprolol DVT prophylaxis: lovenox CODE STATUS:DNRCCA Patient has paperwork from prison which shows that she is DNR CCA no intubation. I clarified this with her daughter who stated that her mother had always wanted to be DNR CCA and did not want CPR or intubation. Charges/Coding Visit Charges Inpatient E&M: 72958 Init Hosp L3
--- NOTE | 2024-02-04 10:53 | NURSING ---
DR ELEUTERIO WEAVER
[2024-02-04] MEDS: Furosemide 40 MG/4 ML Vial IV ×2 (10:54→17:49)
[2024-02-04 11:16] LABS: Allen Test Positive; Base Excess 20 mmol/L (-2 to +2); Bicarbonate 46.6 mmol/L (22-26); Blood Gas Specimen Type ART; Mode Not entered; O2 Delivery Device Cannula; PO2 61 mmHG (75-100); SITE L Radial; SO2 87 % (95-99); Total Carbon Dioxide 49 mmol/L; pCO2 91.2 mmHg (35-45); pH 7.32 (7.35-7.45)
--- NOTE | 2024-02-04 11:19 | CPS ---
Critical abg results handed to Dr. Esteves
--- NOTE | 2024-02-04 11:38 | NURSING ---
PCU ELEUTERIO CHF, HYPOXEMIA, RESP FAILURE
--- NOTE | 2024-02-04 12:31 | CPS ---
Callled over to ED by RN, patient had removed BiPAP mask and sats were in the 70's. Patient placed back on High Flow nasal cannula at 7lpm to get sats back to 90. Will wean O2 as tolerated.
--- NOTE | 2024-02-04 12:33 | ED.RN ---
PT REMOVED BI-PAP,OXYGEN,ALL STICKERS. PT YELLING AT STAFF. PULSE OX 68 PERCENT. RESPIRATORY IN ROOM WITH RN. ATTEMPT TO CONVINCE PT TO PUT OXYGEN BACK ON. PT PLACED ON 7 LITERS HIGH FLOW AT 91
[2024-02-04 13:56] LABS: Reflex Lactate? Y
[2024-02-04 15:00] LABS: Troponin-I HS 62 pg/mL (3.0-54.0)
[2024-02-04 15:00] LABS: Lactic Acid 1.2 mmol/L (0.4-1.9)
--- NOTE | 2024-02-04 16:45 | CPS ---
Placed back on bipap with some difficulty. Very restless, combative. Kept trying to pull at mask. Stayed in room until patient calmed down. Resting comfortably. Attempted ABG, became very agitated, swinging at this therapist. Adjusted bipap settings until patient was comfortable and she was doing well on bipap. Will attempt ABG later.
[2024-02-04 16:56] LABS: Troponin-I HS 61 pg/mL (3.0-54.0)
[2024-02-04] MEDS: 0.9% Saline Lock 10 ML Syringe IV (17:50)
[2024-02-05] VITALS (8 sets, daily range): BP systolic 104–149; BP diastolic 64–81; PULSE 74–85; RESP 18–20; TEMP 36.3–36.7; O2SAT 94–97
[2024-02-05] MEDS: Ensure Plus High Protein 120 ML LIQUID PO ×2 (08:06→17:11)
[2024-02-05 08:14] LABS: Absolute Lymphocyte Count 0.63 X10^3/uL (0.83-4.51); Absolute Neutrophil Count 8.5 X10^3/uL (2.0-7.7); Basophil# 0.03 X10^3/uL; Basophil% 0.3 % (0-1); Eosinophil# 0.01 X10^3/uL; Eosinophils% 0.1 % (0-5); Hematocrit 41.9 % (37-47); Hemoglobin 13.1 g/dL (12.0-15.0); Lymphocyte # 0.63 X10^3/ul (0.83-4.51); Lymphocyte % 6.2 % (19-41); Mean Corp Hgb Conc 31.3 g/dL (32-36); Mean Corpuscular Volume 92.9 fL (81-99); Mean Platelet Vol. 10.2 fl (6.2-12.0); Monocyte# 1.02 X10^3/uL; NRBC Flagged by Analyzer 0 % (0-5); Neutrophil # 8.45 X10^3/uL (2.7-7.7); Neutrophil % 82.6 % (47-70); Platelet Count 196 K/mm3 (150-450); RBC Distribution Width CV 13.3 % (11.6-14.6); RBC Distribution Width SD 45.5 fl (35.1-43.9); Red Blood Count 4.51 M/mm3 (4.2-5.4); White Blood Count 10.2 K/mm3 (4.4-11.0)
[2024-02-05 08:53] LABS: Allen Test Positive; Base Excess 24 mmol/L (-2 to +2); Bicarbonate 47.8 mmol/L (22-26); Blood Gas Specimen Type ART; Mode Not entered; O2 Delivery Device Cannula; PO2 65 mmHG (75-100); SITE R Radial; SO2 92 % (95-99); Total Carbon Dioxide 50 mmol/L; pCO2 69.4 mmHg (35-45); pH 7.45 (7.35-7.45)
[2024-02-05 08:55] LABS: BUN 24 mg/dL (7-18); BUN/Creat Ratio 33.4 RATIO (10-20); Calcium,Total 8.9 mg/dL (8.5-10.1); Carbon Dioxide > 45.0 mmol/L (21.0-32.0); Chloride 89 mmol/L (98-107); Creatinine, Serum 0.72 mg/dL (0.55-1.02); EST Glomerular Filtration Rate 82 mL/min (>60); Est Glom Filt Rate - Afr Amer 99 mL/min (>60); Estimated Creatinine Clearance 52.45 ml/min; Glucose 119 mg/dL (74-106); Potassium 3.7 mmol/L (3.5-5.1); Sodium Level 139 mmol/L (136-145)
--- NOTE | 2024-02-05 10:19 | CASEMGMT ---
Patient is from [facility]. ALVIN called patient's daughter Melinda and confirmed plan is for patient to return to [facility] at d/c. ALVIN asked Zehra to send updates to [facility]. Plan: d/c back to [facility] when medically ready. Sofie Vora EVALUATION MANAGER REEMA
--- NOTE | 2024-02-05 10:42 | CASEMGMT ---
Discharge Planning Updates sent to [facility] [place]. Asked if precert will be needed to return. Zehra Salgado, Discharge Planning Asst.
[2024-02-05] MEDS: Furosemide 40 MG/4 ML Vial IV ×2 (10:49→17:22)
[2024-02-05] MEDS: Enoxaparin 40 MG/0.4 ML Syringe SC (10:49)
[2024-02-05] MEDS: Lisinopril 10 MG Tablet PO (10:50)
[2024-02-05] MEDS: Metoprolol(XL)Succ 25 MG Tablet PO (10:50)
[2024-02-05] MEDS: Cyanocobalamin 500 MCG Tablet PO (10:50)
--- NOTE | 2024-02-05 11:43 | PN_ITS ---
Subjective Subjective Patient seen and examined. She was more alert and communicative today. She had no active complaints and felt her breathing had improved. REview of systems is othewrwise negative. She is on 4L of oxygen by nasal canula. She was on BIPAP yesterday. Objective Data Objective Data Vital Signs: Vital Signs Temp Pulse Resp BP Pulse Ox O2 Del Method O2 Flow Rate 97.8 F 85 18 123/64 H 94 Nasal Cannula 4 02/05/24 10:39 02/05/24 10:50 02/05/24 10:39 02/05/24 10:39 02/05/24 10:39 02/05/24 10:39 02/05/24 10:39 FiO2 30 02/04/24 23:42 Oxygen Flow Rate (L/min) 4 Oxygen Delivery Method Nasal Cannula Weight: 175 lb 4.28 oz Body Mass Index (BMI) 30.0 Intake & Output: Intake and Output for Last 24 Hours 02/03/24 02/04/24 02/05/24 23:59 23:59 23:59 Output Total 800 / 800 500 / 500 Balance -800 / -800 -500 / -500 Lab / Micro Data 02/05/24 07:55 02/05/24 07:55 Labs: Laboratory Results - last 24 hr 02/04/24 14:20: Lactic Acid 1.2 02/04/24 14:25: Troponin I High Sens 62 H 02/04/24 16:04: Troponin I High Sens 61 H 02/05/24 07:55: WBC 10.2, RBC 4.51, Hgb 13.1, Hct 41.9, MCV 92.9, MCH 29.0, MCHC 31.3 L, RDW Std Deviation 45.5 H, RDW Coeff of Shilpa 13.3, Plt Count 196, MPV 10.2, Immature Gran % (Auto) 0.800, Neut % (Auto) 82.6 H, Lymph % (Auto) 6.2 L, [place] % (Auto) 10.0, Eos % (Auto) 0.1, Baso % (Auto) 0.3, Absolute Neuts (auto) 8.5 H, Absolute Lymphs (auto) 0.63 L, Nucleated RBC % 0, Sodium 139, Potassium 3.7, Chloride 89 L, Carbon Dioxide > 45.0 H*, Anion Gap TNP, BUN 24 H, Creatinine 0.72, Estim Creat Clear Calc 52.45, Est GFR (MDRD) Af Amer 99, Est GFR (MDRD) Non-Af 82, BUN/Creatinine Ratio 33.4 H, Glucose 119 H, Calcium 8.9 Micro: Microbiology 02/04/24 10:00 Mucosa - Nose SARS-CoV-2, Influenza & RSV (PCR) - Final ABG Data ABG results: ABG 02/05/24 08:47 Specimen Type ART Sample Site R Radial pH 7.45 Bicarbonate Actual 47.8 H Total CO2 50 Base Excess 24 H O2 Saturation 92 L O2 % 3.0 ABG pCO2 69.4 H* ABG pO2 65 L David Test Positive O2 Delivery Device Cannula Vent Mode Not entered Crit Call To/Read Back Yes Blood Gas Notified Whom KORAM Blood Gas Notified Time 08:49:18 Radiography Diagnostic Testing: Radiology Impression Chest X-Ray 02/04/24 09:38 IMPRESSION: Vascular congestion mild CHF with blunting of both costophrenic angles and increased markings at the left lung base suggest mild atelectasis. Electronically Signed: Jordan Gu MD at 10:17 EDT , Physical Exam Const alert and no apparent distress General Appearance: cooperative HEENT normocephalic and head/scalp atraumatic Eyes PERRL and EOMs intact bilaterally Neck no lymphadenopathy and supple Lymph Lymphatic: no lymphadenopathy noted and no lymphedema noted Resp Resp Narrative: moderately diminished breath sounds bibasally, no wheezes or crackles. On 4L of oxygen. Cardio regular rate, regular rhythm, S1 normal heart sound, S2 normal heart sound and no murmurs GI normal to inspection, nondistended, normoactive bowel sounds, soft to palpation, non-tender and non-distended Extremity normal capillary refill, no clubbing, cyanosis or edema and no calf tenderness General Extremity: no tenderness to palpation of joints or extremities Skin General Skin Exam: no breakdown Neuro CN's II-XII intact bilaterally and no focal motor deficits Motor Exam: general weakness Psych cooperative and affect normal Appearance: appropriate Assessment & Plan Assessment/Plan (1) Respiratory failure: PLAN: Plan # Acute on chronic hypoxic and hypercapnic respiratory failure due to acute exacerbation of heart failure and COPD exacerbation * Patient was admitted from the [facility] with a complaint of shortness of breath. BNP is elevated. * Chest x-ray shows evidence of fluid overload. * Bicarb on BMP was more than 45 so ABG was checked which showed pCO2 of 91. Patient was on BiPAP overnight. ABG today showed pCO2 of 69. * On IV Lasix 40 mg twice daily. * Monitor intake and output. Fluid restriction to 1500 cc daily. * Wean off BiPAP as tolerated once ABG comes down. * Breathing treatment with Bronchodilators. * place on IV solumedrol * continue BIPAP intermittently * #Sick sinus syndrome: s/p pacemaker on 04/2016. #Hypertension: on lisinopril and metoprolol DVT prophylaxis: lovenox CODE STATUS:DNRCCA * Charges/Coding Visit Charges Inpatient E&M: 95077 Subs Hosp L2
--- NOTE | 2024-02-05 12:46 | CHAPLAIN ---
Type of Pastoral Visit _x__ Initial Visit ___ Follow-up Visit ___ On-call Visit ___ General Patient Visit ___ Spiritual Assessment ___ Family Conference ___ Bereavement ___ Rapid Response ___ Code Blue ___ Other (describe below) Pastoral Care Referral From _x__ Patient ___ Family ___ Nurse ___ Physician ___ Spinning Frame Fixer ___ Window Treatment Installer ___ Other (describe below) Sacrament/Intervention ___ Active listening ___ Anointing ___ Religious ___ Bereavement ___ Communion ___ Yeny exploration ___ ___ Life review _x__ Prayer ___ Reconciliation ___ Sacrament of Sick _x__ Supportive presence ___ Wedding ___ Other (describe below) Pastoral Comments patient had an RN assist her but was on the way out of the room; pt is awake and but has a difficult time focusing and staying awake during the brief visit; pt is pleasant and welcomes support; pt agrees to a prayer; pt however cannot continue with a conversation and so visit ended
--- NOTE | 2024-02-05 13:55 | CASEMGMT ---
Patient is from [facility]. SW will follow therapy to see if SNF is recommended. Sofie Vora FAITH DOCTOR REEMA
[2024-02-05] MEDS: 0.9% Saline Lock 10 ML Syringe IV (14:11)
--- NOTE | 2024-02-05 14:32 | CASEMGMT ---
Discharge Planning Therapy evals sent via [facility] to [facility] to see if they would like SNF stay [facility]. Awaiting response. Zehra Salgado, Discharge Planning Asst.
--- NOTE | 2024-02-05 21:51 | CPS ---
Pt refused bipap, tried it on for tonight and within 5 minutes pt had it off. RN notified.
[2024-02-06] VITALS (11 sets, daily range): BP systolic 101–150; BP diastolic 50–90; PULSE 67–87; RESP 18–22; TEMP 36.3–36.8; O2SAT 90–98
[2024-02-06] MEDS: 0.9% Saline Lock 10 ML Syringe IV ×3 (05:47→21:25)
[2024-02-06 06:34] LABS: Absolute Lymphocyte Count 0.35 X10^3/uL (0.83-4.51); Absolute Neutrophil Count 9.3 X10^3/uL (2.0-7.7); Basophil# 0.01 X10^3/uL; Basophil% 0.1 % (0-1); Hematocrit 45.7 % (37-47); Hemoglobin 14.2 g/dL (12.0-15.0); Lymphocyte # 0.35 X10^3/ul (0.83-4.51); Lymphocyte % 3.5 % (19-41); Mean Corp Hgb Conc 31.1 g/dL (32-36); Mean Corpuscular Hgb 29.4 pg (27.0-32.0); Mean Corpuscular Volume 94.6 fL (81-99); Monocyte# 0.39 X10^3/uL; Monocyte% 3.9 % (0-10); NRBC Flagged by Analyzer 0 % (0-5); Neutrophil # 9.26 X10^3/uL (2.7-7.7); Neutrophil % 91.9 % (47-70); POSITIVE DIFFERENTIAL YES; Platelet Count 211 K/mm3 (150-450); RBC Distribution Width CV 13.4 % (11.6-14.6); RBC Distribution Width SD 47.1 fl (35.1-43.9); Red Blood Count 4.83 M/mm3 (4.2-5.4); White Blood Count 10.1 K/mm3 (4.4-11.0)
[2024-02-06 07:33] LABS: BUN 31 mg/dL (7-18); BUN/Creat Ratio 44.9 RATIO (10-20); Calcium,Total 9.3 mg/dL (8.5-10.1); Carbon Dioxide > 45.0 mmol/L (21.0-32.0); Chloride 87 mmol/L (98-107); Creatinine, Serum 0.69 mg/dL (0.55-1.02); EST Glomerular Filtration Rate 86 mL/min (>60); Est Glom Filt Rate - Afr Amer 104 mL/min (>60); Estimated Creatinine Clearance 52.45 ml/min; Glucose 171 mg/dL (74-106); Potassium 3.9 mmol/L (3.5-5.1); Sodium Level 139 mmol/L (136-145)
[2024-02-06] MEDS: Furosemide 40 MG/4 ML Vial IV ×2 (09:37→18:48)
[2024-02-06] MEDS: Enoxaparin 40 MG/0.4 ML Syringe SC (09:37)
[2024-02-06] MEDS: Ensure Plus High Protein 120 ML LIQUID PO ×2 (09:37→18:48)
[2024-02-06] MEDS: Metoprolol(XL)Succ 25 MG Tablet PO (09:38)
[2024-02-06] MEDS: Lisinopril 10 MG Tablet PO (09:39)
[2024-02-06] MEDS: Cyanocobalamin 500 MCG Tablet PO (09:39)
[2024-02-06 09:48] LABS: Allen Test Positive; Base Excess 26 mmol/L (-2 to +2); Bicarbonate 50.8 mmol/L (22-26); Blood Gas Specimen Type ART; Mode Not entered; O2 Delivery Device Cannula; PO2 91 mmHG (75-100); SITE R Radial; SO2 97 % (95-99); Total Carbon Dioxide > 50 mmol/L; pH 7.43 (7.35-7.45)
--- NOTE | 2024-02-06 13:07 | CASEMGMT ---
[facility] feels patient is fine to return to assisted living. SW placed a green sheet on patient's chart should patient be ready over the weekend. Plan: d/c back to [facility] assisted living when medically ready. Sofie BENAVIDEZ
--- NOTE | 2024-02-06 13:16 | PN_ITS ---
Subjective Subjective Patient seen and examined. She was on BiPAP. She had no active complaints. She denied any worsening shortness of breath, chest pain, palpitations, dizziness, nausea vomiting or any other symptoms. ABGs done today showed a pCO2 so elevated. Objective Data Objective Data Vital Signs: Vital Signs Temp Pulse Resp BP Pulse Ox O2 Del Method O2 Flow Rate 98.2 F 69 20 H 148/79 H 96 Nasal Cannula 4 02/06/24 09:42 02/06/24 09:42 02/06/24 09:42 02/06/24 09:42 02/06/24 11:12 02/06/24 09:42 02/06/24 11:12 FiO2 30 02/04/24 23:42 Oxygen Flow Rate (L/min) 4 Oxygen Delivery Method Nasal Cannula Weight: 175 lb 4.28 oz Body Mass Index (BMI) 30.0 Intake & Output: Intake and Output for Last 24 Hours 02/04/24 02/05/24 02/06/24 23:59 23:59 23:59 Intake Total 120 / 120 Output Total 800 / 800 1750 / 1750 1200 / 1200 Balance -800 / -800 -1630 / -1630 -1200 / -1200 Lab / Micro Data 02/06/24 06:05 02/06/24 06:05 Labs: Laboratory Results - last 24 hr 02/06/24 06:05: WBC 10.1, RBC 4.83, Hgb 14.2, Hct 45.7, MCV 94.6, MCH 29.4, MCHC 31.1 L, RDW Std Deviation 47.1 H, RDW Coeff of Shilpa 13.4, Plt Count 211, MPV 10.0, Immature Gran % (Auto) 0.600, Neut % (Auto) 91.9 H, Lymph % (Auto) 3.5 L, [place] % (Auto) 3.9, Eos % (Auto) 0.0, Baso % (Auto) 0.1, Absolute Neuts (auto) 9.3 H, Absolute Lymphs (auto) 0.35 L, Nucleated RBC % 0, Sodium 139, Potassium 3.9, Chloride 87 L, Carbon Dioxide > 45.0 H*, Anion Gap TNP, BUN 31 H, Creatinine 0.69, Estim Creat Clear Calc 52.45, Est GFR (MDRD) Af Amer 104, Est GFR (MDRD) Non-Af 86, BUN/Creatinine Ratio 44.9 H, Glucose 171 H, Calcium 9.3 Micro: Microbiology 02/04/24 09:50 Blood Culture (Wb) #2 - Anticubital Right Blood Culture - Preliminary No growth in 48 hours. 02/04/24 09:50 Blood Culture (Wb) - Left Hand Blood Culture - Preliminary No growth in 48 hours. 02/04/24 10:00 Mucosa - Nose SARS-CoV-2, Influenza & RSV (PCR) - Final ABG Data ABG results: ABG 02/06/24 09:40 Specimen Type ART Sample Site R Radial pH 7.43 Bicarbonate Actual 50.8 H Total CO2 > 50 Base Excess 26 H O2 Saturation 97 O2 % 4.0 ABG pCO2 77.0 H* ABG pO2 91 David Test Positive O2 Delivery Device Cannula Vent Mode Not entered Crit Call To/Read Back Yes Blood Gas Notified Whom KORAM Blood Gas Notified Time 09:45:18 Physical Exam Const alert and no apparent distress General Appearance: cooperative Orientation / Consciousness: confused and lethargic HEENT normocephalic and head/scalp atraumatic Eyes PERRL and EOMs intact bilaterally Neck no lymphadenopathy and supple Lymph Lymphatic: no lymphadenopathy noted and no lymphedema noted Resp Resp Narrative: moderately diminished breath sounds bibasally, no wheezes or crackles. On BIPAP Cardio regular rate, regular rhythm, S1 normal heart sound, S2 normal heart sound and no murmurs GI normal to inspection, nondistended, normoactive bowel sounds, soft to palpation, non-tender and non-distended Extremity normal capillary refill, no clubbing, cyanosis or edema and no calf tenderness General Extremity: no tenderness to palpation of joints or extremities Skin General Skin Exam: no breakdown Neuro CN's II-XII intact bilaterally and no focal motor deficits Motor Exam: general weakness Psych cooperative and affect normal Psych Narrative: confused, lethargic Appearance: appropriate Assessment & Plan Assessment/Plan (1) Respiratory failure: PLAN: Plan # Acute on chronic hypoxic and hypercapnic respiratory failure due to acute exacerbation of heart failure and COPD exacerbation * Patient was admitted from the long-term with a complaint of shortness of breath. BNP is elevated. * Chest x-ray shows evidence of fluid overload. * Bicarb on BMP was more than 45 so ABG was checked which showed pCO2 of 91. Patient was on BiPAP overnight. ABG today showed pCO2 of 77 * Patient placed on BiPAP today. She has been on BiPAP intermittently but has not been tolerating it well. * Pulmonology consulted. * On IV Lasix 40 mg twice daily. * Monitor intake and output. Fluid restriction to 1500 cc daily. * Breathing treatment with Bronchodilators. * place on IV solumedrol * continue BIPAP intermittently * #Sick sinus syndrome: s/p pacemaker on 04/2016. #Hypertension: on lisinopril and metoprolol DVT prophylaxis: lovenox CODE STATUS:DNRCCA * Charges/Coding Visit Charges Inpatient E&M: 89363 [facility] Hosp L3
--- NOTE | 2024-02-06 14:42 | EX.PCM.CONCC ---
Assessment & Plan Assessment/Plan (1) Respiratory failure: (2) CHF (congestive heart failure): (3) Secondary pulmonary arterial hypertension: (4) JONATAN (obstructive sleep apnea): PLAN: Plan RECOMMENDATIONS: 1. Continue empiric steroids and bronchodilators for now 2. Wean oxygen as tolerated 3. Continue BiPAP with sleep 4. Agree with diuresis as tolerated. Electrolytes as necessary 5. Attempt to clarify history with family members 6. Patient DNR Comfort Care arrest without intubation per hospitalist note IMPRESSIONS: 1. Acute on chronic combined respiratory failure Unclear etiology. Patient does have previous pulmonary function test suggestive of COPD/asthma overlap syndrome. Patient clinically if appears to be somewhat volume overloaded would benefit from diuresis. Patient also has an element of type II pulmonary hypertension. Clinical suspicion for an element of obesity hypoventilation, but history is unclear. Patient does appear to have significant compensation for CO2 retention. It is unclear patient has been compliant with JONATAN therapy and this could be leading to continued fluid retention. Patient may benefit from an outpatient evaluation for BiPAP versus NIV 2. Sick sinus syndrome/hypertension/advanced age/dementia Complicates care, management, recovery and prognosis. Patient unable to provide much additional information at this time. Unclear if this is patient's baseline dementia versus delirium from problem #1. Okay to continue with baseline medications from my perspective. Will need to watch blood sugars closely given patient's steroids for problem #1. HPI Consult Data Date of Consult: 02/06/24 HPI Narrative Reason for Consultation: Shortness of breath HPI Narrative: TINO SONI is an 83 F, with past medical history listed below, who presents to [facility] on 02/04/2024 secondary to shortness of breath from an ECF. Patient reportedly has a baseline of dementia and had been complaining of a cough. On EMS arrival, patient was noted to be 87% on room air and desaturated as far as 73% on room air. Patient was given an aerosol with some improvement in symptomatology. Patient had denied any chest pain. Patient does not appear to be on any maintenance inhalers at this time. In the ER, patient was afebrile, but tachypneic as high as 26 breaths/min. Patient initially was noted to be 73% on room air and required 6 L to continue to maintain saturations. Patient was slightly hypertensive at 137/76. Laboratory workup showed a white blood cell count of 11.2, hemoglobin 12.8 and platelets of 195. Patient did have a left shift noted. Chemistry showed a bicarbonate of 45, creatinine of 0.76 and a glucose of 176. Lactate was slightly elevated at 2.3 and BNP was elevated at 319. Troponins were mildly elevated at 66. Chest x-ray had shown some mild CHF with blunting of the costophrenic angles. Patient was given IV Lasix and initiated on BiPAP for short period of time. Patient was admitted to the PCU for further evaluation. On my evaluation, patient was on nasal cannula oxygen, but was very difficult to get a history from. Patient had not reported any shortness of breath and had no recollection of her transfer to the hospital. Patient is not currently reporting any chest pain. Patient is not aware of any cough. Patient is not able to provide any information as to recent fever, chills or change in sputum. Review of the medical record shows patient did have a PFT on 06/24/2016 showing a partially reversible mild large airways obstructive ventilatory defect with a disproportionate reduction in diffusion capacity in a pattern consistent with COPD/asthma overlap (FVC 95%, FEV1 84%, TLC 106%, DLCO 65%). Patient also has had an echocardiogram at the end of 2022 showing an EF of 65% with no significant valvular abnormalities. [facility] Medical History Allergic rhinitis COPD (chronic obstructive pulmonary disease) LEAL (dyspnea on exertion) Dyspnea Essential hypertension GERD (gastroesophageal reflux disease) JONATAN (obstructive sleep apnea) Secondary pulmonary arterial hypertension Sick sinus syndrome Syncope Home Medications lisinopril 10 mg tablet 10 mg PO DAILY #90 tabs 12/24/19 [Rx Last Taken Unknown] metoprolol succinate 25 mg tablet,extended release 24 hr 25 mg PO DAILY #90 tabs 08/25/23 [Rx Last Taken Unknown] acetaminophen 325 mg tablet 650 mg PO Q6H PRN Pain 1-10 Or Fever>100.7 02/04/24 [History Last Taken Unknown] albuterol sulfate 2.5 mg/0.5 mL solution for nebulization 2.5 mg inhalation Q4H PRN shortness of breath or wheezing 02/04/24 [History Last Taken Unknown] cyanocobalamin (vitamin B-12) 250 mcg tablet 500 mcg PO DAILY 02/04/24 [History Last Taken Unknown] food supplemt, lactose-reduced 0.06 gram-1 kcal/mL oral liquid (Boost High Protein) 120 ml PO BID 02/04/24 [History Last Taken Unknown] furosemide 20 mg tablet 20 mg PO DAILY 02/04/24 [History Last Taken Unknown] hydrocortisone 2.5 % topical cream 1 applic topical BID DERMATITIS 02/04/24 [History Last Taken Unknown] polyethylene glycol 400 0.25 % eye drops 1 drp ophthalmic (eye) Q6H PRN DRY EYE 02/04/24 [History Last Taken Unknown] Allergy/AdvReac Type Severity Reaction Status Date / Time No Known Allergies Allergy Verified 02/04/24 09:35 Family History Mother pacemaker Father pacemaker Surgical History History of left heart catheterization (~05/13/16) History of tonsillectomy Presence of cardiac pacemaker (~04/2016) Social History household members: none Smoking Status: Never smoker second hand exposure: No alcohol intake: never substance use type: does not use caffeine: No what type of physical activity do you participate in: other frequency: 3-4 times per week ROS Review of Systems ROS Unobtainable: due to mental status Physical Exam Const alert and no apparent distress Constitutional Narrative: No conversational dyspnea General Appearance: cooperative Orientation / Consciousness: confused HEENT normocephalic, head/scalp atraumatic and moist oral mucous membranes Eyes PERRL, EOMs intact bilaterally and conjunctivae normal Neck no lymphadenopathy and supple Lymph Lymphatic: no lymphadenopathy noted Chest Chest Narrative: Increased AP diameter Resp Effort and Inspection: Negative for actively coughing Auscultation: diminished lung sounds; Negative for rales, rhonchi or wheezes Cardio regular rate, regular rhythm, S1 normal heart sound, S2 normal heart sound, no murmurs, no rub and no gallops GI normal to inspection, nondistended, normoactive bowel sounds, soft to palpation, non-tender and non-distended Extremity normal capillary refill and no clubbing, cyanosis or edema Skin no rashes or lesions noted Neuro CN's II-XII intact bilaterally, moves all extremities and no focal motor deficits Motor Exam: general weakness Psych cooperative Psych Narrative: confused, lethargic Mood & Affect: flat affect Medical Records Data Attestation: I reviewed the patient's medical records (See HPI) Lab / Micro Data Attestation: I reviewed the patient's lab results. 02/06/24 06:05 02/06/24 06:05 Labs: Laboratory Results - last 24 hr 02/06/24 06:05: WBC 10.1, RBC 4.83, Hgb 14.2, Hct 45.7, MCV 94.6, MCH 29.4, MCHC 31.1 L, RDW Std Deviation 47.1 H, RDW Coeff of Shilpa 13.4, Plt Count 211, MPV 10.0, Immature Gran % (Auto) 0.600, Neut % (Auto) 91.9 H, Lymph % (Auto) 3.5 L, [place] % (Auto) 3.9, Eos % (Auto) 0.0, Baso % (Auto) 0.1, Absolute Neuts (auto) 9.3 H, Absolute Lymphs (auto) 0.35 L, Nucleated RBC % 0, Sodium 139, Potassium 3.9, Chloride 87 L, Carbon Dioxide > 45.0 H*, Anion Gap TNP, BUN 31 H, Creatinine 0.69, Estim Creat Clear Calc 52.45, Est GFR (MDRD) Af Amer 104, Est GFR (MDRD) Non-Af 86, BUN/Creatinine Ratio 44.9 H, Glucose 171 H, Calcium 9.3 Micro: Microbiology 02/04/24 09:50 Blood Culture (Wb) #2 - Anticubital Right Blood Culture - Preliminary No growth in 48 hours. 02/04/24 09:50 Blood Culture (Wb) - Left Hand Blood Culture - Preliminary No growth in 48 hours. ABG Data ABG results: ABG 02/06/24 09:40 Specimen Type ART Sample Site R Radial pH 7.43 Bicarbonate Actual 50.8 H Total CO2 > 50 Base Excess 26 H O2 Saturation 97 O2 % 4.0 ABG pCO2 77.0 H* ABG pO2 91 David Test Positive O2 Delivery Device Cannula Vent Mode Not entered Crit Call To/Read Back Yes Blood Gas Notified Whom KORAM Blood Gas Notified Time 09:45:18 Attestation: I personally reviewed and interpreted this ABG as follows: (Partially compensated acute on chronic metabolic alkalosis) Charges/Coding Visit Charges Inpatient E&M: 62037 Init Hosp L3
[2024-02-06] MEDS: Ondansetron 4 MG/2 ML Vial IV (14:46)
[2024-02-07] VITALS (9 sets, daily range): BP systolic 101–113; BP diastolic 49–69; PULSE 68–78; RESP 18; TEMP 36.3–36.6; O2SAT 89–94
[2024-02-07 06:14] LABS: Absolute Lymphocyte Count 0.22 X10^3/uL (0.83-4.51); Absolute Neutrophil Count 9.8 X10^3/uL (2.0-7.7); Basophil# 0.01 X10^3/uL; Basophil% 0.1 % (0-1); Hematocrit 47.9 % (37-47); Hemoglobin 14.3 g/dL (12.0-15.0); Lymphocyte # 0.22 X10^3/ul (0.83-4.51); Lymphocyte % 2.1 % (19-41); Mean Corp Hgb Conc 29.9 g/dL (32-36); Mean Corpuscular Hgb 28.7 pg (27.0-32.0); Mean Corpuscular Volume 96.2 fL (81-99); Mean Platelet Vol. 10.1 fl (6.2-12.0); Monocyte# 0.37 X10^3/uL; Monocyte% 3.6 % (0-10); NRBC Flagged by Analyzer 0 % (0-5); Neutrophil # 9.77 X10^3/uL (2.7-7.7); Neutrophil % 93.7 % (47-70); POSITIVE DIFFERENTIAL YES; Platelet Count 232 K/mm3 (150-450); RBC Distribution Width CV 13.6 % (11.6-14.6); RBC Distribution Width SD 48.6 fl (35.1-43.9); Red Blood Count 4.98 M/mm3 (4.2-5.4); White Blood Count 10.4 K/mm3 (4.4-11.0)
[2024-02-07 07:16] LABS: BUN 44 mg/dL (7-18); BUN/Creat Ratio 50.9 RATIO (10-20); Carbon Dioxide > 45.0 mmol/L (21.0-32.0); Chloride 85 mmol/L (98-107); Creatinine, Serum 0.86 mg/dL (0.55-1.02); EST Glomerular Filtration Rate 66 mL/min (>60); Est Glom Filt Rate - Afr Amer 80 mL/min (>60); Estimated Creatinine Clearance 48.79 ml/min; Glucose 161 mg/dL (74-106); Potassium 4.2 mmol/L (3.5-5.1); Sodium Level 137 mmol/L (136-145)
--- NOTE | 2024-02-07 08:55 | CPS ---
RT walked by pt room, Bipap was alarming. Pt stated she did not want bipap on at this time, RT placed pt back on NC @ 4L. Pt sat was 89%, RT increased NC to 5L at this time
[2024-02-07] MEDS: Enoxaparin 40 MG/0.4 ML Syringe SC (09:34)
[2024-02-07] MEDS: Furosemide 40 MG/4 ML Vial IV (09:34)
[2024-02-07] MEDS: Metoprolol(XL)Succ 25 MG Tablet PO (09:34)
[2024-02-07] MEDS: Ensure Plus High Protein 120 ML LIQUID PO ×2 (09:34→17:38)
[2024-02-07] MEDS: Cyanocobalamin 500 MCG Tablet PO (09:35)
[2024-02-07] MEDS: Lisinopril 10 MG Tablet PO (09:35)
--- NOTE | 2024-02-07 11:52 | PN_ITS ---
Subjective Subjective Patient seen and examined. She was on BiPAP. She had no active complaints at time I reviewed her. Review of systems otherwise negative. She has remained hemodynamically stable. Objective Data Objective Data Vital Signs: Vital Signs Temp Pulse Resp BP Pulse Ox O2 Del Method O2 Flow Rate 97.4 F L 68 18 112/69 94 Nasal Cannula 3 02/07/24 09:29 02/07/24 09:34 02/07/24 09:29 02/07/24 09:29 02/07/24 09:29 02/07/24 09:29 02/07/24 09:29 FiO2 30 02/04/24 23:42 Oxygen Flow Rate (L/min) 3 Oxygen Delivery Method Nasal Cannula Weight: 175 lb 4.28 oz Body Mass Index (BMI) 30.0 Intake & Output: Intake and Output for Last 24 Hours 02/05/24 02/06/24 02/07/24 23:59 23:59 23:59 Intake Total 120 / 120 Output Total 1750 / 1750 1300 / 1300 100 / 100 Balance -1630 / -1630 -1300 / -1300 -100 / -100 Lab / Micro Data 02/07/24 05:17 02/07/24 05:17 Labs: Laboratory Results - last 24 hr 02/07/24 05:17: WBC 10.4, RBC 4.98, Hgb 14.3, Hct 47.9 H, MCV 96.2, MCH 28.7, MC HC 29.9 L, RDW Std Deviation 48.6 H, RDW Coeff of Shilpa 13.6, Plt Count 232, MPV 10.1, Immature Gran % (Auto) 0.500, Neut % (Auto) 93.7 H, Lymph % (Auto) 2.1 L, [place] % (Auto) 3.6, Eos % (Auto) 0.0, Baso % (Auto) 0.1, Absolute Neuts (auto) 9.8 H, Absolute Lymphs (auto) 0.22 L, Nucleated RBC % 0, Sodium 137, Potassium 4.2, Chloride 85 L, Carbon Dioxide > 45.0 H*, Anion Gap TNP, BUN 44 H, Creatinine 0.86, Estim Creat Clear Calc 48.79, Est GFR (MDRD) Af Amer 80, Est GFR (MDRD) Non-Af 66, BUN/Creatinine Ratio 50.9 H, Glucose 161 H, Calcium 9.0 Micro: Microbiology 02/04/24 09:50 Blood Culture (Wb) #2 - Anticubital Right Blood Culture - Preliminary No growth in 48 hours. 02/04/24 09:50 Blood Culture (Wb) - Left Hand Blood Culture - Preliminary No growth in 48 hours. 02/04/24 10:00 Mucosa - Nose SARS-CoV-2, Influenza & RSV (PCR) - Final Physical Exam Const alert, oriented x3 and no apparent distress General Appearance: cooperative HEENT normocephalic and head/scalp atraumatic Eyes PERRL and EOMs intact bilaterally Neck no lymphadenopathy and supple Lymph Lymphatic: no lymphadenopathy noted and no lymphedema noted Resp Resp Narrative: moderately diminished breath sounds bibasally, no wheezes or crackles. On BIPAP Cardio regular rate, regular rhythm, S1 normal heart sound, S2 normal heart sound and no murmurs GI normal to inspection, nondistended, normoactive bowel sounds, soft to palpation, non-tender and non-distended Extremity normal capillary refill, no clubbing, cyanosis or edema and no calf tenderness General Extremity: no tenderness to palpation of joints or extremities Skin General Skin Exam: no breakdown Neuro CN's II-XII intact bilaterally and no focal motor deficits Motor Exam: general weakness Psych cooperative and affect normal Psych Narrative: confused, lethargic Appearance: appropriate Assessment & Plan Assessment/Plan (1) Respiratory failure: PLAN: Plan # Acute on chronic hypoxic and hypercapnic respiratory failure due to acute exacerbation of heart failure and COPD exacerbation * remains on BIPAP. WIll switch lasix to PO lasix starting from this evening * Chest x-ray shows evidence of fluid overload. * Bicarb on BMP was more than 45 so ABG was checked which showed pCO2 of 91. Patient was on BiPAP overnight. ABG today showed pCO2 of 77 * Patient placed on BiPAP today. She has been on BiPAP intermittently but has not been tolerating it well. * Pulmonology on board. * on IV solumedrol * Monitor intake and output. Fluid restriction to 1500 cc daily. * Breathing treatment with Bronchodilators. * continue BIPAP intermittently * #Sick sinus syndrome: s/p pacemaker on 04/2016. #Hypertension: on lisinopril and metoprolol DVT prophylaxis: lovenox CODE STATUS:DNRCCA * Disposition: For likely DC tomorrow Charges/Coding Visit Charges Inpatient E&M: 21611 Subs Hosp L2
--- NOTE | 2024-02-07 12:00 | CASEMGMT ---
Social Work This play writer collaborated with nurse caseworker, possible need for BiPAP at discharge. This play writer called [facility] and spoke with Nancie. Inquired whether patient is already on oxygen at the facility. Patient is indeed on oxygen at the assisted living usually running a rate of 3 liters. Updated nurse caseworker. Plan: return to assisted living at time of discharge. Green sheet is on the chart to follow in case of weekend discharge. -MIS Rai, EDUCATION PROGRAM MANAGER *This note was generated with [employer] dictation software. It may contain incorrect words, spelling, and punctuation that were not noted in review of the chart prior to signing*
--- NOTE | 2024-02-07 14:11 | PN.CC_ITS ---
Objective Data Objective Data Vital Signs: Vital Signs Last response Temperature 36.3 C L 02/07/24 09:29 Temperature Source Temporal 02/07/24 09:29 Pulse Rate 68 02/07/24 09:34 Respiratory Rate 18 02/07/24 09:29 Respiratory Effort Normal, Non-Labored 02/07/24 09:00 Respiratory Depth Normal 02/07/24 09:00 Respiratory Pattern Normal 02/07/24 09:00 Blood Pressure 112/69 02/07/24 09:29 Blood Pressure Mean 83 02/07/24 09:29 Blood Pressure Source Monitor 02/07/24 09:29 Blood Pressure Position Sitting 02/07/24 09:29 Blood Pressure Location Right Arm 02/07/24 09:29 Pulse Ox 93 02/07/24 13:31 Oxygen Delivery Method Nasal Cannula 02/07/24 09:29 Oxygen Flow Rate (L/min) 4 02/07/24 13:31 Fraction of Inspired Oxygen (FIO2) 30 02/04/24 23:42 I&O: I&O Last 24 Hours 02/06/24 02/07/24 02/07/24 23:59 11:59 23:59 Output Total 1000 / 1300 100 / 100 Balance -1000 / -1300 -100 / -100 I&O: Total Stay 02/04/24 09:24 thru 02/07/24 06:00 Intake Total 120 Output Total 3950 Balance -3830 Current Meds Ordered / Administered: Current meds ordered / Administered Generic Name Dose Route Start Last Admin Trade Name Freq PRN Reason Stop Dose Admin Acetaminophen 650 mg 02/04/24 13:43 Acetaminophen 325 Mg Tablet PO Q6H PRN Pain 1-10 Or Fever>100.7 Cyanocobalamin 500 mcg 02/05/24 10:00 02/07/24 09:35 Cyanocobalamin 500 Mcg Tablet PO 500 mcg DAILY ELAINE Administration Enoxaparin Sodium 40 mg 02/05/24 10:00 02/07/24 09:34 Enoxaparin 40 Mg/0.4 Ml Syringe SC 40 mg DAILY ELAINE Administration Furosemide 40 mg 02/04/24 18:00 02/07/24 09:34 Furosemide 40 Mg/4 Ml Vial IV 40 mg BIDLX ELAINE Administration Protocol Glycerin/Hypromellose/Polyethylene 1 drp 02/04/24 13:49 Glycerin/Hypromellose/[id number] 15 Ml Bottle OPHTHALMIC Q6H PRN DRY EYE Hydrocortisone 1 applic 02/04/24 22:00 02/07/24 09:31 Hydrocortisone 2.5% Crm TOPICAL Not Given BID [facility] Protocol Sodium Chloride 250 mls @ 15 mls/hr 02/04/24 13:44 IV .[id number] PRN Additional IVPB Infusion Sodium Chloride 250 mls @ 15 mls/hr 02/04/24 13:44 IV .[id number] PRN Saline Flush Lisinopril 10 mg 02/05/24 10:00 02/07/24 09:35 Lisinopril 10 Mg Tablet PO 10 mg DAILY ELAINE Administration Protocol Methylprednisolone 40 mg 02/05/24 14:00 02/07/24 13:22 Methylprednisolone 40 Mg/Ml Vial IV 40 mg Q8 ELAINE Administration Metoprolol Succinate 25 mg 02/05/24 10:00 02/07/24 09:34 Metoprolol(Xl)Succ 25 Mg Tablet PO 25 mg DAILY [facility] Administration Protocol Morphine Sulfate 2 - 4 mg 02/04/24 13:43 Morphine 2 Mg/Ml Syringe IV Q3H PRN PRN Pain Score 6-10 Morphine Sulfate 2 - 4 mg 02/04/24 13:46 Morphine 4 Mg/Ml Syringe IV Q3H PRN PRN Pain Score 6-10 Nitroglycerin 0.4 mg 02/04/24 13:43 Nitroglycerin (Inpatient Use) 0.4 Mg Tab.Subl SL Q5M PRN CARDIAC/CHEST PAIN Nutritional Formula (Lactose Free) 120 ml 02/05/24 08:00 02/07/24 09:34 Ensure Plus High Protein 120 Ml Liquid PO 120 ml BIDCM ELAINE Administration Ondansetron HCl 4 mg 02/04/24 13:43 02/06/24 14:46 Ondansetron 4 Mg/2 Ml Vial IV 4 mg Q8H PRN PRN Administration NAUSEA/VOMITING Oxycodone HCl 5 mg 02/04/24 13:43 Oxycodone 5 Mg Tablet PO Q4H PRN PRN Pain Score 4-10 Sodium Chloride 10 - 40 ml 02/04/24 13:44 02/06/24 21:25 0.9% Saline Lock 10 Ml Syringe IV 10 ml UD PRN Administration SALINE FLUSH Lab / Micro Data 02/07/24 05:17 02/07/24 05:17 Labs: Laboratory Results - last 24 hr 02/07/24 05:17: WBC 10.4, RBC 4.98, Hgb 14.3, Hct 47.9 H, MCV 96.2, MCH 28.7, MCHC 29.9 L, RDW Std Deviation 48.6 H, RDW Coeff of Shilpa 13.6, Plt Count 232, MPV 10.1, Immature Gran % (Auto) 0.500, Neut % (Auto) 93.7 H, Lymph % (Auto) 2.1 L, [place] % (Auto) 3.6, Eos % (Auto) 0.0, Baso % (Auto) 0.1, Absolute Neuts (auto) 9.8 H, Absolute Lymphs (auto) 0.22 L, Nucleated RBC % 0, Sodium 137, Potassium 4.2, Chloride 85 L, Carbon Dioxide > 45.0 H*, Anion Gap TNP, BUN 44 H, Creatinine 0.86, Estim Creat Clear Calc 48.79, Est GFR (MDRD) Af Amer 80, Est GFR (MDRD) Non-Af 66, BUN/Creatinine Ratio 50.9 H, Glucose 161 H, Calcium 9.0 Assessment and Plan . Assessment and plan: No acute events over night. Responding to diuresis. Did not wear NIV over night (unclear why) but did use briefly this AM. Currently resting on 4L (baseline appears to be 3L) on NC with sats mid-90s. PE: General: Well developed, chronically ill elderly female; in no distress HEENT: anicteric Sclera, nl nose; supple neck, no masses Cardiovascular: S1/S2; No rubs, gallops; no displaced PM Respiratory: diminished; no crackles, wheezes, or rhonchi Abdominal: Non-tender; Non distended; hypoBS x 4; No Hepatosplenomegaly Extremities: Warm, well perfused; No clubbing, cyanosis; capillary refill < 2 sec Skin: intact, no rashes Neurological: A&Ox1 (?baseline) but no gross deficits appreciated A/P #Acute on chronic hypoxemic hypercapnic respiratory failure #CHF (congestive heart failure) with acute exacerbation #?COPD/asthma overlap vs other reactive airways syndrome #Secondary pulmonary arterial hypertension #JONATAN (obstructive sleep apnea) #Sick sinus syndrome/hypertension/advanced age/dementia -Back at baseline O2 req; titrate to keep sats ~90-92%; cont to encourage NIV qHS -Cont diuresis; strict I/Os; replace lytes as needed -Continue empiric steroids and bronchodilators for now but can target short 5-7d course DNR/DNI Possible transfer back to [place] in near future which seems reasonable. Will sign off but available as needed (please call and notify if reassessment needed). The entirety of this encounter was done via Telemedicine
[2024-02-07] MEDS: Furosemide 40 MG Tablet PO (17:36)
[2024-02-07] MEDS: 0.9% Saline Lock 10 ML Syringe IV (21:29)
[2024-02-07] MEDS: hydrOXYzine 50 MG/ML Vial 100 MG IM (23:58)
[2024-02-08] VITALS (8 sets, daily range): BP systolic 121–133; BP diastolic 64–90; PULSE 74–85; RESP 17–24; TEMP 36.2–37.2; O2SAT 91–95
--- NOTE | 2024-02-08 00:52 | CPS ---
Attempted to put pt on bipap/AVAPS, Pt had on for 1 minute, kept pulling it up to yell at RN and RT present in room. RT removed Bipap and placed pt back on her cannula.
[2024-02-08 06:53] LABS: Absolute Lymphocyte Count 0.24 X10^3/uL (0.83-4.51); Absolute Neutrophil Count 10.6 X10^3/uL (2.0-7.7); Basophil# 0.02 X10^3/uL; Basophil% 0.2 % (0-1); Hematocrit 45.9 % (37-47); Hemoglobin 13.9 g/dL (12.0-15.0); Lymphocyte # 0.24 X10^3/ul (0.83-4.51); Lymphocyte % 2.1 % (19-41); Mean Corp Hgb Conc 30.3 g/dL (32-36); Mean Corpuscular Volume 95.6 fL (81-99); Mean Platelet Vol. 10.3 fl (6.2-12.0); Monocyte# 0.63 X10^3/uL; Monocyte% 5.4 % (0-10); NRBC Flagged by Analyzer 0 % (0-5); Neutrophil # 10.62 X10^3/uL (2.7-7.7); Neutrophil % 91.6 % (47-70); POSITIVE DIFFERENTIAL YES; Platelet Count 206 K/mm3 (150-450); RBC Distribution Width CV 13.4 % (11.6-14.6); RBC Distribution Width SD 47.6 fl (35.1-43.9); White Blood Count 11.6 K/mm3 (4.4-11.0)
[2024-02-08] MEDS: Haloperidol Lactate 5 MG/ML Vial 2 MG IM (06:53)
[2024-02-08 07:19] LABS: BUN 58 mg/dL (7-18); BUN/Creat Ratio 60.5 RATIO (10-20); Calcium,Total 8.9 mg/dL (8.5-10.1); Carbon Dioxide > 45.0 mmol/L (21.0-32.0); Chloride 86 mmol/L (98-107); Creatinine, Serum 0.96 mg/dL (0.55-1.02); EST Glomerular Filtration Rate 59 mL/min (>60); Est Glom Filt Rate - Afr Amer 71 mL/min (>60); Estimated Creatinine Clearance 43.71 ml/min; Glucose 171 mg/dL (74-106); Potassium 4.3 mmol/L (3.5-5.1); Sodium Level 139 mmol/L (136-145)
[2024-02-08] MEDS: Lisinopril 10 MG Tablet PO (08:45)
[2024-02-08] MEDS: Cyanocobalamin 500 MCG Tablet PO (08:45)
[2024-02-08] MEDS: Enoxaparin 40 MG/0.4 ML Syringe SC (08:45)
[2024-02-08] MEDS: Ensure Plus High Protein 120 ML LIQUID PO (08:45)
[2024-02-08] MEDS: Furosemide 40 MG Tablet PO (08:46)
[2024-02-08] MEDS: Metoprolol(XL)Succ 25 MG Tablet PO (08:46)
--- NOTE | 2024-02-08 10:40 | NURSING ---
This nurse resuming care of this patient at this time.
[2024-02-08] MEDS: oxyCODONE 5 MG Tablet PO (11:50)
--- NOTE | 2024-02-08 12:37 | DS.PCM_ITS ---
Providers Date of Admission: 02/04/24 Date of Discharge: 02/08/24 Primary Care Physician: Beata Primary Care Phys Consultations 02/06/24 10:00 Consult: Residential Nurse / Pulmonary Medicine Routine Consulting Provider: Intensivists/Pulmonary Med Reason for Consult: acute on chronic hypercapnic respiratory failure due to COPD EMERGENT Consult: No MD Notified: Yes Date Notified: 02/06/24 Time Notified: 10:00 Method of Notification: Text Reason For Visit: ACUTE ON CHRONIC RESPIRATORY FAILURE Diagnosis Discharge Diagnosis (1) Respiratory failure: Status: Acute Code(s): J96.90 - Respiratory failure, unspecified, unspecified whether with hypoxia or hypercapnia Plan # Acute on chronic hypoxic and hypercapnic respiratory failure due to acute exacerbation of heart failure and COPD exacerbation * remains on BIPAP. WIll switch lasix to PO lasix starting from this evening * Chest x-ray shows evidence of fluid overload. * Bicarb on BMP was more than 45 so ABG was checked which showed pCO2 of 91. Patient was on BiPAP overnight. ABG today showed pCO2 of 77 * Patient placed on BiPAP today. She has been on BiPAP intermittently but has not been tolerating it well. * Pulmonology on board. * on IV solumedrol * Monitor intake and output. Fluid restriction to 1500 cc daily. * Breathing treatment with Bronchodilators. * continue BIPAP intermittently * #Sick sinus syndrome: s/p pacemaker on 04/2016. #Hypertension: on lisinopril and metoprolol DVT prophylaxis: lovenox CODE STATUS:DNRCCA * Disposition: For likely DC tomorrow Medications at Discharge Home Medications lisinopril 10 mg tablet 10 mg PO DAILY #90 tabs 12/24/19 metoprolol succinate 25 mg tablet,extended release 24 hr 25 mg PO DAILY #90 tabs 08/25/23 acetaminophen 325 mg tablet 650 mg PO Q6H PRN Pain 1-10 Or Fever>100.7 02/04/24 albuterol sulfate 2.5 mg/0.5 mL solution for nebulization 2.5 mg inhalation Q4H PRN shortness of breath or wheezing 02/04/24 cyanocobalamin (vitamin B-12) 250 mcg tablet 500 mcg PO DAILY 02/04/24 food supplemt, lactose-reduced 0.06 gram-1 kcal/mL oral liquid (Boost High Protein) 120 ml PO BID 02/04/24 hydrocortisone 2.5 % topical cream 1 applic topical BID DERMATITIS 02/04/24 polyethylene glycol 400 0.25 % eye drops 1 drp ophthalmic (eye) Q6H PRN DRY EYE 02/04/24 furosemide 40 mg tablet 40 mg PO DAILY #30 tabs 02/08/24 prednisone 20 mg tablet 40 mg (2 x 20 mg) PO DAILY #10 tabs 02/08/24 Hospital Course Operations None Procedures None Summary of Care Provided Minutes Spent on Discharge: 45 Hospital Course: TINO SONI, is a 83 F with a PMH as outlined who presents from her SNF via the ED on 02/04/2024 with a complaint of shortness of breath. She wasnt able to give much of a history due to dementia. She was found to be saturating at 87% on room air. She was placed on oxygen and given a breathing treatment and brought to the ED. Unable to do review of systems otherwise due to her severe dementia. Vitals in the ED were BP of 132/82, [place] of 80, RR of 18 and oxygen sats of 99%on 2L of oxygen. CBC was significant for hb of 12.8, wbc of 11.2 and platelets of 195. Chemistry showed sodium of 132, potassium of 3.8, bicarb of >45 and Cr of 0.76. BNP was 319.7, and initial troponin was 66. lactic acid was 2.3. CXR magnus wed vascular congestion with mild CHF and blunting of both costophrenic angles with increased markings at the left lung base suggesting mild atelectasis. I did request that an ABG should be ordered. She is being admitted to be managed for acute on chronic hypoxic and hypercapnic respiratory failure due to acute on chronic heart failure. Patient's daughter was by her bedside during review. Daughter could not give much of the history as she said patient came in from the group home and she was just told that she was short of breath there but did not have any other information. She was admitted and managed for acute exacerbation of heart failure with preserved EF and COPD exacerbation as well as acute on chronic hypoxic and hypercapnic respiratory failure. Shew as diuresed wiuth IV lasix. She also required BIPAP due to hypercapnia. Pulmonology was consulted. Her shortness of breath did improve and her mentation improved significantly and she was able to communicate well. She improved and was discharged back to her assisted living facility [facility] on 02/08/2020. Patient is on BiPAP intermittently and is to follow-up with pulmonology on outpatient basis to help facilitate this. She was discharged on p.o. Lasix. She is follow-up with her primary care doctor within 1 to 2 weeks and with her centerless grinder operator within 1 to 2 weeks also. Patient seen and examined prior to discharge. He had no active complaints and had an uneventful night. Review of systems otherwise negative. Labs and vitals reviewed. Home medication reviewed and reconciled. Physical Exam Const alert, oriented x3 and no apparent distress General Appearance: cooperative, comfortable and well kempt Orientation / Consciousness: awake Exam Limitations: no limitations HEENT normocephalic, head/scalp atraumatic and hearing grossly normal bilaterally Mouth: oral and palatal mucosa normal Eyes PERRL and EOMs intact bilaterally Neck no lymphadenopathy and supple Lymph Lymphatic: no lymphadenopathy noted and no lymphedema noted Resp Resp Narrative: moderately diminished breath sounds bibasally, no wheezes or crackles. On 4L of oxygen. Cardio regular rate, regular rhythm, S1 normal heart sound, S2 normal heart sound and no murmurs GI normal to inspection, nondistended, normoactive bowel sounds, soft to palpation, non-tender and non-distended Extremity normal to inspection, full ROM, normal capillary refill, no clubbing, cyanosis or edema and no calf tenderness General Extremity: no tenderness to palpation of joints or extremities Skin General Skin Exam: no breakdown Neuro oriented x3, CN's II-XII intact bilaterally, moves all extremities and no focal motor deficits Motor Exam: general weakness Psych cooperative and affect normal Appearance: appropriate Weight / BMI Weight Weight: 175 lb 4.28 oz Body Mass Index (BMI) 30.0 ABG / Lab / Microbiology Data 02/08/24 06:25 02/08/24 06:25 Laboratory: Laboratory Results - last 24 hr 02/08/24 06:25: WBC 11.6 H, RBC 4.80, Hgb 13.9, Hct 45.9, MCV 95.6, MCH 29.0, MCHC 30.3 L, RDW Std Deviation 47.6 H, RDW Coeff of Shilpa 13.4, Plt Count 206, MPV 10.3, Immature Gran % (Auto) 0.700, Neut % (Auto) 91.6 H, Lymph % (Auto) 2.1 L, [place] % (Auto) 5.4, Eos % (Auto) 0.0, Baso % (Auto) 0.2, Absolute Neuts (auto) 10.6 H, Absolute Lymphs (auto) 0.24 L, Nucleated RBC % 0, Sodium 139, Potassium 4.3, Chloride 86 L, Carbon Dioxide > 45.0 H*, Anion Gap TNP, BUN 58 H, Creatinine 0.96, Estim Creat Clear Calc 43.71, Est GFR (MDRD) Af Amer 71, Est GFR (MDRD) Non-Af 59 L, BUN/Creatinine Ratio 60.5 H, Glucose 171 H, Calcium 8.9 Microbiology: Microbiology 02/04/24 09:50 Blood Culture (Wb) #2 - Anticubital Right Blood Culture - Preliminary No growth in 48 hours. 02/04/24 09:50 Blood Culture (Wb) - Left Hand Blood Culture - Preliminary No growth in 48 hours. 02/04/24 10:00 Mucosa - Nose SARS-CoV-2, Influenza & RSV (PCR) - Final D/C Instructions Discharge Diet: Low fat / Low cholesterol Discharge Activity: Return to Normal Activity Weight Bearing Status: Weight bearing as tolerated Call your doctor if you observe: Fever of 101 or Higher, Shortness of breath, Dizziness, Swelling in the ankles, Chest pain and Increased palpitations (irregular heartbeat) Meaningful Use Info Meaningful Use Diagnoses (Choose all that apply): CHF CHF CATHY/ARB ordered at discharge?: Yes Documented LVEF (%): 65 Discharge Plan Admission Admit Date/Time: 02/04/24 11:04 Primary Reason for Your Visit: acute on chronic hypoxic and hypercapnic r espiratory failure Attending Provider: Anali Murrieta Primary Care Provider: Care Physician,No Primary Consulting Providers: Samuel Mckinnon; Walter Lobo; Tim Alexander; Ed Salgado; Abbey Christian; Jerome Preston; Lisa Silva; Frederick Bajwa; Arnav Marcelino; Francois Masterson; Melchor Yu; Edwin Gonzalez Instructions Patient Instructions: COPD Meds Discharge Orders/Prescriptions Prescriptions: New furosemide 40 mg tablet 40 mg PO DAILY Qty: 30 2RF prednisone 20 mg tablet 40 mg PO DAILY Qty: 10 0RF Continued lisinopril 10 mg tablet 10 mg PO DAILY Qty: 90 3RF metoprolol succinate 25 mg tablet extended release 24 hr 25 mg PO DAILY Qty: 90 3RF Boost High Protein 0.06 gram- 1 kcal/mL liquid 120 ml PO BID hydrocortisone 2.5 % cream 1 applic topical BID polyethylene glycol 400 0.25 % drops 1 drp ophthalmic (eye) Q6H PRN (Reason: DRY EYE) cyanocobalamin (vitamin B-12) 250 mcg tablet 500 mcg PO DAILY albuterol sulfate 2.5 mg/0.5 mL solution for nebulization 2.5 mg inhalation Q4H PRN (Reason: shortness of breath or wheezing) acetaminophen 325 mg Tablet 650 mg PO Q6H PRN (Reason: Pain 1-10 Or Fever>100.7) Discontinued furosemide 20 mg tablet 20 mg PO DAILY Referrals / Follow Up: Tim Alexander DO [Med Staff - Active Staff] - Within 2 Weeks Vivi Blanchard MD [Med Staff - Waterworks Supervisor] - Within 2 Weeks Care Physician,No Primary [Primary Care Provider] - Disposition Disposition (needs filled in before D/C Order can be placed): NonSkilled NH/Intermed Care Charges/Coding Visit Charges Inpatient E&M: 68616 Disch Hosp >30min
--- NOTE | 2024-02-08 14:20 | NURSING ---
I called the daughter Melinda and spoke with SAMMIE Wells over at [facility]. Gave report on the patient letting them know that the patient will be discharge back to the facility today. Transportation will be here at 15:00 to garbage pick up man.
--- NOTE | 2024-02-08 14:25 | NURSING ---
Mejia removed 10cc out of the balloon patient denies any discomfort. Catheter was intact
== END 2024-02-08 15:00 | disposition home or self-care (01) | DRG 291 ==
LOC: ED 11:07 → PCU 12:52
PROVIDERS: Admitting Provider Student in an Organized Health Care Education/Training Program; Emergency Provider Emergency Medicine; Visit Provider Student in an Organized Health Care Education/Training Program
DX: I11.0 Hypertensive heart disease with heart failure (principal); J96.21 Acute and chronic respiratory failure with hypoxia; I50.33 Acute on chronic diastolic (congestive) heart failure; J96.22 Acute and chronic respiratory failure with hypercapnia; J44.1 Chronic obstructive pulmonary disease with (acute) exacerbation; I49.5 Sick sinus syndrome; F03.C0 Unspecified dementia, severe, without behavioral disturbance, psychotic disturbance, mood disturbance, and anxiety; G47.33 Obstructive sleep apnea (adult) (pediatric); Z66 Do not resuscitate; Z95.0 Presence of cardiac pacemaker; Z79.899 Other long term (current) drug therapy
CPT/HCPCS: 36415; 36600; 71045; 80048; 82803; 83605; 83880; 84484; 85025; 87040; 87631; 93005; 94002; 94762; 97110; 97162; 97166; 97530; 97535; 99252; 99285; A4216; G0463; J1940; J2405

== ENCOUNTER → 2024-02-11 | Outpatient (REF) | payer MEDICARE, SELFPAY ==
[2024-02-11 08:34] LABS: Vitamin B12 834 pg/mL (211-911)
== END ==
LOC: OLS.WHLTSB 04:00
PROVIDERS: Referring Provider Internal Medicine; Visit Provider Internal Medicine
DX: R53.83 Other fatigue (principal); N17.9 Acute kidney failure, unspecified
CPT/HCPCS: 36415; 82607

== ENCOUNTER → 2024-03-01 | Outpatient (REF) | payer MEDICARE, SELFPAY ==
[2024-03-01 14:14] LABS: Color, Urine Yellow (Yellow); Glucose, Dipstick Normal (Normal); Ketone-Dipstick Negative (Negative); Leukocyte Esterase-Dipstick Negative /ul (Negative); Nitrite-Dipstick Positive (Negative); Occult Blood-Urine 10 /ul (Negative); Protein-Dipstick Negative (Negative); Urine Bilirubin Dipstick Negative (Negative); Urine Clarity Clear (Clear); Urine Urobilinogen Normal (Normal)
== END ==
LOC: OLS.WHLTSB 14:01
PROVIDERS: Visit Provider Internal Medicine
DX: N39.0 Urinary tract infection, site not specified (principal)
CPT/HCPCS: 81002; 87077; 87086; 87088; 87186